=== PATIENT | female | born 1965 | race Two or more races ===

== ENCOUNTER → 2024-08-13 | Outpatient (CLI) | payer BC, MEDICARE, SELFPAY ==
--- NOTE | 2024-08-13 16:18 | EKG_ITS ---
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
== END | disposition home or self-care (01) ==
LOC: SEKG 16:10
PROVIDERS: PCP Family Medicine; Referring Provider Family Medicine; Visit Provider Family Medicine
DX: I45.81 Long QT syndrome (principal); I12.9 Hypertensive chronic kidney disease with stage 1 through stage 4 chronic kidney disease, or unspecified chronic kidney disease; E11.22 Type 2 diabetes mellitus with diabetic chronic kidney disease; N18.9 Chronic kidney disease, unspecified; D68.62 Lupus anticoagulant syndrome
CPT/HCPCS: 93005

== ENCOUNTER 2024-10-07 20:24 | Inpatient (IN) | payer BC, MEDICARE, SELFPAY ==
[2024-10-07] VITALS (10 sets, daily range): BP systolic 68–122; BP diastolic 46–69; PULSE 72–151; RESP 15–24; TEMP 36.4–36.6; O2SAT 95–97; BMI 20.1
--- NOTE | 2024-10-07 20:40 | EKG_ITS ---
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: : 1965 Requested By: Jori Cobos Order Number: [id number] Reading MD: Jori Cobos Measurements Intervals [place] Rate: 123 P: ME: QRS: 81 QRSD: 114 T: -55 QT: 280 QTc: 401 Interpretive Statements ATRIAL FIBRILLATION WITH RAPID VENTRICULAR RESPONSE MODERATE INTRAVENTRICULAR CONDUCTION DELAY [110+ ms QRS DURATION] MARKED ST DEPRESSION, CONSIDER SUBENDOCARDIAL INJURY [0.2+ mV ST DEPRESSION] Compared to ECG 08/13/2024 16:28:18 Intraventricular conduction delay now present ST (T wave) deviation now present Sinus rhythm no longer present T-wave abnormality no longer present Possible ischemia no longer present /store/S0/[id number]
[2024-10-07] MEDS: DEXTROSE 50%-WATER INJ 50 ML SYRINGE 25 ML IV (20:53)
[2024-10-07] MEDS: SODIUM CHLORIDE 0.9% 1000 ML 1,000 ML 40 ML IV (20:59)
[2024-10-07 21:09] LABS: Basophils # (Auto) 0.1 Thou/mm3 (0.0-0.2); Basophils % (Auto) 1 % (0-2.5); Eosinophils # (Auto) 0.1 Thou/mm3 (0.0-0.5); Eosinophils % (Auto) 1 % (0-10); Hematocrit 30.3 % (36.0-46.0); Hemoglobin 8.9 g/dL (12.0-16.0); Immature Granulocytes % (Auto) 0 % (0-0); Immature Granulocytes Auto 0.04 Thou/mm3 (0.00-0.00); Lymphocytes # (Auto) 1.1 Thou/mm3 (1.0-4.8); Lymphocytes % (Auto) 12 % (10-50); Mean Corpuscular HGB Conc 29.4 g/dl (31.0-37.0); Mean Corpuscular Hemoglobin 28.4 pg (25.0-35.0); Mean Corpuscular Volume 97 fL (80-100); Monocytes # (Auto) 0.6 Thou/mm3 (0.0-0.8); Monocytes % (Auto) 7 % (0-12); Neutrophils # (Auto) 7.3 Thou/mm3 (1.8-7.7); Neutrophils % (Auto) 80 % (37-80); Nucleated Red Blood Cell # 0.02 Thou/mm3 (0.00-0.00); Nucleated Red Blood Cell % 0 /100 WBC (0); Platelet Count 199 Thou/mm3 (140-440); RDW Standard Deviation 65.3 fL (36.4-46.3); Red Blood Count 3.13 Miln/mm3 (4.00-5.20); White Blood Count 9.1 Thou/mm3 (3.6-11.0)
--- NOTE | 2024-10-07 21:16 | EDNOTE_ITS ---
ED General RME/HPI General Chief complaint: Syncope / Near Syncope Stated complaint: LOW BP Time Seen by Provider: 10/07/24 20:34 Arrival date/time: 10/07/24 20:24 CC: Hypotension HPI patient presents the ER after a near syncopal episode at home while at the dinner table. EMS report pressures of 70/40. EJ was started they gave her 250 to 400 cc bolus pressures initially came up into the 120s over 60s and then promptly dropped during assessment. The patient has significant history for end-stage renal disease is on dialysis Mondays and Fridays, also has gallbladder tubes for drainage x 2 mitral valve stenosis coccidia might close this and is status post renal transplant. states the patient was given insulin and then did not eat secondary to the hypotension episode. Patient states she continues to feel lightheaded like she is going to pass out . states the patient took her 200 mg of amiodarone this evening. Patient denies palpitations chest pain shortness of breath or difficulty breathing. Patient reports dialysis today was just to clean her blood , there was no fluid taken off . Related Data Home Medications ?Medication ?Instructions ?Recorded ?Confirmed albuterol sulfate 90 mcg/actuation 2 puff inhalation Q4HR PRN 08/12/23 10/07/24 aerosol inhaler Shortness Of Breath allopurinol 100 mg tablet 100 mg PO DAILY 08/12/23 10/07/24 fluticasone fur. 100 mcg-umeclid 1 inh inhalation HS 08/12/23 10/07/24 62.5 mcg-vilant 25 mcg inhalat.powder (Trelegy Ellipta) fluticasone propionate 50 2 spray intranasal DAILY PRN 08/12/23 10/07/24 mcg/actuation nasal Shortness Of Breath Or Wheezing spray,suspension hydroxychloroquine 200 mg tablet 200 mg PO BID 08/12/23 10/07/24 pentoxifylline 400 mg 400 mg PO QPM 08/12/23 10/07/24 tablet,extended release prednisone 5 mg tablet 5 mg PO DAILY 08/12/23 10/07/24 warfarin 5 mg tablet 5 mg PO DAILY 08/12/23 10/07/24 cranberry extract 500 mg capsule 500 mg PO DAILY 09/28/23 10/07/24 furosemide 20 mg tablet (Lasix) 20 mg PO BID 02/08/24 10/07/24 multivitamin,tx-minerals 1 tab PO DAILY 02/08/24 10/07/24 posaconazole 100 mg tablet,delayed 400 mg PO QDAY 02/08/24 10/07/24 release (Noxafil) pregabalin 100 mg capsule 100 mg PO BID 02/08/24 10/07/24 tacrolimus 0.5 mg capsule, 0.5 mg PO DAILY 02/08/24 10/07/24 immediate-release (Prograf) amiodarone 400 mg tablet 400 mg PO 1XD 10/07/24 10/07/24 midodrine 10 mg tablet 10 mg PO 3XD 10/07/24 10/07/24 Previous Rx's ?Medication ?Instructions ?Recorded oxycodone-acetaminophen 10 mg-325 0.5 tab PO Q6HR PRN Pain #1 tab 10/03/23 mg tablet Allergies Allergy/AdvReac Type Severity Reaction Status Date / Time cefaclor Allergy Mild LIPS SWELL Verified 02/08/24 10:18 UP AND EYES sulfamethoxazole Allergy Mild Itching Verified 02/08/24 10:18 trimethoprim Allergy Mild Itching Verified 02/08/24 10:18 amoxicillin Allergy Unknown Diarrhea Verified 02/08/24 10:18 clavulanic acid Allergy Unknown Diarrhea Verified 02/08/24 10:18 Sulfa (Sulfonamide Allergy Unknown Swelling Verified 02/08/24 10:18 Antibiotics) Review of Systems Review of Systems Narrative Review of Systems: GEN: No fever, no chills, no weight loss EYES: No discharge, no visual changes, no pain HEENT: No ear pain, no congestion, no sore throat PULM: No shortness of breath, no cough, no congestion CV: No chest pain, no dyspnea on exertion, no palpitations GI: No nausea, no vomiting, no diarrhea, no pain, no constipation : No frequency, no urgency, no dysuria MUSC/SKEL: No joint pain, no back pain SKIN: No rash PSYCH: No hallucinations, no depression HEME/LYMPH: No easy bleeding or bruising tendencies NEURO: + weakness, no headache ED Exam Narrative Physical exam: [General: Frail, deconditioned, uncomfortable but not in any acute distress Head normocephalic HEENT: Eyes: Pupils are PERRLA EOMs are intact mouth pink dry membranes uvula is midline swallow symmetrical. Within acceptable limits Neck is supple nontender Chest equal chest rise nontender to palpation Respiratory: Clear to auscultation no wheezes crackles or rubs poor inspiratory effort CV: Rate rhythm is IRregular no murmurs rubs or clicks Abdomen is soft nontender no masses positive bowel sounds all 4 quadrants 2 drainage tubes admitting from the right upper quadrant of the abdomen both and draining bilious solution. Back: No CVA tenderness no spinous process tenderness from cervical spine thoracic and lumbar spine Skin: Dialysis shunt in the right upper arm dressing is clean dry and intact. Gallbladder draining tube site clean dry and intact. Skin in the lower extremities is mottled. Otherwise skin is intact no petechiae rash induration ulceration or crepitus Extremities: Moving all extremity against resistance cap refill less than 2 seconds neurosensory intact Neuro: Awake alert oriented x3 Glascow coma 15 no focal deficits] Course Course Course Narrative: During the course initial intervention patient was given a 500 cc bolus in addition addition to the 500 given by EMS and placed on 40 cc an hour the patient transitioned into A-fib RVR with rates highly variable between 120 and 160. Also at this time patient was noted to have a blood sugar of 69 was given and a half amp of D50. Started on maintenance dose fluids at 40 cc an hour. Patient has remained awake alert and oriented throughout the course. At 2127, patient blood pressure continues to improve, with a MAP greater than 60. Repeat EKG at 2126 shows a controlled ventricular rate in the 70 range. 2203 initial troponin is elevated at 4.66 at this time patient's troponins in the past have never been this elevated before, patient has had no chest pain. Heart rate now has remained stable with a ventricular rate in the 70s. Pressures have been soft in the 90s to 100s systolically. Patient's case then discussed with Dr. 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 Patient's case discussed with Dr. Nguyễn who agrees to accept the patient for admission for elevated troponin hypotension hypoglycemia. Quality Measures none Orders Category Date Time Status Bedside Blood Glucose Q1HR Care 10/07/24 20:54 Active EKG (ED ONLY) *Do not use* NOW Care 10/07/24 20:40 Completed EKG (ED ONLY) *Do not use* NOW Care 10/07/24 21:17 Completed Consult to Cardiology Stat Cons 10/07/24 22:06 Ordered EKG (ED Only) Stat Exams 10/07/24 20:40 Draft EKG (ED Only) Stat Exams 10/07/24 21:17 Draft B-Type Natriuretic Peptide Stat Lab 10/07/24 02:05 Completed CBC Stat Lab 10/07/24 02:05 Completed Comprehensive Metabolic Panel Stat Lab 10/07/24 02:05 Completed Drug Screen,Urine Stat Lab 10/07/24 20:40 Ordered LDH (Lactate Dehydrogenase) Stat Lab 10/07/24 02:05 Completed Magnesium Stat Lab 10/07/24 02:05 Completed Partial Thromboplastin Time Stat Lab 10/07/24 02:05 Completed Prothrombin Time with INR Stat Lab 10/07/24 02:05 Completed Troponin I Stat Lab 10/07/24 02:05 Completed Urinalysis Stat Lab 10/07/24 20:40 Ordered Dextrose 50% Syr [D50w Syringe Abboject] Med 10/07/24 20:50 Discontinued 25 ml IV X1 ONE Diltiazem Inj [Cardizem Inj] Med 10/07/24 20:44 Discontinued 10 mg IV X1 ONE Ringers Lactated 500 ml [Lactated Ringers] 500 ml Med 10/07/24 20:45 Discontinued IV 999 mls/hr Sodium Chloride 0.9% 1000 ml [Ns] 1,000 ml Med 10/07/24 21:00 Active IV 40 mls/hr Sodium Chloride 0.9% 500 ml [Ns] 500 ml Med 10/07/24 20:40 Discontinued IV 999 mls/hr Vital Signs Vital signs: Vital Signs Temperature 97.6 F 10/07/24 20:31 Pulse Rate 151 H 10/07/24 20:31 Respiratory Rate 15 10/07/24 20:31 Blood Pressure 122/69 10/07/24 20:31 Pulse Oximetry (%) 95 10/07/24 20:31 [facility] Patient data External records reviewed:: [facility] previous records and EMS form Clinical information provided by:: patient and EMS Social determinants that could affect healthcare access:: none Patient has the following chronic illnesses:: Antiphospholipid lipid syndrome renal transplant on CellCept lupus nephritis ESRD dialysis fibromyalgia hypertension on warfarin renal mass diabetes How is presenting disease/condition affected by chronic disease/condition?: e xacerbated by Evaluation data The following diagnostics were reviewed and interpreted by me:: lab results, radiology exam(s) and EKG tracing(s) Lab and/or radiology exams considered but not ordered:: Initial EKG performed at 2038 shows a ventricular of 123 QRS of 112 QTc of 349 this A-fib with RVR. Repeat EKG at 2056 shows a ventricular rate 134 QRS 113 QTc of 364 A-fib with RVR. 3rd EKG performed at 2126 shows a ventricular rate of 70 QRS of 116 QTc of 381 this is A-fib with a controlled ventricular rate. CBC shows WBCs at 9.1 H&H of 8.1 and 30.3 with platelets of 199 CMP shows sodium 140 potassium of 2.9 chloride of 98 CO2 24.8 BUN of 24 creatinine 3.01 glucose of 57. Note: Patient was bedside monitoring in the same range patient given half amp of D50 to correct the hypoglycemia Troponin at 4.669, review of previous troponins are elevated but not to this level. BNP is greater than 3280. Interpretation Summary: Patient hypotensive episode with A-fib RVR Medications Medications considered but not ordered:: None Medication administrations:: Medication Administration History Sodium Chloride (Ns) 1,000 mls @ 40 mls/hr IV .Q24H [place] Stop: 10/08/24 20:59 Last Admin: 10/07/24 20:59 Dose: 40 mls/hr Documented By: DANIELA Discontinued Medications Dextrose (Dextrose 50%-Water Inj 50 Ml Syringe) 25 ml IV X1 ONE Stop: 10/07/24 20:51 Last Admin: 10/07/24 20:53 Dose: 25 ml Documented By: DANIELA Diltiazem HCl (Diltiazem Inj 5 Mg/Ml Vial 5 Ml) 10 mg IV X1 ONE Stop: 10/07/24 20:45 Last Admin: 10/07/24 20:54 Dose: Not Given Documented By: DANIELA Non-Admin Reason: Cancelled by Provider Sodium Chloride (Ns) 500 mls @ 999 mls/hr IV .Q31M ONE Stop: 10/07/24 21:10 Last Admin: 10/07/24 20:58 Dose: Not Given Documented By: DANIELA Non-Admin Reason: Discontinued Comments: PER PILAR CORTEZ Lactated Ringer's (Lactated Ringers) 500 mls @ 999 mls/hr IV .Q31M ONE Stop: 10/07/24 21:15 Last Admin: 10/07/24 20:58 Dose: Not Given Documented By: CB Non-Admin Reason: Cancelled by Provider Comments: JORDI CORTEZ None Consultations Consultation(s) initiated? (list below): Yes Diagnosis Differential Diagnosis ED Complaint MDM: Hypotension hyponatremia near syncope A-fib RVR ESRD Most likely diagnosis given after review of the tests above:: Hypotension hyponatremia near syncope A-fib RVR, ESRD Admission Indicated Admission indicated?: indicated Explain why admission is indicated or not indicated:: Hasmukh further med management Admission Request Was there a request for admission?: No Disposition Plan Disposition Plan: Admit Medical Decision Making Differential Diagnosis Differential Diagnosis: Hypotension hyponatremia near syncope A-fib RVR ESRD Lab Data 10/07/24 02:05 10/07/24 02:05 Labs: Lab Results 10/07/24 Range/Units 02:05 WBC 9.1 (3.6-11.0) Thou/mm3 RBC 3.13 L (4.00-5.20) Miln/mm3 Hgb 8.9 L (12.0-16.0) g/dL Hct 30.3 L (36.0-46.0) % MCV 97 (80-100) fL MCH 28.4 (25.0-35.0) pg MCHC 29.4 L (31.0-37.0) g/dl RDW Std Deviation 65.3 H (36.4-46.3) fL Plt Count 199 (140-440) Thou/mm3 Neut % (Auto) 80 (37-80) % Lymph % (Auto) 12 (10-50) % [place] % (Auto) 7 (0-12) % Eos % (Auto) 1 (0-10) % Baso % (Auto) 1 (0-2.5) % Neut # (Auto) 7.3 (1.8-7.7) Thou/mm3 Lymph # (Auto) 1.1 (1.0-4.8) Thou/mm3 [place] # (Auto) 0.6 (0.0-0.8) Thou/mm3 Eos # (Auto) 0.1 (0.0-0.5) Thou/mm3 Baso # (Auto) 0.1 (0.0-0.2) Thou/mm3 Immature Gran # (Auto) 0.04 H (0.00-0.00) Thou/mm3 Absolute Nucleated RBC 0.02 H (0.00-0.00) Thou/mm3 Immature Gran % 0 (0-0) % Nucleated RBC % 0 (0) /100 WBC PT 31.1 H* (9.0-12.2) Seconds INR 3.2 H (0.9-1.3) APTT 38.5 H (22.0-36.0) Seconds Sodium 140 (136-145) mMol/L Potassium 2.9 L (3.4-5.1) mMol/L Chloride 98 (98-107) mMol/L Carbon Dioxide 24.8 (20.0-31.0) mMol/L Anion Gap 17 H (7-16) BUN 24 H (9-23) mg/dL Creatinine 3.0 H (0.6-1.3) mg/dL Estim Creat Clear Calc 18.5 L (>60) mL/min eGFR 18 L (60 - ) See Note BUN/Creatinine Ratio 8 L (12-20) Ratio Glucose 57 L (74-106) mg/dL Calculated Osmolality 281 (275-295) Calcium 8.3 (8.3-10.6) mg/dL Corrected Calcium 8.9 (8.5-10.1) mg/dL Magnesium 1.8 (1.6-2.6) mg/dL Total Bilirubin 0.7 (0.3-1.2) mg/dL AST 28 (0-34) U/L ALT 16 (10-49) U/L Alkaline Phosphatase 130 H (46-116) U/L Lactate Dehydrogenase 285 H (120-246) U/L Troponin I 4.669 H* (0.0-0.045) ng/mL B-Natriuretic Peptide > 3280 H* (0-100) pg/mL Total Protein 6.0 (5.7-8.2) gm/dL Albumin 3.3 L (3.5-5.0) gm/dL Globulin 2.7 (2.3-3.5) gm/dL Albumin/Globulin Ratio 1.2 (1.2-2.2) Critical Care Time Critical Care Time Critical Care Time: Yes Total Critical Care Time (min.): 38 Attestation: Excluding procedures Discharge Plan Plan Patient Disposition: Other Care w/in Hosp ([facility]) Patient condition on transfer: Stable Prescriptions/Referrals Prescriptions/Med Rec: No Action prednisone 5 mg tablet 5 mg PO DAILY Patient Comments: TAKE ONE TABLET BY MOUTH EVERY DAY allopurinol 100 mg tablet 100 mg PO DAILY Patient Comments: TAKE ONE TABLET BY MOUTH EVERY DAY elevated uric acid/ FOR GOUT pentoxifylline 400 mg tablet extended release 400 mg PO QPM Patient Comments: TAKE ONE TABLET BY MOUTH EVERY DAY AT BED TIME warfarin 5 mg tablet 5 mg PO DAILY Patient Comments: TAKE ONE TABLET BY MOUTH EVERY DAY MONDAY- MONDAY AND TAKE 1/2 TABLET BY MOUTH EVERY DAY ON MONDAY-MONDAY Rx Instructions: 5MG PO MONDAY-MONDAY AND 2.5MG MONDAY/MONDAY hydroxychloroquine 200 mg tablet 200 mg PO BID Patient Comments: TAKE ONE TABLET BY MOUTH EVERY DAY albuterol sulfate 90 mcg/actuation HFA aerosol inhaler 2 puff INHALATION Q4HR PRN (Reason: Shortness Of Breath) Patient Comments: INHALE TWO PUFFS BY MOUTH EVERY 4 TO 6 HOURS NEEDED FOR BREATHING AND SHORTNESS OF BREATH fluticasone propionate 50 mcg/actuation spray,suspension 2 spray INTRANASAL DAILY PRN (Reason: Shortness Of Breath Or Wheezing) Patient Comments: INSERT TWO SPRAYS IN EACH NOSTRIL DAILY FOR ALLERGIES Trelegy Ellipta 100-62.5-25 mcg blister with device 1 inh INHALATION HS Patient Comments: INHALE ONE PUFF BY MOUTH EVERY DAY; RINSE THE MOUTH with water AFTER USE. furosemide [Lasix] 20 mg Tablet 20 mg PO BID Rx Instructions: ONE IN THE AM AND ONE AT NOON multivitamin,tx-minerals Tablet 1 tab PO DAILY Rx Instructions: AT NOON pregabalin 100 mg Capsule 100 mg PO BID posaconazole [Noxafil] 100 mg Tablet,Delayed Release (Dr/Ec) 400 mg PO QDAY Rx Instructions: AT NOON tacrolimus [Prograf] 0.5 mg capsule 0.5 mg PO DAILY cranberry extract 500 mg Capsule 500 mg PO DAILY oxycodone-acetaminophen 10-325 mg tablet 0.5 tab PO Q6HR PRN (Reason: Pain) Qty: 1 0RF Patient Comments: TAKE ONE TABLET BY MOUTH EVERY 4 TO 6 HOURS NEEDED FOR PAIN amiodarone 400 mg tablet 400 mg PO 1XD midodrine 10 mg tablet 10 mg PO 3XD Patient Comments: TAKE 1 TABLET BY MOUTH THREE TIMES DAILY Referrals: Ralf Ozuna MD [Primary Care Provider] - In 1 week Problem List Clinical Impression: Near syncope, ESRD (end stage renal disease) on dialysis, Hypoglycemia, Hypotension, Troponin level elevated, Atrial fibrillation with RVR Patient/Caregiver Discharge Instructions Print Language: Latvian Stand Alone Forms: Sussy Award Info., Patient Portal Info Letter PA/KNITTING SUPERVISOR Supervising Physician PA/KNITTING SUPERVISOR Supervising Physician: Jori Delgado ENP
--- NOTE | 2024-10-07 21:17 | EKG_ITS ---
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
[2024-10-07 21:29] LABS: INR 3.2 (0.9-1.3); Partial Thromboplastin Time 38.5 Seconds (22.0-36.0)
[2024-10-07 21:33] LABS: Alanine Aminotransferase 16 U/L (10-49); Albumin, Serum 3.3 gm/dL (3.5-5.0); Albumin/Globulin Ratio 1.2 (1.2-2.2); Alkaline Phosphatase 130 U/L (46-116); Anion Gap 17 (7-16); Aspartate Amino Transferase 28 U/L (0-34); B-Type Natriuretic Peptide > 3280 pg/mL (0-100); BUN/Creatinine Ratio 8 Ratio (12-20); Bilirubin,Total 0.7 mg/dL (0.3-1.2); Blood Urea Nitrogen 24 mg/dL (9-23); Calcium 8.3 mg/dL (8.3-10.6); Calcium (Corrected) 8.9 mg/dL (8.5-10.1); Carbon Dioxide 24.8 mMol/L (20.0-31.0); Chloride 98 mMol/L (98-107); Estimated Creatinine Clearance 18.5 mL/min (>60); Globulin 2.7 gm/dL (2.3-3.5); Glucose 57 mg/dL (74-106); LDH (Lactate Dehydrogenase) 285 U/L (120-246); Magnesium 1.8 mg/dL (1.6-2.6); Osmolality,Calculated 281 (275-295); Potassium 2.9 mMol/L (3.4-5.1); Sodium 140 mMol/L (136-145); eGFR 18 See Note
[2024-10-07 21:35] LABS: Troponin I 4.669 ng/mL (0.0-0.045)
[2024-10-07 21:58] LABS: Prothrombin Time 31.1 Seconds (9.0-12.2)
--- NOTE | 2024-10-07 22:08 | XR_ITS ---
Examination: AP chest single view Technique: AP portable upright chest single view Exam date and time: October 07, 2024 at 10:40 PM Indications: Hypertension today. Findings: Poor inspiration Normal heart size Moderate vascular congestion Blunting of the left lateral costophrenic angle No lobar pneumonia or elli pulmonary edema Mild osteopenia Impression: Moderate vascular congestion If symptoms persist recommend follow-up better inspiratory effort chest x-ray
--- NOTE | 2024-10-07 22:33 | EVENTNT_ITS ---
Documentation for date of: 10/07/24 Event Note Event Note: A 59-year-old female presented to the ER with the chief complaint of a near- syncopal episode. The patient reported feeling like she was going to faint while seated at the dinner table but denied losing consciousness. Her blood sugar was checked at home before dinner and measured above 90, after which her administered insulin. The episode occurred shortly afterward. She described the sensation as the lights going out and noted that she had not eaten all day following her dialysis session earlier. EMS reported her blood pressure as 70/40 upon arrival, which improved to the 120s/60s after a bolus of 250?400 cc fluids but dropped again during assessment. She continued to feel lightheaded in the ER. The patient denied chest pain, palpitations, shortness of breath, fever, nausea, or vomiting. Pertinent negatives included no recent sick contacts or travel. 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 Surgical history includes placement of gallbladder drainage tubes after complicated cholecystitis with partial gallbladder removal, and a left renal mass under surveillance. The patient is on a regimen of warfarin, allopurinol, hydroxychloroquine, posaconazole, prednisone, pregabalin, tacrolimus, midodrine, oxycodone, and amiodarone. Functionally, she is wheelchair-dependent and unable to ambulate, even with a walker. In the Emergency Department, vital signs were recorded as temperature 97.6?F, HR 151 bpm, RR 15 breaths/min, and BP 68/54 mmHg. EKG showed atrial fibrillation with rapid ventricular response (A-fib RVR). Laboratory findings included glucose 57 mg/dL, WBC 9.1, hemoglobin 8.9 g/dL, platelets 199, potassium 2.9 mmol/L, BUN 24 mg/dL, creatinine 3.0 mg/dL, troponin 4.669 ng/mL, and BNP >3280 pg/mL. She received diltiazem 10 mg IV and one ampule of Dextrose 50 for management of her symptoms. A tallier was consulted. The patient is being admitted for further evaluation and management of elevated cardiac enzymes, hypotension, and hypoglycemia. Assessment and plan # Near-Syncopal Episode in the Setting of Hypoglycemia and Hypotension - Likely multifactorial, including insulin administration without food intake, recent dialysis, and atrial fibrillation with rapid ventricular response. - Monitor hemodynamics closely with continuous telemetry. - Resume oral intake as tolerated with pre-meal and bedtime glucose checks. - Initiate glucose infusion if needed. - Hold insulin temporarily. - Continue midodrine for hypotension. # Atrial Fibrillation with Rapid Ventricular Response - Continue amiodarone PO. - Consult cardiology. - Maintain anticoagulation with warfarin. # Elevated Troponin - No chest pain. - Likely secondary to demand ischemia. - Obtain serial troponins to monitor trends. # Chronic End-Stage Renal Disease on Hemodialysis - Continue current hemodialysis schedule. # Chronic Gallbladder Drainage and Upcoming ERCP - Continue current drainage care. - Monitor for signs of infection or biliary obstruction. # Antiphospholipid Syndrome - Hold warfarin temporarily due to elevated INR. - Monitor INR closely and adjust anticoagulation as needed. # Chronic Conditions: Systemic Lupus Erythematosus, Valley Fever, and Fibromy algia - Continue home medications: prednisone, posaconazole, and pregabalin.
--- NOTE | 2024-10-07 22:59 | ESHP_ITS ---
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 Patient follows up with PCP Dr Ozuna, Pathology Technologist in [place], broom handle dipper Dr. Nelson in [place]. Since patient had a partial cholecystectomy in 2023 she has had chronic diarrhea. She had dialysis this morning and did not eat for the day as she did not want to have diarrhea. This evening she had dinner and her scheduled insulin 70/30 5 units. Afterwards she was sitting and started to see black and feel like if she wanted to faint. Denied any LOC, dizziness, headache, chest pain/pressure, palpitations and SOB. Subsequently her called the ambulance and she presented to the ED. Blood glucose on arrival was 57. Patient currently A&O x 3 and recheck blood glucose 99 after given juice and crackers. With regards to her antiphospholipid antibody syndrome, patient is on warfarin 2.5 mg p.o. every other day. Her last dose was on 10/05/2024 and instructed not to take another dose by her PCP, Dr Ozuna until 10/09/2024. ED course: BP 105/55, pulse 77, RR 18, temp 97.6 F, SpO2 95% on room air. Hb 8.9, HCT 30.3, K2.9, BUN 24, CR 3, glucose 57, PT 31, INR 3.2, PTT 38.5, troponin 4.6 , BNP 3280. Chest x-ray significant for increased vascular markings bilaterally, no signs of pulmonary edema or pleural effusion. EKG significant for A-fib, rate [address] changes. Patient given 25 cc of D50 in the ED. Patient will be admitted for treatment and management of presyncope secondary to hypoglycemia. Review of Systems Review of Systems Narrative Review of Systems: GENERAL: Denies fever/chills or diaphoresis. HEENT: Denies headaches or visual changes. Denies discharge. Neuro: Denies unusual weakness or difficulty speaking. CARDIO: Denies chest pain or palpitations. PULM: Denies SOB, couging or wheezing. GI: Denies abdominal pain, N/V/C/D. Reports having BMs. URO: Denies buring/itching/pain/urinary changes. MSK/EXT/SKIN: Denies joint/skeletal/muschle pain, issues/changes in upper or lower extremities, itchiness, or superficial pain. PSYCH: Cooperative, pleasant mood & affect. The rest of the review of systems is otherwise negative. Past Medical History Past Medical History Comments PM COMMENT: Past medical history: ? SLE ? Lupus nephritis ? ESRD on hemodialysis via right brachiobasilic fistula ? Insulin-dependent diabetes mellitus type 2 - Diabetic neuropathy ? Antiphospholipid antibody syndrome ? Gout ? Mitral stenosis ? Atrial fibrillation ? History of valley fever Medication list: ? Albuterol inhaler as needed ? Allopurinol 100 Mg p.o. daily ?Amiodarone 200 Mg p.o. daily ? Fluticasone nasal spray as needed ? Lasix 20 Mg p.o. twice daily ? Hydroxychloroquine 200 Mg p.o. twice daily ? Midodrine 10 Mg p.o. 3 times daily ? Pentoxifylline 400 Mg p.o. every afternoon - Posaconazole 400mg po Qday - Prednisone 5 mg po daily ? Pregabalin 100 Mg p.o. twice daily ? Tacrolimus 0.5 Mg p.o. daily ? Trelegy inhaler 1 puff p.o. at bedtime ? Warfarin 2.5 Mg p.o. every other day. Past surgical history: ? Tonsillectomy as a child ? Total abdominal hysterectomy secondary to menorrhagia 2002 - C5-7 cervical fusion 2010 ? Partial colectomy at [facility] 2015 ? Kidney transplant at [facility] 2019 - Partial cholecystectomy at [facility] April 2024 Allergies: Sulfa drugs - itching Augmentin - diarrhea Social history: Occupational History: Previously worked the [employer]. Medically retired February 2012 Education Level: Graduated high school Marital Status: with 2 kids Tobacco use: Denies ETHO use: Denies Illicit drug use: Denies Social History Note: lives with . At baseline patient is wheelchair- bound but can stand with assistance. Exam Vital Signs Temp Pulse Resp BP Pulse Ox O2 Del Method 97.6 F 77 18 101/55 L 95 Room Air 10/07/24 20:31 10/07/24 22:08 10/07/24 22:08 10/07/24 22:08 10/07/24 22:08 10/07/24 22:08 Narrative Exam Constitutional Alert, oriented x 3 and comfortable. Elderly female on O2 via NC. HEENT Vision grossly intact. Patent nares. Trachea midline. Respiratory Chest normal on inspection and decreased air entry at bases with atelectasis. Cardiovascular S1 and S2 audible, RRR. 3/6 systolic murmur at left sternal border. JVD not assessed. Abdominal Soft, obese and non tender to palpation in all quadrants. Umbilicus everted but reducible. BS +. Genitourinary No bladder tenderness, no flank pain. Normal to palpation. Musculoskeletal Extremities tone within normal limits. No LE edema. Neurological CN II - XII grossly intact. Extremity motor and sensation grossly intact. Skin Warm, dry and intact. Hyper pigmentation on lower shins. Psychiatric Patient has good affect, is cooperative. Results: Labs 10/07/24 20:55 10/07/24 20:55 Labs: Short CBC 10/07/24 Range/Units 20:55 WBC 9.1 (3.6-11.0) Thou/mm3 Hgb 8.9 L (12.0-16.0) g/dL Hct 30.3 L (36.0-46.0) % Plt Count 199 (140-440) Thou/mm3 BMP 10/07/24 20:55 Sodium 140 Potassium 2.9 L Chloride 98 Carbon Dioxide 24.8 BUN 24 H Creatinine 3.0 H Glucose 57 L Calcium 8.3 Cardiac Enzymes 10/07/24 Range/Units 20:55 Troponin I 4.669 H* (0.0-0.045) ng/mL Liver Function 10/07/24 Range/Units 20:55 Total Bilirubin 0.7 (0.3-1.2) mg/dL AST 28 (0-34) U/L ALT 16 (10-49) U/L Alkaline Phosphatase 130 H (46-116) U/L Albumin 3.3 L (3.5-5.0) gm/dL Quality Measures Quality Measures none Medications Home Medications and Allergies Home Medications ?Medication ?Instructions ?Recorded ?Confirmed ?Type albuterol sulfate 90 mcg/actuation 2 puff inhalation Q4HR PRN 08/12/23 10/07/24 History aerosol inhaler Shortness Of Breath allopurinol 100 mg tablet 100 mg PO DAILY 08/12/23 10/07/24 History fluticasone fur. 100 mcg-umeclid 1 inh inhalation HS 08/12/23 10/07/24 History 62.5 mcg-vilant 25 mcg inhalat.powder (Trelegy Ellipta) fluticasone propionate 50 2 spray intranasal DAILY PRN 08/12/23 10/07/24 History mcg/actuation nasal Shortness Of Breath Or Wheezing spray,suspension hydroxychloroquine 200 mg tablet 200 mg PO BID 08/12/23 10/07/24 History pentoxifylline 400 mg 400 mg PO QPM 08/12/23 10/07/24 History tablet,extended release prednisone 5 mg tablet 5 mg PO DAILY 08/12/23 10/07/24 History warfarin 5 mg tablet 5 mg PO DAILY 08/12/23 10/07/24 History cranberry extract 500 mg capsule 500 mg PO DAILY 09/28/23 10/07/24 History furosemide 20 mg tablet (Lasix) 20 mg PO BID 02/08/24 10/07/24 History multivitamin,tx-minerals 1 tab PO DAILY 02/08/24 10/07/24 History posaconazole 100 mg tablet,delayed 400 mg PO QDAY 02/08/24 10/07/24 History release (Noxafil) pregabalin 100 mg capsule 100 mg PO BID 02/08/24 10/07/24 History tacrolimus 0.5 mg capsule, 0.5 mg PO DAILY 02/08/24 10/07/24 History immediate-release (Prograf) amiodarone 400 mg tablet 400 mg PO 1XD 10/07/24 10/07/24 History midodrine 10 mg tablet 10 mg PO 3XD 10/07/24 10/07/24 History Allergies Allergy/AdvReac Type Severity Reaction Status Date / Time cefaclor Allergy Mild LIPS SWELL Verified 02/08/24 10:18 UP AND EYES sulfamethoxazole Allergy Mild Itching Verified 02/08/24 10:18 trimethoprim Allergy Mild Itching Verified 02/08/24 10:18 amoxicillin Allergy Unknown Diarrhea Verified 02/08/24 10:18 clavulanic acid Allergy Unknown Diarrhea Verified 02/08/24 10:18 Sulfa (Sulfonamide Allergy Unknown Swelling Verified 02/08/24 10:18 Antibiotics) Visit Medications Acetaminophen (Acetaminophen 325 Mg Tablet) 650 mg PO Q6H PRN PRN Reason: Fever >101.5 Stop: 11/06/24 22:20 Allopurinol (Allopurinol 100 Mg Tablet) 100 mg PO QDAY WINSTON Stop: 11/07/24 08:59 Amiodarone HCl (Amiodarone Hcl 200 Mg Tablet) 200 mg PO QDAY W[place] Stop: 11/07/24 08:59 Dextrose (Dextrose 50%-Water Inj 50 Ml Syringe) 25 ml IV Q15MIN PRN PRN Reason: BG 50-70 responsive npo pt Stop: 11/06/24 22:46 Dextrose (Dextrose 50%-Water Inj 50 Ml Syringe) 50 ml IV Q15MIN PRN PRN Reason: BG <50 OR BG <70 & pt unresponsive Stop: 11/06/24 22:46 Glucagon (Glucagon Inj 1 Mg Vial) 1 mg IM Q15MIN PRN PRN Reason: BG <70, and no IV access Hydroxychloroquine Sulfate (Hydroxychloroquine 200 Mg Tablet) 200 mg PO BID W[place]ON Stop: 10/15/24 08:59 Sodium Chloride (Ns) 1,000 mls @ 40 mls/hr IV .Q24H [place] Stop: 10/08/24 20:59 Last Admin: 10/07/24 20:59 Dose: 40 mls/hr Midodrine (Midodrine 5 Mg Tablet) 10 mg PO TID W[place]ON Stop: 11/06/24 22:44 Non-Formulary Medication (Posaconazole) 400 mg POi DAILY W[place]ON Stop: 11/07/24 08:59 Pharmacy Consult (Pharmacy To Dose Warfarin) 1 each PO QDAY W[place]ON Stop: 11/07/24 08:59 Prednisone (Prednisone 5 Mg Tablet) 5 mg PO QAM [place] Stop: 11/07/24 08:59 Pregabalin (Pregabalin 75 Mg Capsule) 100 mg PO BID W[place]ON Stop: 11/07/24 08:59 Discontinued Medications Dextrose (Dextrose 50%-Water Inj 50 Ml Syringe) 25 ml IV X1 ONE Stop: 10/07/24 20:51 Last Admin: 10/07/24 20:53 Dose: 25 ml Diltiazem HCl (Diltiazem Inj 5 Mg/Ml Vial 5 Ml) 10 mg IV X1 ONE Stop: 10/07/24 20:45 Last Admin: 10/07/24 20:54 Dose: Not Given Sodium Chloride (Ns) 500 mls @ 999 mls/hr IV .Q31M ONE Stop: 10/07/24 21:10 Last Admin: 10/07/24 20:58 Dose: Not Given Lactated Ringer's (Lactated Ringers) 500 mls @ 999 mls/hr IV .Q31M ONE Stop: 10/07/24 21:15 Last Admin: 10/07/24 20:58 Dose: Not Given Potassium Chloride (Potassium Chloride 20 Meq Tabcr) 20 meq PO X1 ONE Stop: 10/07/24 22:53 Assessment & Plan Plan Patient is a 59-year-old female with an extensive past medical history significant for SLE, lupus nephritis s/p kidney transplant 2019, end-stage renal disease on hemodialysis M/F, insulin-dependent diabetes mellitus type 2, antiphospholipid antibody syndrome on warfarin, gout, mitral stenosis, atrial fibrillation on amiodarone, 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 Patient follows up with PCP Dr Ozuna, Pathology Technologist in [place], broom handle dipper Dr. Nelson in [place]. Patient will be admitted for treatment and management of presyncope secondary to hypoglycemia. 1. Presyncope secondary to hypoglycemia Patient had poor oral intake yesterday and still took her scheduled dose of insulin 70/30 5 units at dinner. Subsequently patient said she saw black and felt as if she needed to faint. Did not lose consciousness. Etiology: Likely multifactorial including dialysis, hypoglycemia, hypotension, atrial fibrillation, mitral stenosis. Plan: ? Renal diet ? Blood glucose checks - D5 infusion if necessary 2. Chronic diastolic Heart failure with preserved ejection fraction [EF 55-60%] 3. Atrial fibrillation?paroxysmal 4. Mitral stenosis 5. NSTEMI type I versus type II Patient currently denies any symptoms of ACS including chest pain/pressure, palpitations, PND/orthopnea, SOB, heartburn. Transthoracic echocardiogram completed on 02/08/2024 findings include: EF is visually estimated at 55-60%. Mild to moderate RV enlargement. LA severely dilated. Heavily calcified and thickened mitral valve with moderate MS. On admission EKG significant for atrial fibrillation, rate 103. No acute ST changes Troponin 4.669, BNP >3280 Troponinemia most likely secondary to end-stage renal disease and supply demand mismatch from hypoglycemia and hypotension. Home diuretic Lasix 20 Mg p.o. twice daily NYHA class B stage II [id number]: 6 points; 9.7% stroke risk per year HAS-BLED : 4 points; high risk of major bleeding Plan: ? Strict input output ? Daily weight ? 2 g sodium restricted diet ? 1500 cc/day fluid restriction ? Home diuretic furosemide on hold for now in light of hypotension ? Resumed home rate control amiodarone 200 Mg p.o. daily ? Cardiology, Dr. Mo Waters consulted and closely following the case. Appreciate recommendations 6. ESRD on hemodialysis via right brachiobasilic fistula M/F Patient last had hemodialysis today. Patient's broom handle dipper Dr. Nelson in [place] Plan: ? Renal diet ? Renally dose medication ? Avoid nephrotoxic agents ? Nephrology, Dr Suresh consulted and closely following the case. Appreciate recommendations 7. SLE 8. Lupus nephritis s/p kidney transplant 2019 9. Antiphospholipid antibody syndrome on Warfarin Home medication hydroxychloroquine 200 Mg p.o. twice daily, prednisone 5 Mg p.o. daily, warfarin 2.5 Mg p.o. every other day. PT 31, INR 3.2, PTT 38.5 Plan: ? Repeat coagulation panel in the a.m. ? Warfarin on hold for now in light of supra therapeutic INR ? Resumed home medication hydroxychloroquine 200 Mg p.o. twice daily ? Resumed home medication prednisone 5 Mg p.o. daily 10. Insulin-dependent diabetes mellitus type 2 Last HbA1c from 02/09/2024 5.5 Patient's home medication insulin 70/30 5 units twice daily Plan: ? Repeat HbA1c ? Hypoglycemia protocol in place ? Insulin on hold for now in light of hypoglycemic episode 11. Gout 12. History of valley fever on lifelong posaconazole Patient's home medication allopurinol 100 Mg p.o. daily and posaconazole 400 mg po Q day Plan: ? Resumed home medication posaconazole 400 mg po daily 13. Hypokalemia K 2.9 Plan : - KCL 20 meq po x 1 Health maintenance: Disposition: Blood glucose control. Cardiology and Nephrology consults Diet: Renal Lines: pIVs GI Prophylaxis: None Thrombo Prophylaxis: SCDs Code status: FULL CODE Plan of care discussed with Attending Dr. Gopi Fang MD PGY 1 Attending Provider Attestation/Addendum Pt was evaluated and plan formulated together with the housestaff team. I have reviewed the residents note above and agree with most of its content. Please refer to the residents note for additional details.
[2024-10-07 23:09] LABS: Troponin I 5.042 ng/mL (0.0-0.045)
[2024-10-07] MEDS: POTASSIUM CHLORIDE 20 mEq TABCR PO (23:26)
[2024-10-07] MEDS: MIDODRINE 5 MG TABLET 10 MG PO (23:26)
[2024-10-08] VITALS (16 sets, daily range): BP systolic 96–120; BP diastolic 51–72; PULSE 59–80; RESP 16–25; TEMP 35.9–36.4; O2SAT 93–97
--- NOTE | 2024-10-08 03:05 | PC.RT ---
Pt has used an IS previously and does not want to attempt at this time, pt instructed on use of device and given pamphlet that comes with device.
[2024-10-08] MEDS: hydrOXYzine HCL 25 MG TABLET 12.5 MG PO (05:39)
[2024-10-08] MEDS: MIDODRINE 5 MG TABLET 10 MG PO ×2 (05:39→13:11)
[2024-10-08 06:06] LABS: Basophils # (Auto) 0.1 Thou/mm3 (0.0-0.2); Basophils % (Auto) 1 % (0-2.5); Eosinophils # (Auto) 0.1 Thou/mm3 (0.0-0.5); Eosinophils % (Auto) 1 % (0-10); Hematocrit 30.6 % (36.0-46.0); Hemoglobin 9.1 g/dL (12.0-16.0); Immature Granulocytes % (Auto) 0 % (0-0); Immature Granulocytes Auto 0.03 Thou/mm3 (0.00-0.00); Lymphocytes # (Auto) 1.1 Thou/mm3 (1.0-4.8); Lymphocytes % (Auto) 15 % (10-50); Mean Corpuscular HGB Conc 29.7 g/dl (31.0-37.0); Mean Corpuscular Hemoglobin 28.7 pg (25.0-35.0); Mean Corpuscular Volume 97 fL (80-100); Monocytes # (Auto) 0.6 Thou/mm3 (0.0-0.8); Monocytes % (Auto) 8 % (0-12); Neutrophils # (Auto) 5.6 Thou/mm3 (1.8-7.7); Neutrophils % (Auto) 75 % (37-80); Nucleated Red Blood Cell # 0.03 Thou/mm3 (0.00-0.00); Nucleated Red Blood Cell % 0 /100 WBC (0); Platelet Count 188 Thou/mm3 (140-440); RDW Standard Deviation 66.3 fL (36.4-46.3); Red Blood Count 3.17 Miln/mm3 (4.00-5.20); White Blood Count 7.5 Thou/mm3 (3.6-11.0)
[2024-10-08 06:16] LABS: INR 3.3 (0.9-1.3)
[2024-10-08 06:53] LABS: Anion Gap 19 (7-16); BUN/Creatinine Ratio 7 Ratio (12-20); Blood Urea Nitrogen 25 mg/dL (9-23); Calcium 8.5 mg/dL (8.3-10.6); Carbon Dioxide 22.2 mMol/L (20.0-31.0); Chloride 98 mMol/L (98-107); Creatinine (Component) 3.5 mg/dL (0.6-1.3); Estimated Creatinine Clearance 15.9 mL/min (>60); Glucose 70 mg/dL (74-106); Osmolality,Calculated 279 (275-295); Potassium 3.2 mMol/L (3.4-5.1); Sodium 139 mMol/L (136-145); eGFR 15 See Note
[2024-10-08 06:54] LABS: Prothrombin Time 33.2 Seconds (9.0-12.2)
[2024-10-08 06:57] LABS: Glucose Estimated Average 65 mg/dL (80-131); Hemoglobin A1C 3.9 % Hgb (4.8-6.0)
[2024-10-08 07:01] LABS: Troponin I 6.464 ng/mL (0.0-0.045)
--- NOTE | 2024-10-08 07:41 | ECHO_ITS ---
Transthoracic Echo Report Ht (in): 66 Wt (lb): 125 Exam Location: [facility] Status: Inpatient Manager Career: Lauren Hooks Indications: Procedure Performed: BP: 107 / 64 HR: 73 Rhythm: Sinus Technical Quality: Fair MEASUREMENTS (Male / Female) Normal Values 2D ECHO LV Diastolic Diameter PLAX 4.4 cm 4.2 - 5.9 / 3.9 - 5.3 cm LV Systolic Diameter PLAX 3.4 cm IVS Diastolic Thickness 1.1 cm 0.6 - 1.0 / 0.6 - 0.9 cm LVPW Diastolic Thickness 1.0 cm 0.6 - 1.0 / 0.6 - 0.9 cm LV Relative Wall Thickness 0.5 LVOT Diameter 1.5 cm LA Volume Index 96.8 cm?/m? 16 - 28 cm?/m? Ascending Aorta Diameter 2.5 cm M-MODE Aortic Root Diameter MM 2.7 cm LA Systolic Diameter MM 4.8 cm LA Ao Ratio MM 1.8 AV Cusp Separation MM 1.7 cm DOPPLER AV Peak Velocity 195.0 cm/s AV Peak Gradient 15.2 mmHg AV Mean Gradient 7.0 mmHg AV Velocity Time Integral 34.0 cm AI Peak Velocity 393.0 cm/s AI Peak Gradient 61.8 mmHg AI Pressure Half Time 309.0 ms LVOT Peak Velocity 124.0 cm/s LVOT Peak Gradient 6.2 mmHg LVOT Velocity Time Integral 19.6 cm LVOT Cardiac Index 1559.8 cm?/min?m? AV Area Cont Eq vti 1.0 cm? AV Area Cont Eq pk 1.1 cm? MV Peak Velocity 276.3 cm/s MV Peak Gradient 30.5 mmHg MV Mean Velocity 149.3 cm/s MV Mean Gradient 11.0 mmHg MV Area PHT 2.1 cm? MR Peak Velocity 492.3 cm/s MR Peak Gradient 97.0 mmHg Mitral E Point Velocity 238.0 cm/s Mitral A Point Velocity 105.0 cm/s Mitral E to A Ratio 2.3 LV E' Lateral Velocity 3.8 cm/s Mitral E to LV E' Lateral Ratio 62.5 LV E' Septal Velocity 4.0 cm/s Mitral E to LV E' Septal Ratio 59.1 TR Peak Velocity 322.3 cm/s TR Peak Gradient 41.6 mmHg FINDINGS Left Ventricle Normal left ventricular size, wall thickness. Mild systolic dysfunction. Hypokiensis INFERIOR latera l and posterior wallT segments ejection fraction is visually estimated at 40-45%. Right Ventricle The right ventricle is mildly dilated. Mild systolic dysfunction. The estimated right ventricular sy stolic pressure, 73mmHg. RAP 15. Left Atrium The left atrium is severely dilated. Right Atrium The right atrium is normal by two-dimensional imaging, color flow and Doppler imaging with no struct ural abnormalities, no thrombus formation present. Atrial Septum The interatrial septum appears normal with no evidence of a shunt. Aorta The aorta is normal by two-dimensional, color flow and Doppler interrogation. Mitral Valve The mitral valve is severely stenosis, mean gradient 12mmHg, Severe MAC. There is moderate mitral v alve regurgitation. Aortic Valve The aortic valve is trileaflet and normal by two-dimensional, color flow and Doppler interrogation. There is mild aortic valve regurgitation. Tricuspid Valve The tricuspid valve is normal by two-dimensional, color flow and Doppler interrogation. There is mil d to moderate tricuspid valve regurgitation. Pulmonic Valve There is mild pulmonic valve regurgitation. Vessels The pulmonary artery appears normal. The inferior vena cava pulmonary and hepatic veins appear dilat ed. Pericardium The pericardium is normal by two-dimensional imaging. There is no significant pericardial effusion. CONCLUSIONS Normal LV size. with Mild systolic dysfunction. Mild hypokinesis inferior lateral and posterior wall . Estimated EF 45% Mild RV dilatation. Mild RV dysfunction. Estimated RVSP 73mmHg. Severe LA dilatation Seevere degegenerative mitral valve annulus calcification with MODERATE mitral valve stenosis, mean gradient 10mmHg. Pressure 1/2 time 105 with mitral valve area 2.1 sq cm by this method Modearte mitral regurgitation Moderate TR, Mild pulmic and mild aortic valve regurgitation. IVC dilated. Sun Morse (Electronically Signed) Final Date: 08 October 2024 16:51
--- NOTE | 2024-10-08 08:38 | ESCONSULT_ITS ---
HPI Data of Consult Consult date: 10/08/24 Requesting Physician: Randall Nugyễn MD Admitting Provider: Randall Nguyễn MD Attending Provider: Randall Nguyễn MD Primary Care Provider: Ralf Ozuna MD Consult Narrative Reason for consult: ESRD, need for HD History of present illness: Ms. 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 Since partial cholecystectomy in 2023, she has had chronic diarrhea. Thus, she did not meet the entire day to avoid having diarrhea. She took her scheduled insulin and afterwards started to have changes in her vision and felt like she had to faint. called EMS, presented to the ED, and blood glucose was 57. Recheck was 99 after juice and crackers. She follows with PCP Dr. Ozuna, labor relations director in [place], and chef assistant Dr. Nelson. Currently on warfarin 2.5 mg p.o. every other day for her antiphospholipid antibody syndrome. Given that patient is ESRD, nephrology was consulted, with last dialysis session being Monday morning, 10/07. In ED, Hgb 8.9, K 2.9, BUN 24, Cr 3.0, glucose 57, PT 31, PTT 38, INR 3.2, troponin 4.6, BNP 3200 CXR: Skin markings, no signs of pulmonary edema or effusion. EKG: A-fib with HR 103. Given 25 cc of D50. 10/08/2024 : Patient seen and examined at bedside with family present. No acute overnight events. Patient has been on dialysis since March 2024 despite having transplant in 2019. Patient received dialysis today morning, and she does not seem to be volume overloaded. Potassium noted to be low and has been replenished by primary team. Labs and orders reviewed. cc:: cc: Randall Nguyễn MD Review of Systems Review of Systems Systems Reviewed: All systems reviewed, normal except as documented Past Medical History Past Medical History NEUROLOGIC: Positive Neurological Disorders, Cerebrovascular Accident, Transient Ischemic Attacks (TIA) and Peripheral Neuropathy CARDIAC: Positive Cardiac Disorders, Hypercholesterolemia, Congestive Heart Failure, Edema and Hypertension RESPIRATORY: Positive Chronic Obstructive Pulmonary Disease (COPD), Bronchitis and Pneumonia GASTROINTESTINAL: Positive Gastrointestinal Disorders, Diverticulitis and Obesity GENITOURINARY: Positive Genitourinary Disorders, Renal Disease, Kidney Stones and Dialysis REPRODUCTIVE: Positive Endometriosis and Previous Pregnancies; Negative Breast Cancer MUSCULOSKELETAL: Positive Musculoskeletal Disorders, Arthritis and Gout ENT: Positive Ear Infection ENDOCRINE: Positive Endocrine Disorders, Diabetes Mellitus Type 1, Diabetes Mellitus Type 2, Parathyroid Disease and Systemic Lupus Erythematosus HEMATOLOGIC: Positive Blood Disorders and Anemia PSYCHO/SOCIAL: Positive Depression and Anxiety OTHER HISTORY: Positive Hospitalization, Blood Transfusions, Organ Transplant, MRSA and Clostridium Difficile; Negative Blood Transfusion Reaction, Anesthesia Reactions or Breast Cancer Family History FAMILY HISTORY: Positive Family Cardiac Disorders; Negative Family Psychiatric Problems, Family Respiratory Disorders or Family Gastrointestinal Problems Surgical History SURGICAL: Positive Ear Surgery, Tonsillectomy, Abdominal Surgery, Bowel Surgery, Hysterectomy, Section and Organ Transplant Social History SMOKING STATUS: Never smoker Past Medical History Comments [facility] COMMENT: Past medical history: ? SLE ? Lupus nephritis ? ESRD on hemodialysis via right brachiobasilic fistula ? Insulin-dependent diabetes mellitus type 2 - Diabetic neuropathy ? Antiphospholipid antibody syndrome ? Gout ? Mitral stenosis ? Atrial fibrillation ? History of valley fever Medication list: ? Albuterol inhaler as needed ? Allopurinol 100 Mg p.o. daily ?Amiodarone 200 Mg p.o. daily ? Fluticasone nasal spray as needed ? Lasix 20 Mg p.o. twice daily ? Hydroxychloroquine 200 Mg p.o. twice daily ? Midodrine 10 Mg p.o. 3 times daily ? Pentoxifylline 400 Mg p.o. every afternoon - Posaconazole 400mg po Qday - Prednisone 5 mg po daily ? Pregabalin 100 Mg p.o. twice daily ? Tacrolimus 0.5 Mg p.o. daily ? Trelegy inhaler 1 puff p.o. at bedtime ? Warfarin 2.5 Mg p.o. every other day. Past surgical history: ? Tonsillectomy as a child ? Total abdominal hysterectomy secondary to menorrhagia 2002 - C5-7 cervical fusion 2010 ? Partial colectomy at [facility] 2015 ? Kidney transplant at [facility] 2019 - Partial cholecystectomy at [facility] April 2024 Allergies: Sulfa drugs - itching Augmentin - diarrhea Social history: Occupational History: Previously worked the [employer] program. Medically retired February 2012 Education Level: Graduated high school Marital Status: with 2 kids Tobacco use: Denies ETHO use: Denies Illicit drug use: Denies Social History Note: lives with . At baseline patient is wheelchair- bound but can stand with assistance. Exam Vital Signs Temp Pulse Resp BP Pulse Ox O2 Del Method 97.3 F 73 22 H 115/72 94 L Room Air 10/08/24 08:00 10/08/24 08:00 10/08/24 08:00 10/08/24 08:00 10/08/24 08:00 10/08/24 08:00 Narrative Exam General: AOx3, no acute distress, able to speak full sentences HEENT: NC/AT, mucous membranes moist, bilateral sclera anicteric Cardiovascular: regular rate and rhythm, S1/S2 present, no murmurs appreciated Pulmonary: clear to auscultation bilaterally, no rales/rhonchi/wheezes Abdominal: soft, non-tender, non-distended, no rebound/guarding, normal bowel sounds present Musculoskeletal: normal ROM, no peripheral edema Skin: cholecystostomy tube present Neuro: CN II-XII intact, no focal deficits Results Labs 10/08/24 05:42 10/08/24 05:42 Labs: Short CBC 10/07/24 10/08/24 Range/Units 20:55 05:42 WBC 9.1 7.5 (3.6-11.0) Thou/mm3 Hgb 8.9 L 9.1 L (12.0-16.0) g/dL Hct 30.3 L 30.6 L (36.0-46.0) % Plt Count 199 188 (140-440) Thou/mm3 BMP 10/07/24 10/08/24 20:55 05:42 Sodium 140 139 Potassium 2.9 L 3.2 L Chloride 98 98 Carbon Dioxide 24.8 22.2 BUN 24 H 25 H Creatinine 3.0 H 3.5 H D Glucose 57 L 70 L Calcium 8.3 8.5 Cardiac Enzymes 10/07/24 10/07/24 10/08/24 Range/Units 20:55 22:40 05:42 Troponin I 4.669 H* 5.042 H* D 6.464 H* D (0.0-0.045) ng/mL Liver Function 10/07/24 Range/Units 20:55 Total Bilirubin 0.7 (0.3-1.2) mg/dL AST 28 (0-34) U/L ALT 16 (10-49) U/L Alkaline Phosphatase 130 H (46-116) U/L Albumin 3.3 L (3.5-5.0) gm/dL Quality Measures Quality Measures none Medications Home Medications and Allergies Home Medications ?Medication ?Instructions ?Recorded ?Confirmed ?Type albuterol sulfate 90 mcg/actuation 2 puff inhalation Q4HR PRN 08/12/23 10/07/24 History aerosol inhaler Shortness Of Breath allopurinol 100 mg tablet 100 mg PO DAILY 08/12/23 10/07/24 History fluticasone fur. 100 mcg-umeclid 1 inh inhalation HS 08/12/23 10/07/24 History 62.5 mcg-vilant 25 mcg inhalat.powder (Trelegy Ellipta) fluticasone propionate 50 2 spray intranasal DAILY PRN 08/12/23 10/07/24 History mcg/actuation nasal Shortness Of Breath Or Wheezing spray,suspension hydroxychloroquine 200 mg tablet 200 mg PO BID 08/12/23 10/07/24 History pentoxifylline 400 mg 400 mg PO QPM 08/12/23 10/07/24 History tablet,extended release prednisone 5 mg tablet 5 mg PO DAILY 08/12/23 10/07/24 History cranberry extract 500 mg capsule 500 mg PO DAILY 09/28/23 10/07/24 History furosemide 20 mg tablet (Lasix) 20 mg PO BID 02/08/24 10/07/24 History multivitamin,tx-minerals 1 tab PO DAILY 02/08/24 10/07/24 History posaconazole 100 mg tablet,delayed 400 mg PO QDAY 02/08/24 10/07/24 History release (Noxafil) pregabalin 100 mg capsule 100 mg PO BID 02/08/24 10/07/24 History midodrine 10 mg tablet 10 mg PO 3XD 10/07/24 10/07/24 History Allergies Allergy/AdvReac Type Severity Reaction Status Date / Time cefaclor Allergy Mild LIPS SWELL Verified 02/08/24 10:18 UP AND EYES sulfamethoxazole Allergy Mild Itching Verified 02/08/24 10:18 trimethoprim Allergy Mild Itching Verified 02/08/24 10:18 amoxicillin Allergy Unknown Diarrhea Verified 02/08/24 10:18 clavulanic acid Allergy Unknown Diarrhea Verified 02/08/24 10:18 Sulfa (Sulfonamide Allergy Unknown Swelling Verified 02/08/24 10:18 Antibiotics) Visit Medications Acetaminophen (Acetaminophen 325 Mg Tablet) 650 mg PO Q6H PRN PRN Reason: Fever >101.5 Stop: 11/06/24 22:20 Albuterol (Albuterol Rt 2.5 Mg/0.5 Ml Nebu) 2.5 mg INH TID [facility] Stop: 11/07/24 07:44 Albuterol (Albuterol Rt 2.5 Mg/0.5 Ml Nebu) 2.5 mg INH Q4HRRT PRN PRN Reason: SOB or Wheeze Stop: 11/07/24 10:59 Allopurinol (Allopurinol 100 Mg Tablet) 100 mg PO QDAY [facility] Stop: 11/07/24 08:59 Amiodarone HCl (Amiodarone Hcl 200 Mg Tablet) 400 mg PO QDAY [facility] Stop: 11/07/24 08:59 Dextrose (Dextrose 50%-Water Inj 50 Ml Syringe) 25 ml IV Q15MIN PRN PRN Reason: BG 50-70 responsive npo pt Stop: 11/06/24 22:46 Dextrose (Dextrose 50%-Water Inj 50 Ml Syringe) 50 ml IV Q15MIN PRN PRN Reason: BG <50 OR BG <70 & pt unresponsive Stop: 11/06/24 22:46 Furosemide (Furosemide 20 Mg Tablet) 20 mg PO BID [facility] Stop: 11/07/24 08:59 Glucagon (Glucagon Inj 1 Mg Vial) 1 mg IM Q15MIN PRN PRN Reason: BG <70, and no IV access Hydroxychloroquine Sulfate (Hydroxychloroquine 200 Mg Tablet) 200 mg PO BID [facility] Stop: 10/15/24 08:59 Sodium Chloride (Ns) 1,000 mls @ 40 mls/hr IV .Q24H [facility] Stop: 10/08/24 20:59 Last Admin: 10/07/24 20:59 Dose: 40 mls/hr Midodrine (Midodrine 5 Mg Tablet) 10 mg PO TID [facility] Stop: 11/06/24 22:44 Last Admin: 10/08/24 05:39 Dose: 10 mg Home Medication- Please Speak With Patient Caregiver To Have Rx Brought To [facility] 400 mg PO DAILY [facility] Stop: 11/07/24 08:59 Pharmacy Consult (Pharmacy To Dose Warfarin) 1 each PO QDAY PRN PRN Reason: CONSULT Stop: 11/07/24 08:59 Prednisone (Prednisone 5 Mg Tablet) 5 mg PO QAM [facility] Stop: 11/07/24 08:59 Pregabalin (Pregabalin 25 Mg Capsule) 100 mg PO BID [facility] Stop: 11/07/24 08:59 Sodium Chloride (Sodium Chloride Rt Arlen 0.9% 3 Ml Nebu) 3 ml INH PRN PRN PRN Reason: SOLN Stop: 11/07/24 07:37 Discontinued Medications Amiodarone HCl (Amiodarone Hcl 200 Mg Tablet) 200 mg PO QDAY [facility] Stop: 11/07/24 08:59 Amiodarone HCl (Amiodarone Hcl 200 Mg Tablet) 400 mg PO 1XD [facility] Stop: 11/07/24 07:29 Dextrose (Dextrose 50%-Water Inj 50 Ml Syringe) 25 ml IV X1 ONE Stop: 10/07/24 20:51 Last Admin: 10/07/24 20:53 Dose: 25 ml Diltiazem HCl (Diltiazem Inj 5 Mg/Ml Vial 5 Ml) 10 mg IV X1 ONE Stop: 10/07/24 20:45 Last Admin: 10/07/24 20:54 Dose: Not Given Hydroxyzine HCl (Hydroxyzine Hcl 10 Mg Tablet) 10 mg PO X1 ONE Stop: 10/08/24 04:51 Last Admin: 10/08/24 05:47 Dose: Not Given Hydroxyzine HCl (Hydroxyzine Hcl 25 Mg Tablet) 12.5 mg PO X1 ONE Stop: 10/08/24 05:46 Last Admin: 10/08/24 05:39 Dose: 12.5 mg Sodium Chloride (Ns) 500 mls @ 999 mls/hr IV .Q31M ONE Stop: 10/07/24 21:10 Last Admin: 10/07/24 20:58 Dose: Not Given Lactated Ringer's (Lactated Ringers) 500 mls @ 999 mls/hr IV .Q31M ONE Stop: 10/07/24 21:15 Last Admin: 10/07/24 20:58 Dose: Not Given Magnesium Oxide (Magnesium Oxide 400 Mg Tablet) 400 mg PO X1 ONE Stop: 10/08/24 07:14 Potassium Chloride (Potassium Chloride 20 Meq Tabcr) 20 meq PO X1 ONE Stop: 10/07/24 22:53 Last Admin: 10/07/24 23:26 Dose: 20 meq Potassium Chloride (Potassium Chloride 20 Meq Tabcr) 40 meq PO X1 ONE Stop: 10/08/24 07:22 Assessment & Plan Plan Elma Vela is a 59-year-old female with medical history of SLE, lupus nephritis status post kidney transplant in 2019, ESRD (HD on M, F), antiphospholipid antibody syndrome (warfarin), A-fib (on amiodarone), 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 She follows with PCP Dr. Ozuna, labor relations director in [place], and chef assistant Dr. Nelson. Currently on warfarin 2.5 mg p.o. every other day for her antiphospholipid antibody syndrome. Given that patient is ESRD, nephrology was consulted, with last dialysis session being Monday morning, 10/07. #ESRD on hemodialysis , #Lupus nephritis status post kidney transplant in 2019 Patient received hemodialysis yesterday morning and labs stable, barring hypokalemia that has been repleted by primary team. She also does not appear to be volume overloaded so we will resume hemodialysis schedule of , so long as patient remains in house. Follows chef assistant, Dr. Nelson, in [place]. ? Renally dose medications ? Avoid nephrotoxic agents #Presyncope secondary to hypoglycemia- on IVF #Symptomatic hypoglycemia #HFpEF 55 to 60%) #Paroxysmal A-fib on amiodarone #Mitral stenosis #SLE #Antiphospholipid antibody syndrome, on warfarin #Type 2 diabetes mellitus, insulin-dependent #Gout #Valley fever #Hypokalemia ? Continue management per primary team ----- Plan discussed with attending physician Dr. Demetrice Hussein MD PGY-1 Internal Medicine Attending Provider Attestation/Addendum Patient seen and examined with resident physician Dr. Walker. Note reviewed, agree with findings and recommendations. Next HD is Monday. Thank you Varinder for allowing me to participate in the care of Ms. Vela. Plan of care discussed with her . Patient admitted with symptomatic hypoglycemia.
[2024-10-08 08:51] LABS: Folate > 24.00 ng/mL (>5.38); Vitamin B12 653 pg/mL (211-911)
[2024-10-08] MEDS: PREGABALIN 25 MG CAPSULE 100 MG PO (09:29)
[2024-10-08] MEDS: predniSONE 5 MG TABLET PO (09:30)
[2024-10-08] MEDS: Furosemide 20 MG TABLET PO (09:30)
[2024-10-08] MEDS: allopurinoL 100 MG TABLET PO (09:30)
[2024-10-08] MEDS: MAGNESIUM OXIDE 400 MG TABLET PO (09:31)
[2024-10-08] MEDS: AMIODARONE HCL 200 MG TABLET PO (10:02)
--- NOTE | 2024-10-08 10:56 | PC.SS ---
Patient is alert/oriented. Patient was admitted for elevated troponin levels. Patient needs assistance with ADL's. Spouse at bedside confirmed d/c plan is to return home. Patient has the following DME: wheelchair, INR machine (monitored by p.c.p.), walker, nebulizer, showerchair. Patient has hx: lupus and post kidney transplant 2020. Patient is on hemodialysis. Her o/p schedule is every M/F @ 1p.m. with Dr. Nelson- Nephrology. Location: [facility]. Patient follows with Cardiology and a [employer] Manager in [place]. PCP: Dr. Ozuna. Last appt. 2-3 weeks ago. , Shad, is alt medical decision maker. Family to provide transportation. Pharmacy: [facility].
[2024-10-08 11:26] LABS: Troponin I 7.493 ng/mL (0.0-0.045)
[2024-10-08] MEDS: POSACONAZOLE 100 MG PO (12:32)
[2024-10-08] MEDS: HYDROXYCHLOROQUINE 200 MG TABLET PO ×2 (12:32→20:20)
[2024-10-08] MEDS: HYDROcodone/APAP 5/325 TABLET 1 TAB PO (12:32)
[2024-10-08] MEDS: POTASSIUM CHLORIDE 20 mEq TABCR PO (12:32)
[2024-10-08] MEDS: TACROLIMUS 0.5 MG CAPSULE (NON-FORMULARY) PO (13:11)
--- NOTE | 2024-10-08 13:28 | ESPR_ITS ---
<Statement entered by Roya Briggs MD - 10/08/24 14:13> Patient was examined bedside this morning, we will hold her Lasix, she has 2 drainage 1 for partial cholecystectomy in April 2024 and another for draining her hematoma in her back. Pending echo ,pending cardiac recs. will hold Warfarin for now . Her dizziness improved. Continue to trend trops. I discussed with and supervised my co-resident involved in the care of this patient. I agree with the assessment and plan as documented above. Roya Briggs,PGY-3 Disclaimer: Despite multiple revisions, due to the dictation software being used, the document below may not be free of grammatical errors including phonetic/typographic errors. However, this does not deter from our commitment to providing health care in the patient's best interest in mind. Documentation for date of: 10/08/24 Subjective Subjective Interval history: Patient seen at bedside this morning. No overnight events. Patient states that she is feeling better today. Her troponins elevated to 6.464 picker machine operator was consulted who recommended to get echo this time and he will see the patient. Patient stated that she has 2 drainages 1 due to leakage of bile from partial cholecystectomy in April 2024 and [place] and the other 1 is draining a hematoma in her back, but she is not sure where was the hematoma. No other complaints at this time. No more episodes of hypoglycemia overnight. Exam Vital Signs Temp Pulse Resp BP Pulse Ox O2 Del Method 97.5 F 78 25 H 109/55 L 93 L Room Air 10/08/24 12:00 10/08/24 13:11 10/08/24 12:00 10/08/24 13:11 10/08/24 12:00 10/08/24 12:00 Narrative Exam General: A/O x3, no acute distress, ill-appearing Eyes: PERRL, EOMI. Anicteric, vision grossly intact. Ears: No ear pain, no ear discharge, Hearing grossly intact. Nose: No nasal discharge. Mouth/Throat: Dry mucous membranes, no redness, no lesions. Neck: Neck supple, non-tender, no cervical lymphadenopathy. Lungs: Clear TRACI to auscultation and percussion, No accessory muscle use. Cardio: Normal S1/S2, irregular rhythm, no murmurs, no JVD. Abdomen: Soft, non-tender, no palpable masses, peristalsis present, no guarding or rebound. Extremities: Symmetrical, no significant deformities, no peripheral edema , non-tender, peripheral pulses presents. Skin: No rashes, no lesions, warm to touch. Drainage in R side abdomen from partial syeda with visible drainage and hematoma with minimal drainage. Neuro: No focal neurological deficits. motor and sensory intact, Strength TRACI LE 4/5 and TRACI UE 5/5. Psych: Cooperative, appropriate mood and effect. Objective Labs 10/12/24 03:53 10/12/24 03:53 Labs: Laboratory Results - last 24 hr 10/07/24 10/07/24 10/08/24 20:55 22:40 05:42 WBC 9.1 7.5 RBC 3.13 L 3.17 L Hgb 8.9 L 9.1 L Hct 30.3 L 30.6 L MCV 97 97 MCH 28.4 28.7 MCHC 29.4 L 29.7 L RDW Std Deviation 65.3 H 66.3 H Plt Count 199 188 Neut % (Auto) 80 75 Lymph % (Auto) 12 15 [place] % (Auto) 7 8 Eos % (Auto) 1 1 Baso % (Auto) 1 1 Neut # (Auto) 7.3 5.6 Lymph # (Auto) 1.1 1.1 [place] # (Auto) 0.6 0.6 Eos # (Auto) 0.1 0.1 Baso # (Auto) 0.1 0.1 Immature Gran # (Auto) 0.04 H 0.03 H Absolute Nucleated RBC 0.02 H 0.03 H Immature Gran % 0 0 Nucleated RBC % 0 0 PT 31.1 H* 33.2 H* INR 3.2 H 3.3 H APTT 38.5 H Sodium 140 139 Potassium 2.9 L 3.2 L Chloride 98 98 Carbon Dioxide 24.8 22.2 Anion Gap 17 H 19 H BUN 24 H 25 H Creatinine 3.0 H 3.5 H D Estim Creat Clear Calc 18.5 L 15.9 L eGFR 18 L 15 L BUN/Creatinine Ratio 8 L 7 L Glucose 57 L [address] Glu mg/dL 65 L Hemoglobin A1c 3.9 L Calculated Osmolality 281 279 Calcium 8.3 8.5 Corrected Calcium 8.9 Magnesium 1.8 Total Bilirubin 0.7 AST 28 ALT 16 Alkaline Phosphatase 130 H Lactate Dehydrogenase 285 H Troponin I 4.669 H* 5.042 H* D 6.464 H* D B-Natriuretic Peptide > 3280 H* Total Protein 6.0 Albumin 3.3 L Globulin 2.7 Albumin/Globulin Ratio 1.2 Vitamin B12 653 Folate > 24.00 10/08/24 10:50 WBC RBC Hgb Hct MCV MCH MCHC RDW Std Deviation Plt Count Neut % (Auto) Lymph % (Auto) [place] % (Auto) Eos % (Auto) Baso % (Auto) Neut # (Auto) Lymph # (Auto) [place] # (Auto) Eos # (Auto) Baso # (Auto) Immature Gran # (Auto) Absolute Nucleated RBC Immature Gran % Nucleated RBC % PT INR APTT Sodium Potassium Chloride Carbon Dioxide Anion Gap BUN Creatinine Estim Creat Clear Calc eGFR BUN/Creatinine Ratio Glucose Estimated Ave Glu mg/dL Hemoglobin A1c Calculated Osmolality Calcium Corrected Calcium Magnesium Total Bilirubin AST ALT Alkaline Phosphatase Lactate Dehydrogenase Troponin I 7.493 H* D B-Natriuretic Peptide Total Protein Albumin Globulin Albumin/Globulin Ratio Vitamin B12 Folate Quality Measures Quality Measures none Assessment & Plan Assessment Current Active Medications: Generic Name Dose Route Start Last Admin Trade Name Freq PRN Reason Stop Dose Admin Acetaminophen 650 mg 10/07/24 22:21 Acetaminophen 325 Mg Tablet PO 11/06/24 22:20 Q6H PRN Fever >101.5 Hydrocodone Bitart/Acetaminophen 1 tab 10/08/24 12:14 10/08/24 12:32 Hydrocodone/Apap 5/325 Tablet PO 10/13/24 12:13 1 tab Q4HR PRN Administration PAIN SCALE 4-10(Mod-Sev Albuterol 2.5 mg 10/08/24 07:45 Albuterol Rt 2.5 Mg/0.5 Ml Nebu INH 11/07/24 07:44 TID WINSTON Albuterol 2.5 mg 10/08/24 07:38 Albuterol Rt 2.5 Mg/0.5 Ml Nebu INH 11/07/24 10:59 Q4HRRT PRN SOB or Wheeze Allopurinol 100 mg 10/08/24 09:00 10/08/24 09:30 Allopurinol 100 Mg Tablet PO 11/07/24 08:59 100 mg QDAY [facility] Administration Amiodarone HCl 200 mg 10/08/24 09:40 10/08/24 10:02 Amiodarone Hcl 200 Mg Tablet PO 11/07/24 09:39 200 mg QDAY [facility] Administration Atorvastatin Calcium 80 mg 10/08/24 21:00 Atorvastatin Calcium 20 Mg Tablet PO 11/07/24 20:59 HS WINSTON Posaconazole 100 Mg 0 ea 10/08/24 11:30 10/08/24 12:32 Delayed Release PO 11/07/24 11:29 4 tablet Tablet DAILY [facility] Administration Dextrose 25 ml 10/07/24 22:47 Dextrose 50%-Water Inj 50 Ml Syringe IV 11/06/24 22:46 Q15MIN PRN BG 50-70 responsive npo pt Dextrose 50 ml 10/07/24 22:47 Dextrose 50%-Water Inj 50 Ml Syringe IV 11/06/24 22:46 Q15MIN PRN BG <50 OR BG <70 & pt unresponsive Furosemide 20 mg 10/08/24 09:00 10/08/24 09:30 Furosemide 20 Mg Tablet PO 11/07/24 08:59 20 mg BID [facility] Administration Glucagon 1 mg 10/07/24 22:47 Glucagon Inj 1 Mg Vial IM Q15MIN PRN BG <70, and no IV access Hydroxychloroquine Sulfate 200 mg 10/08/24 09:00 10/08/24 12:32 Hydroxychloroquine 200 Mg Tablet PO 10/15/24 08:59 200 mg BID [facility] Administration Sodium Chloride 1,000 mls @ 40 mls/hr 10/07/24 21:00 10/07/24 20:59 Ns IV 10/08/24 20:59 40 mls/hr .Q24H [facility] Administration Midodrine 10 mg 10/07/24 22:45 10/08/24 13:11 Midodrine 5 Mg Tablet PO 11/06/24 22:44 10 mg TID [facility] Administration Pharmacy Consult 1 each 10/08/24 09:00 Pharmacy To Dose Warfarin PO 11/07/24 08:59 QDAY PRN CONSULT Prednisone 5 mg 10/08/24 09:00 10/08/24 09:30 Prednisone 5 Mg Tablet PO 11/07/24 08:59 5 mg QAM [facility] Administration Pregabalin 100 mg 10/08/24 21:00 Pregabalin 50 Mg Capsule PO 11/07/24 08:59 BID [facility] Sodium Chloride 3 ml 10/08/24 07:38 Sodium Chloride Rt Arlen 0.9% 3 Ml Nebu INH 11/07/24 07:37 PRN PRN SOLN Tacrolimus 0.5 mg 10/08/24 13:00 10/08/24 13:11 Tacrolimus 0.5 Mg Capsule (Non-Formulary) PO 11/07/24 12:59 0.5 mg TUTHSA WINSTON Administration Plan 59-year-old female with past medical SLE, lupus nephritis s/p kidney transplant 2019, ESRD (HD on /), IDDM, antiphospholipid antibody syndrome (on warfarin), gout, mitral stenosis, atrial fibrillation (on Amio), valley fever (on posaconazole), and recent partial cholecystectomy on April [address] was admitted to the hospital on 10/08/2024 due to presyncope in the setting of hypoglycemia and NSTEMI. #Presyncope likely secondary to #Hypoglycemia in the setting of insulin use and poor oral intake #IDDM ? Patient came in with complaints of almost passing out and feeling that everything went black after she took her scheduled dose of insulin while not having good oral intake yesterday after dialysis. ? A1c 3.9 Plan: ? Hypoglycemic protocol ordered ? Blood glucose checks - Hold off on insulin for now ? Will continue to monitor #NSTEMI ?Patient did not coming with any chest pains, shortness of breath, or numbness ? Troponins elevated to 6.464 ?EKG that shows some ST depressions in lateral leads. ?Patient's INR was therapeutic at 3.3 Plan: - Started atorvastatin 80 HS ? Echo ordered -trend troponins ? Will wait on cardiology recommendations to start anticoagulation ? Cardiology consulted, appreciate recommendations ? Will continue to monitor #Hx of HFpEF (EF 55 to 60%) #Hx of atrial fibrillation (on amiodarone) #Hx of mitral stenosis ? Patient takes amiodarone 200 mg daily ?Echo on 01/2024 showed EF of 55 to 60% with moderate MS ? Patient's EKG showed A-fib with RVR as well as some ST depressions in lateral leads ? Patient appears to be rate controlled at this time ? Patient does not have any shortness of breath for lower extremity swelling and does not appear to be any acute heart failure exacerbation at this time Plan: ? Echo ordered ?Continue amiodarone 200 mg daily - Will continue to monitor #Hx of ESRD (HD on M/F) - Patient is still able to produce some urine - Cr 3.5 and BUN 25 today Plan: - Gentle IV fluids ? Avoid nephrotoxic agents ? Continue dose medication ? Nephrology consulted, appreciate recommendations #Hx of SLE #Hx of lupus nephritis s/p kidney transplant (2019) #Hx of antiphospholipid antibody syndrome (on Coumadin) #Hx of gout ? Patient is taking allopurinol, hydroxychloroquine, tacrolimus, and prednisone. ? INR 3.3 today therefore holding warfarin for now ? Will continue patient's allopurinol, hydroxychloroquine, tacrolimus, and prednisone. #Hx of valley fever ?Continue patient's posaconazole Disposition: Patient pending Cardio recs, hold warfarin today. Diet: Renal GI prophylaxis: not indicated DVT prophylaxis: SCDs Code: Full code Case disclosed with Attending Dr. Guzmán and My senior Dr. Briggs PGY3. Santos Duffy PGY1 Attending Provider Attestation/Addendum I have examined the patient, reviewed labs and imaging findings, discussed the case with the resident(s), and reviewed entered orders. I agree with the plan of care as outlined in this note, with these additional summaries/recommendations: Patient seen at bedside. Patient was admitted overnight for presyncopal episode secondary to hypoglycemia. Today morning fasting blood sugar 70. A1c 3.9%. Discussed with patient and family that patient no longer requires insulin or oral hypoglycemic agents. We will continue to monitor blood sugars closely and obtain PT consult. Patient has cardiac history of HFpEF, paroxysmal atrial fibrillation, mitral stenosis. Patient was found to have elevated troponins on admission likely NSTEMI type II versus type I. Cardiology consulted. Start high intensity statin. Patient takes warfarin for history of antiphospholipid syndrome and INR supratherapeutic on admission with level 3.3. Will hold off on additional anticoagulation for now. Patient has history of ESRD on hemodialysis Monday and Monday. ESRD secondary to lupus nephritis. Patient had renal transplant in the past that was rejected. Continue home immunosuppressants and SLE medications. Patient currently takes tacrolimus 3 times a week. Continue antifungal for history of valley fever. Patient and family updated at bedside and in agreement. Repeat hematology and chemistry panel in AM. Dr. Guzmán
--- NOTE | 2024-10-08 14:10 | ESCONSULT_ITS ---
<Statement entered by Sarath Waters MD - 10/10/24 11:34> I personally examined the patient in the telemetry evaluated the patient with PGY 2 Dr Clifford patient is complex medical problems including moderate mitral stenosis came to the hospital acute weakness shortness of breath no chest pain has significant troponin elevation suggest acute non-ST segment elevation myocardial infarction patient is already on warfarin INR is high we will hold off the warfarin for now once the INR is below to anticoagulate the patient agree with the treatment plan recommendation as documented by PGY 2 Dr Clifford will continue to monitor the patient closely HPI Data of Consult Requesting Physician: Varinder Guzmán MD Admitting Provider: Randall Nguyễn MD Attending Provider: Varinder Guzmán MD Primary Care Provider: Ralf Ozuna MD Consult Narrative Reason for consult: syncopal episode History of present illness: Ms. Vela is a 59-year-old female with past medical history significant for hypertension, hyperlipidemia, type 2 diabetes, post kidney transplant on dialysis Mondays and Fridays, lupus, antiphospholipid syndrome, mitral stenosis and stroke on warfarin, multiple surgeries including a cholecystectomy last year who presented to the ED with lightheadedness. Patient's family states that her blood sugar was 92 after dinner, and received 5 units of insulin lispro. Shortly after, patient reported feeling she was about to faint. Despite gatorade, patient was unable to get a pulse ox or BP checked, and came to the ED. Patient denies any chest pain, palpitations, or SOB. Patient also has been complaining of vertigo and dizziness for the last week when she gets up from bed. Patient per family, her PCP recommends giving insulin 5 units lispro in the morning and evening anytime blood sugars above 90. Of note, patient did not eat breakfast yesterday morning prior to dialysis. Cardiology was consulted for further management for her syncope and elevated troponin most likely secondary to demand ischemia and supratherapeutic INR. Patient recently got her IR tube exchanged on Sep 03 & , and next one is due on Oct 15 at [facility]. Last dose of her warfarin was Monday morning of 2.5 mg. Home Meds: Patient takes albuterol inhaler as needed, allopurinol, amiodarone 40 mg once daily, Lasix 20 mg twice daily, hydroxychloroquine 400 mg twice daily, midodrine 10 mg p.o. 3 times a day, oxycodone half a tablet every 6 as needed for pain, pentoxifylline 400 mg p.o. every afternoon, Noxafil 400 mg p.o. daily, prednisone 5 mg p.o. daily, pregabalin 100 mg twice daily, tacrolimus 0.5 mg p.o. daily, and warfarin 2.5 mg every other day. cc:: cc: Varinder Guzmán MD Review of Systems Review of Systems Systems Reviewed: All systems reviewed, normal except as documented Exam Vital Signs Temp Pulse Resp BP Pulse Ox O2 Del Method 97.5 F 78 25 H 109/55 L 93 L Room Air 10/08/24 12:00 10/08/24 13:11 10/08/24 12:00 10/08/24 13:11 10/08/24 12:00 10/08/24 12:00 Narrative Exam General Appearance: Pt in mild acute distress, ill-appearing laying in bed. Otherwise present at bedside. HEENT: NC/AT, no scleral icterus, no conjunctival pallor, dry MM Lungs: CTAB, no wheezes or crackles appreciated CVS: Irregularly, irregular rhythm. S1/S2 heard, no murmurs or rubs appreciated ABD: Soft, non-tender, non-distended, BS + in all 4 quadrants EXT: no deformity/edema/lesions/cyanosis/clubbing, radial pulses 2+ BL, DP pulses 2 + BL SKIN: Skin exam normal without any rashes except for drainage noted in right side of abdomen from partial cholecystectomy. Neuro: A&O x 3. No gross neurological deficits. Able to move all 4 extremities. Psych: Appropriate mood and affect Results Labs 10/08/24 05:42 10/08/24 05:42 Labs: Short CBC 10/07/24 10/08/24 Range/Units 20:55 05:42 WBC 9.1 7.5 (3.6-11.0) Thou/mm3 Hgb 8.9 L 9.1 L (12.0-16.0) g/dL Hct 30.3 L 30.6 L (36.0-46.0) % Plt Count 199 188 (140-440) Thou/mm3 BMP 10/07/24 10/08/24 20:55 05:42 Sodium 140 139 Potassium 2.9 L 3.2 L Chloride 98 98 Carbon Dioxide 24.8 22.2 BUN 24 H 25 H Creatinine 3.0 H 3.5 H D Glucose 57 L 70 L Calcium 8.3 8.5 Cardiac Enzymes 10/07/24 10/07/24 10/08/24 Range/Units 20:55 22:40 05:42 Troponin I 4.669 H* 5.042 H* D 6.464 H* D (0.0-0.045) ng/mL 10/08/24 Range/Units 10:50 Troponin I 7.493 H* D (0.0-0.045) ng/mL Liver Function 10/07/24 Range/Units 20:55 Total Bilirubin 0.7 (0.3-1.2) mg/dL AST 28 (0-34) U/L ALT 16 (10-49) U/L Alkaline Phosphatase 130 H (46-116) U/L Albumin 3.3 L (3.5-5.0) gm/dL Quality Measures Quality Measures none Medications Home Medications and Allergies Home Medications ?Medication ?Instructions ?Recorded ?Confirmed ?Type albuterol sulfate 90 mcg/actuation 2 puff inhalation Q4HR PRN 08/12/23 10/07/24 History aerosol inhaler Shortness Of Breath allopurinol 100 mg tablet 100 mg PO DAILY 08/12/23 10/07/24 History fluticasone fur. 100 mcg-umeclid 1 inh inhalation HS 08/12/23 10/07/24 History 62.5 mcg-vilant 25 mcg inhalat.powder (Trelegy Ellipta) fluticasone propionate 50 2 spray intranasal DAILY PRN 08/12/23 10/07/24 History mcg/actuation nasal Shortness Of Breath Or Wheezing spray,suspension hydroxychloroquine 200 mg tablet 200 mg PO BID 08/12/23 10/07/24 History pentoxifylline 400 mg 400 mg PO QPM 08/12/23 10/07/24 History tablet,extended release prednisone 5 mg tablet 5 mg PO DAILY 08/12/23 10/07/24 History cranberry extract 500 mg capsule 500 mg PO DAILY 09/28/23 10/07/24 History furosemide 20 mg tablet (Lasix) 20 mg PO BID 02/08/24 10/07/24 History multivitamin,tx-minerals 1 tab PO DAILY 02/08/24 10/07/24 History posaconazole 100 mg tablet,delayed 400 mg PO QDAY 02/08/24 10/07/24 History release (Noxafil) pregabalin 100 mg capsule 100 mg PO BID 02/08/24 10/07/24 History midodrine 10 mg tablet 10 mg PO 3XD 10/07/24 10/07/24 History Allergies Allergy/AdvReac Type Severity Reaction Status Date / Time cefaclor Allergy Mild LIPS SWELL Verified 02/08/24 10:18 UP AND EYES sulfamethoxazole Allergy Mild Itching Verified 02/08/24 10:18 trimethoprim Allergy Mild Itching Verified 02/08/24 10:18 amoxicillin Allergy Unknown Diarrhea Verified 02/08/24 10:18 clavulanic acid Allergy Unknown Diarrhea Verified 02/08/24 10:18 Sulfa (Sulfonamide Allergy Unknown Swelling Verified 02/08/24 10:18 Antibiotics) Visit Medications Acetaminophen (Acetaminophen 325 Mg Tablet) 650 mg PO Q6H PRN PRN Reason: Fever >101.5 Stop: 11/06/24 22:20 Hydrocodone Bitart/Acetaminophen (Hydrocodone/Apap 5/325 Tablet) 1 tab PO Q4HR PRN PRN Reason: PAIN SCALE 4-10(Mod-Sev Stop: 10/13/24 12:13 Last Admin: 10/08/24 12:32 Dose: 1 tab Albuterol (Albuterol Rt 2.5 Mg/0.5 Ml Nebu) 2.5 mg INH TID [facility] Stop: 11/07/24 07:44 Albuterol (Albuterol Rt 2.5 Mg/0.5 Ml Nebu) 2.5 mg INH Q4HRRT PRN PRN Reason: SOB or Wheeze Stop: 11/07/24 10:59 Allopurinol (Allopurinol 100 Mg Tablet) 100 mg PO QDAY [facility] Stop: 11/07/24 08:59 Last Admin: 10/08/24 09:30 Dose: 100 mg Amiodarone HCl (Amiodarone Hcl 200 Mg Tablet) 200 mg PO QDAY [facility] Stop: 11/07/24 09:39 Last Admin: 10/08/24 10:02 Dose: 200 mg Atorvastatin Calcium (Atorvastatin Calcium 20 Mg Tablet) 80 mg PO HS [facility] Stop: 11/07/24 20:59 Posaconazole 100 Mg Delayed Release Tablet 0 ea PO DAILY [facility] Stop: 11/07/24 11:29 Last Admin: 10/08/24 12:32 Dose: 4 tablet Dextrose (Dextrose 50%-Water Inj 50 Ml Syringe) 25 ml IV Q15MIN PRN PRN Reason: BG 50-70 responsive npo pt Stop: 11/06/24 22:46 Dextrose (Dextrose 50%-Water Inj 50 Ml Syringe) 50 ml IV Q15MIN PRN PRN Reason: BG <50 OR BG <70 & pt unresponsive Stop: 11/06/24 22:46 Furosemide (Furosemide 20 Mg Tablet) 20 mg PO BID [facility] Stop: 11/07/24 08:59 Last Admin: 10/08/24 09:30 Dose: 20 mg Glucagon (Glucagon Inj 1 Mg Vial) 1 mg IM Q15MIN PRN PRN Reason: BG <70, and no IV access Hydroxychloroquine Sulfate (Hydroxychloroquine 200 Mg Tablet) 200 mg PO BID [place] Stop: 10/15/24 08:59 Last Admin: 10/08/24 12:32 Dose: 200 mg Sodium Chloride (Ns) 1,000 mls @ 40 mls/hr IV .Q24H [facility] Stop: 10/08/24 20:59 Last Admin: 10/07/24 20:59 Dose: 40 mls/hr Midodrine (Midodrine 5 Mg Tablet) 10 mg PO TID [facility] Stop: 11/06/24 22:44 Last Admin: 10/08/24 13:11 Dose: 10 mg Pharmacy Consult (Pharmacy To Dose Warfarin) 1 each PO QDAY PRN PRN Reason: CONSULT Stop: 11/07/24 08:59 Prednisone (Prednisone 5 Mg Tablet) 5 mg PO QAM [facility] Stop: 11/07/24 08:59 Last Admin: 10/08/24 09:30 Dose: 5 mg Pregabalin (Pregabalin 50 Mg Capsule) 100 mg PO BID [facility] Stop: 11/07/24 08:59 Sodium Chloride (Sodium Chloride Rt Arlen 0.9% 3 Ml Nebu) 3 ml INH PRN PRN PRN Reason: SOLN Stop: 11/07/24 07:37 Tacrolimus (Tacrolimus 0.5 Mg Capsule (Non-Formulary)) 0.5 mg PO TUTHSA [facility] Stop: 11/07/24 12:59 Last Admin: 10/08/24 13:11 Dose: 0.5 mg Discontinued Medications Amiodarone HCl (Amiodarone Hcl 200 Mg Tablet) 200 mg PO QDAY [facility] Stop: 11/07/24 08:59 Amiodarone HCl (Amiodarone Hcl 200 Mg Tablet) 400 mg PO 1XD [facility] Stop: 11/07/24 07:29 Amiodarone HCl (Amiodarone Hcl 200 Mg Tablet) 400 mg PO QDAY [facility] Stop: 11/07/24 08:59 Last Admin: 10/08/24 09:42 Dose: Not Given Aspirin (Aspirin Ec 81 Mg Tabec) 81 mg PO QDAY [facility] Stop: 11/07/24 10:29 Dextrose (Dextrose 50%-Water Inj 50 Ml Syringe) 25 ml IV X1 ONE Stop: 10/07/24 20:51 Last Admin: 10/07/24 20:53 Dose: 25 ml Diltiazem HCl (Diltiazem Inj 5 Mg/Ml Vial 5 Ml) 10 mg IV X1 ONE Stop: 10/07/24 20:45 Last Admin: 10/07/24 20:54 Dose: Not Given Hydroxyzine HCl (Hydroxyzine Hcl 10 Mg Tablet) 10 mg PO X1 ONE Stop: 10/08/24 04:51 Last Admin: 10/08/24 05:47 Dose: Not Given Hydroxyzine HCl (Hydroxyzine Hcl 25 Mg Tablet) 12.5 mg PO X1 ONE Stop: 10/08/24 05:46 Last Admin: 10/08/24 05:39 Dose: 12.5 mg Sodium Chloride (Ns) 500 mls @ 999 mls/hr IV .Q31M ONE Stop: 10/07/24 21:10 Last Admin: 10/07/24 20:58 Dose: Not Given Lactated Ringer's (Lactated Ringers) 500 mls @ 999 mls/hr IV .Q31M ONE Stop: 10/07/24 21:15 Last Admin: 10/07/24 20:58 Dose: Not Given Magnesium Oxide (Magnesium Oxide 400 Mg Tablet) 400 mg PO X1 ONE Stop: 10/08/24 09:31 Last Admin: 10/08/24 09:31 Dose: 400 mg Potassium Chloride (Potassium Chloride 20 Meq Tabcr) 20 meq PO X1 ONE Stop: 10/07/24 22:53 Last Admin: 10/07/24 23:26 Dose: 20 meq Potassium Chloride (Potassium Chloride 20 Meq Tabcr) 40 meq PO X1 ONE Stop: 10/08/24 07:22 Last Admin: 10/08/24 10:03 Dose: Not Given Potassium Chloride (Potassium Chloride 20 Meq Tabcr) 20 meq PO X1 ONE Stop: 10/08/24 10:29 Last Admin: 10/08/24 12:32 Dose: 20 meq Pregabalin (Pregabalin 25 Mg Capsule) 100 mg PO BID [facility] Stop: 11/07/24 08:59 Last Admin: 10/08/24 09:29 Dose: 100 mg Assessment & Plan Plan Ms. Vela is a 59-year-old female with past medical history significant for hypertension, hyperlipidemia, type 2 diabetes, post kidney transplant on dialysis Mondays and Fridays, lupus, antiphospholipid syndrome, mitral stenosis and stroke on warfarin, multiple surgeries including a cholecystectomy last year who presented to the ED with a syncopal episode. Cardiology was consulted for further management for her syncope and elevated troponin most likely secondary to demand ischemia and supratherapeutic INR. #Elevated Troponin most likely in the setting of demand ischemia #Supratherapeutic INR #Moderate mitral stenosis secondary to heavy calcification, mitral annulus #HFmEF, 45% #Peripheral arterial occlusive disease and peripheral neuropathy. #Antiphospholipid syndrome, on Coumadin Patient presented with an episode of syncopal episode status post insulin administration. Patient's vital signs have been stable except for elevated heart rate on initial presentation. Blood sugar in ER was 69 status post 5u Lispro. Patient's troponin peaked at 7.493 and is downtrending. BNP elevated at 3000 180. INR today was 3.3. EKG continues to show A-fib with no ST-T changes from previous EKG. Echo showed mild hypokinesis of inferior lateral and posterior wall, EF 45%, severe LA dilatation, severe degenerative mitral valve annulus calcification with moderate MV stenosis. EF decreased from 55% to 45% since last January 2024. On tele monitor, patient's HR is well controlled, and goes in-an-out of A-fib. -Will follow-up with a.m. coagulation -Keep potassium above 4 and magnesium above 2 -Continue to hold warfarin dose as INR is supratherapuetic -Will start heparin gtt once INR is < 2 -Possible plan for angiogram on /Monday depending on INR #SLE with hx of kidney transplant #Status post renal transplant on dialysis M&F #Diabetes mellitus?well-controlled Rest of problems as per primary team Patient's plan and care discussed with my attending, Dr. Jt Clifford MD PGY-2
[2024-10-08] MEDS: ATORVASTATIN CALCIUM 20 MG TABLET 80 MG PO (20:20)
[2024-10-08] MEDS: PREGABALIN 50 MG CAPSULE 100 MG PO (20:20)
--- NOTE | 2024-10-08 21:09 | PC.NURSE ---
210- notfied provider Aremanda of patient blood glucose of 79 after patient finished eating and BP 120/70, per MD to recheck blood glucose and blood pressure in two hours and call back , hold midodrine med.
[2024-10-09] VITALS (48 sets, daily range): BP systolic 73–131; BP diastolic 16–86; PULSE 62–88; RESP 12–30; TEMP 36.4–39.1; O2SAT 60–100
[2024-10-09] MEDS: HYDROcodone/APAP 5/325 TABLET 1 TAB PO ×2 (05:10→21:11)
[2024-10-09] MEDS: MIDODRINE 5 MG TABLET 10 MG PO ×2 (05:11→21:10)
[2024-10-09 05:28] LABS: Basophils # (Auto) 0.1 Thou/mm3 (0.0-0.2); Basophils % (Auto) 1 % (0-2.5); Eosinophils # (Auto) 0.1 Thou/mm3 (0.0-0.5); Eosinophils % (Auto) 1 % (0-10); Hematocrit 34.6 % (36.0-46.0); Hemoglobin 10.1 g/dL (12.0-16.0); Immature Granulocytes % (Auto) 1 % (0-0); Immature Granulocytes Auto 0.04 Thou/mm3 (0.00-0.00); Lymphocytes # (Auto) 1.2 Thou/mm3 (1.0-4.8); Lymphocytes % (Auto) 16 % (10-50); Mean Corpuscular HGB Conc 29.2 g/dl (31.0-37.0); Mean Corpuscular Hemoglobin 28.6 pg (25.0-35.0); Mean Corpuscular Volume 98 fL (80-100); Monocytes # (Auto) 0.5 Thou/mm3 (0.0-0.8); Monocytes % (Auto) 6 % (0-12); Neutrophils # (Auto) 5.7 Thou/mm3 (1.8-7.7); Neutrophils % (Auto) 76 % (37-80); Nucleated Red Blood Cell % 0 /100 WBC (0); Platelet Count 186 Thou/mm3 (140-440); RDW Standard Deviation 67.2 fL (36.4-46.3); Red Blood Count 3.53 Miln/mm3 (4.00-5.20); White Blood Count 7.6 Thou/mm3 (3.6-11.0)
[2024-10-09 05:47] LABS: INR 2.7 (0.9-1.3); Partial Thromboplastin Time 38.7 Seconds (22.0-36.0); Prothrombin Time 27.7 Seconds (9.0-12.2)
[2024-10-09 06:47] LABS: Alanine Aminotransferase 20 U/L (10-49); Albumin, Serum 3.5 gm/dL (3.5-5.0); Albumin/Globulin Ratio 1.2 (1.2-2.2); Alkaline Phosphatase 139 U/L (46-116); Anion Gap 18 (7-16); Aspartate Amino Transferase 44 U/L (0-34); BUN/Creatinine Ratio 7 Ratio (12-20); Bilirubin,Total 0.7 mg/dL (0.3-1.2); Blood Urea Nitrogen 32 mg/dL (9-23); Calcium 8.9 mg/dL (8.3-10.6); Calcium (Corrected) 9.3 mg/dL (8.5-10.1); Carbon Dioxide 20.5 mMol/L (20.0-31.0); Chloride 98 mMol/L (98-107); Creatinine (Component) 4.4 mg/dL (0.6-1.3); Estimated Creatinine Clearance 12.6 mL/min (>60); Globulin 2.9 gm/dL (2.3-3.5); Glucose 67 mg/dL (74-106); Magnesium 2.1 mg/dL (1.6-2.6); Osmolality,Calculated 276 (275-295); Phosphorous 7.6 mg/dL (2.4-5.1); Potassium 4.3 mMol/L (3.4-5.1); Sodium 136 mMol/L (136-145); Total Protein 6.4 gm/dL (5.7-8.2); eGFR 11 See Note
[2024-10-09 07:15] LABS: Troponin I 6.157 ng/mL (0.0-0.045)
[2024-10-09] MEDS: predniSONE 5 MG TABLET PO (09:00)
[2024-10-09] MEDS: AMIODARONE HCL 200 MG TABLET PO (09:00)
[2024-10-09] MEDS: PREGABALIN 50 MG CAPSULE 100 MG PO (09:00)
[2024-10-09] MEDS: allopurinoL 100 MG TABLET PO (09:00)
[2024-10-09] MEDS: HYDROXYCHLOROQUINE 200 MG TABLET PO ×2 (09:00→21:10)
[2024-10-09] MEDS: POSACONAZOLE 100 MG PO (09:01)
--- NOTE | 2024-10-09 09:25 | ESPR_ITS ---
Documentation for date of: 10/09/24 Subjective Subjective Interval history: Ms. 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 Since partial cholecystectomy in 2023, she has had chronic diarrhea. Thus, she did not meet the entire day to avoid having diarrhea. She took her scheduled insulin and afterwards started to have changes in her vision and felt like she had to faint. called EMS, presented to the ED, and blood glucose was 57. Recheck was 99 after juice and crackers. She follows with PCP Dr. Ozuna, architectural project manager in [place], and cost estimator Dr. Nelson. Currently on warfarin 2.5 mg p.o. every other day for her antiphospholipid antibody syndrome. Given that patient is ESRD, nephrology was consulted, with last dialysis session being Monday morning, 10/07. In ED, Hgb 8.9, K 2.9, BUN 24, Cr 3.0, glucose 57, PT 31, PTT 38, INR 3.2, troponin 4.6, BNP 3200 CXR: Skin markings, no signs of pulmonary edema or effusion. EKG: A-fib with HR 103. Given 25 cc of D50. 10/08: Patient seen and examined at bedside with family present. No acute overnight events. Patient has been on dialysis since March 2024 despite having transplant in 2019. Patient received dialysis today morning, and she does not seem to be volume overloaded. Potassium noted to be low and has been replenished by primary team. Labs and orders reviewed. 10/09: Patient seen and examined at bedside with family present. No acute overnight events. Cardiology consulted for further management of elevated troponins, with possible angiogram on or Monday, depending on INR. Echo showed mild hypokinesis of inferior lateral and posterior khan. EF 45%. RVSP 73 mmHg with mild RV dilatation. Severe left atrial dilatation seen. Severe degenerative mitral valve annulus calcification with moderate stenosis. Moderate MR, moderate TR. Renal function tolerable and can continue M, F regimen so long as patient remains in house. Exam Vital Signs Temp Pulse Resp BP Pulse Ox O2 Del Method 97.7 F 75 30 H 106/67 100 Room Air 10/09/24 08:00 10/09/24 09:00 10/09/24 08:00 10/09/24 09:00 10/09/24 08:00 10/09/24 08:00 Narrative Exam General: frail and weak appearing, AOx3, no acute distress, able to speak full sentences HEENT: NC/AT, mucous membranes moist, bilateral sclera anicteric Cardiovascular: irregular rhythm, S1/S2 present, no murmurs appreciated Pulmonary: clear to auscultation bilaterally, no rales/rhonchi/wheezes Abdominal: soft, non-tender, non-distended, no rebound/guarding, normal bowel sounds present Musculoskeletal: normal ROM, no peripheral edema Skin: cholecystostomy tube present Neuro: CN II-XII intact, no focal deficits Objective Labs 10/10/24 18:28 10/10/24 17:29 Labs: Laboratory Results - last 24 hr 10/08/24 10/08/24 10/08/24 10:50 15:28 21:38 WBC RBC Hgb Hct MCV MCH MCHC RDW Std Deviation Plt Count Neut % (Auto) Lymph % (Auto) [place] % (Auto) Eos % (Auto) Baso % (Auto) Neut # (Auto) Lymph # (Auto) [place] # (Auto) Eos # (Auto) Baso # (Auto) Immature Gran # (Auto) Absolute Nucleated RBC Immature Gran % Nucleated RBC % PT INR APTT Sodium Potassium Chloride Carbon Dioxide Anion Gap BUN Creatinine Estim Creat Clear Calc eGFR BUN/Creatinine Ratio Glucose Calculated Osmolality Calcium Corrected Calcium Phosphorus Magnesium Total Bilirubin AST ALT Alkaline Phosphatase Troponin I 7.493 H* D 7.170 H* D 6.110 H* D Total Protein Albumin Globulin Albumin/Globulin Ratio 10/09/24 04:50 WBC 7.6 RBC 3.53 L Hgb 10.1 L Hct 34.6 L MCV 98 MCH 28.6 MCHC 29.2 L RDW Std Deviation 67.2 H Plt Count 186 Neut % (Auto) 76 Lymph % (Auto) 16 [place] % (Auto) 6 Eos % (Auto) 1 Baso % (Auto) 1 Neut # (Auto) 5.7 Lymph # (Auto) 1.2 [place] # (Auto) 0.5 Eos # (Auto) 0.1 Baso # (Auto) 0.1 Immature Gran # (Auto) 0.04 H Absolute Nucleated RBC 0.00 Immature Gran % 1 H Nucleated RBC % 0 PT 27.7 H D INR 2.7 H APTT 38.7 H Sodium 136 Potassium 4.3 D Chloride 98 Carbon Dioxide 20.5 Anion Gap 18 H BUN 32 H Creatinine 4.4 H* D Estim Creat Clear Calc 12.6 L eGFR 11 L* BUN/Creatinine Ratio 7 L Glucose 67 L Calculated Osmolality 276 Calcium 8.9 Corrected Calcium 9.3 Phosphorus 7.6 H Magnesium 2.1 Total Bilirubin 0.7 AST 44 H ALT 20 Alkaline Phosphatase 139 H Troponin I 6.157 H* Total Protein 6.4 Albumin 3.5 Globulin 2.9 Albumin/Globulin Ratio 1.2 Quality Measures Quality Measures none Assessment & Plan Assessment Current Active Medications: Generic Name Dose Route Start Last Admin Trade Name Freq PRN Reason Stop Dose Admin Acetaminophen 650 mg 10/07/24 22:21 Acetaminophen 325 Mg Tablet PO 11/06/24 22:20 Q6H PRN Fever >101.5 Hydrocodone Bitart/Acetaminophen 1 tab 10/08/24 12:14 10/09/24 05:10 Hydrocodone/Apap 5/325 Tablet PO 10/13/24 12:13 1 tab Q4HR PRN Administration PAIN SCALE 4-10(Mod-Sev Albuterol 2.5 mg 10/08/24 07:45 Albuterol Rt 2.5 Mg/0.5 Ml Nebu INH 11/07/24 07:44 TID WINSTON Albuterol 2.5 mg 10/08/24 07:38 Albuterol Rt 2.5 Mg/0.5 Ml Nebu INH 11/07/24 10:59 Q4HRRT PRN SOB or Wheeze Allopurinol 100 mg 10/08/24 09:00 10/09/24 09:00 Allopurinol 100 Mg Tablet PO 11/07/24 08:59 100 mg QDAY W[place]ON Administration Amiodarone HCl 200 mg 10/08/24 09:40 10/09/24 09:00 Amiodarone Hcl 200 Mg Tablet PO 11/07/24 09:39 200 mg QDAY W[place]ON Administration Atorvastatin Calcium 80 mg 10/08/24 21:00 10/08/24 20:20 Atorvastatin Calcium 20 Mg Tablet PO 11/07/24 20:59 80 mg HS WINSTON Administration Posaconazole 100 Mg 0 ea 10/08/24 11:30 10/09/24 09:01 Delayed Release PO 11/07/24 11:29 4 tablet Tablet DAILY WINSTON Administration Dextrose 25 ml 10/07/24 22:47 Dextrose 50%-Water Inj 50 Ml Syringe IV 11/06/24 22:46 Q15MIN PRN BG 50-70 responsive npo pt Dextrose 50 ml 10/07/24 22:47 Dextrose 50%-Water Inj 50 Ml Syringe IV 11/06/24 22:46 Q15MIN PRN BG <50 OR BG <70 & pt unresponsive Furosemide 20 mg 10/08/24 09:00 10/08/24 09:30 Furosemide 20 Mg Tablet PO 11/07/24 08:59 20 mg BID WINSTON Administration Glucagon 1 mg 10/07/24 22:47 Glucagon Inj 1 Mg Vial IM Q15MIN PRN BG <70, and no IV access Hydroxychloroquine Sulfate 200 mg 10/08/24 09:00 10/09/24 09:00 Hydroxychloroquine 200 Mg Tablet PO 10/15/24 08:59 200 mg BID WINSTON Administration Midodrine 10 mg 10/07/24 22:45 10/09/24 05:11 Midodrine 5 Mg Tablet PO 11/06/24 22:44 10 mg TID WINSTON Administration Pharmacy Consult 1 each 10/08/24 09:00 Pharmacy To Dose Warfarin PO 11/07/24 08:59 QDAY PRN CONSULT Prednisone 5 mg 10/08/24 09:00 10/09/24 09:00 Prednisone 5 Mg Tablet PO 11/07/24 08:59 5 mg QAM WINSTON Administration Pregabalin 100 mg 10/08/24 21:00 10/09/24 09:00 Pregabalin 50 Mg Capsule PO 11/07/24 08:59 100 mg BID WINSTON Administration Sodium Chloride 3 ml 10/08/24 07:38 Sodium Chloride Rt Arlen 0.9% 3 Ml Nebu INH 11/07/24 07:37 PRN PRN SOLN Tacrolimus 0.5 mg 10/08/24 13:00 10/08/24 13:11 Tacrolimus 0.5 Mg Capsule (Non-Formulary) PO 11/07/24 12:59 0.5 mg TUTHSA WINSTON Administration Warfarin Sodium 1 mg 10/09/24 12:00 Warfarin 1 Mg Tablet PO 10/09/24 12:01 1200 [facility] Elma Vela is a 59-year-old female with medical history of SLE, lupus nephritis status post kidney transplant in 2019, ESRD (HD on M, F), antiphospholipid antibody syndrome (warfarin), A-fib (on amiodarone), 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 She follows with PCP Dr. Ozuna, architectural project manager in [place], and cost estimator Dr. Nelson. Currently on warfarin 2.5 mg p.o. every other day for her antiphospholipid antibody syndrome. Given that patient is ESRD, nephrology was consulted, with last dialysis session being Monday morning, 10/07. #ESRD on hemodialysis M, F #Lupus nephritis status post kidney transplant in 2019 Patient received hemodialysis yesterday morning and labs stable, barring hypokalemia that has been repleted by primary team. She also does not appear to be volume overloaded so we will resume hemodialysis schedule of M, F so long as patient remains in house. Follows cost estimator, Dr. Nelson, in [place]. ? Continue M, F hemodialysis regimen ? Renally dose medications ? Avoid nephrotoxic agents #Presyncope secondary to hypoglycemia- on IVF #Symptomatic hypoglycemia #HFpEF 55 to 60%) #Paroxysmal A-fib on amiodarone #Mitral stenosis #SLE #Antiphospholipid antibody syndrome, on warfarin #Type 2 diabetes mellitus, insulin-dependent #Gout #Valley fever #Hypokalemia ? Continue management per primary team ----- Plan discussed with attending physician Dr. Demetrice Hussein MD PGY-1 Internal Medicine Attending Provider Attestation/Addendum Patient seen and examined with resident physician Dr. Waggoner. Note reviewed, agree with findings and recommendations. Next dialysis scheduled for Monday Pending cardiac cath, Dr. Waters. Spoke to daughter at bedside
--- NOTE | 2024-10-09 11:04 | ESPR_ITS ---
<Statement entered by Riddhi Ronquillo MD - 10/15/24 12:07> I reviewed above note and agree with findings and plans. I have also personally examined the patient with medicine team and went over assessment and plan with medical team including data analysis intern and resident physician. <Statement entered by Roya Briggs MD - 10/09/24 21:48> Rapid response was called around 1:45 PM, for change in mental status. On vitals she had temperature of 102. Stat RBS, CBC, CMP, lactic acid, troponin, ABG, blood cultures were ordered to 50 mL bolus of fluid was given and patient was started on vancomycin and Levaquin. Even after the bolus of fluid her blood pressure was in softer side maintaining MAP in lower 60s. ICU team was consulted for possible upgrade , in the setting of septic shock requiring pressors. I discussed with and supervised my co-resident involved in the care of this patient. I agree with the assessment and plan as documented above. Roya Briggs,PGY-3 Disclaimer: Despite multiple revisions, due to the dictation software being used, the document below may not be free of grammatical errors including phonetic/typographic errors. However, this does not deter from our commitment to providing health care in the patient's best interest in mind Documentation for date of: 10/09/24 Subjective Subjective Interval history: Patient was seen at bedside this morning. No overnight events. Cardiology recommended to hold warfarin for now as patient will likely undergo heart cath on or Monday when INR is less than 2. Patient had no new complaints this time. Hemodialysis scheduled for Monday if patient is still in the hospital. Start sevelamer for hyperphosphatemia. No other complaints at this time. Exam Vital Signs Temp Pulse Resp BP Pulse Ox O2 Del Method 97.7 F 75 30 H 106/67 100 Room Air 10/09/24 08:00 10/09/24 09:00 10/09/24 08:00 10/09/24 09:00 10/09/24 08:00 10/09/24 08:00 Narrative Exam General: A/O x3, no acute distress, ill-appearing Eyes: PERRL, EOMI. Anicteric, vision grossly intact. Ears: No ear pain, no ear discharge, Hearing grossly intact. Nose: No nasal discharge. Mouth/Throat: Dry mucous membranes, no redness, no lesions. Neck: Neck supple, non-tender, no cervical lymphadenopathy. Lungs: TRACI coarse rhonchi, No accessory muscle use. Cardio: Normal S1/S2, irregular rhythm, no murmurs, no JVD. Abdomen: Soft, non-tender, no palpable masses, peristalsis present, no guarding or rebound. Extremities: Symmetrical, no significant deformities, no peripheral edema , non-tender, peripheral pulses presents. Skin: No rashes, no lesions, warm to touch. Drainage in R side abdomen from partial syeda with visible drainage and hematoma with minimal to no drainage. Neuro: No focal neurological deficits. motor and sensory intact, Strength TRACI LE 4/5 and TRACI UE 5/5. Psych: Cooperative, appropriate mood and effect. Objective Labs 10/09/24 14:11 10/09/24 14:11 Labs: Laboratory Results - last 24 hr 10/08/24 10/08/24 10/08/24 10:50 15:28 21:38 WBC RBC Hgb Hct MCV MCH MCHC RDW Std Deviation Plt Count Neut % (Auto) Lymph % (Auto) [place] % (Auto) Eos % (Auto) Baso % (Auto) Neut # (Auto) Lymph # (Auto) [place] # (Auto) Eos # (Auto) Baso # (Auto) Immature Gran # (Auto) Absolute Nucleated RBC Immature Gran % Nucleated RBC % PT INR APTT Sodium Potassium Chloride Carbon Dioxide Anion Gap BUN Creatinine Estim Creat Clear Calc eGFR BUN/Creatinine Ratio Glucose Calculated Osmolality Calcium Corrected Calcium Phosphorus Magnesium Total Bilirubin AST ALT Alkaline Phosphatase Troponin I 7.493 H* D 7.170 H* D 6.110 H* D Total Protein Albumin Globulin Albumin/Globulin Ratio 10/09/24 04:50 WBC 7.6 RBC 3.53 L Hgb 10.1 L Hct 34.6 L MCV 98 MCH 28.6 MCHC 29.2 L RDW Std Deviation 67.2 H Plt Count 186 Neut % (Auto) 76 Lymph % (Auto) 16 [place] % (Auto) 6 Eos % (Auto) 1 Baso % (Auto) 1 Neut # (Auto) 5.7 Lymph # (Auto) 1.2 [place] # (Auto) 0.5 Eos # (Auto) 0.1 Baso # (Auto) 0.1 Immature Gran # (Auto) 0.04 H Absolute Nucleated RBC 0.00 Immature Gran % 1 H Nucleated RBC % 0 PT 27.7 H D INR 2.7 H APTT 38.7 H Sodium 136 Potassium 4.3 D Chloride 98 Carbon Dioxide 20.5 Anion Gap 18 H BUN 32 H Creatinine 4.4 H* D Estim Creat Clear Calc 12.6 L eGFR 11 L* BUN/Creatinine Ratio 7 L Glucose 67 L Calculated Osmolality 276 Calcium 8.9 Corrected Calcium 9.3 Phosphorus 7.6 H Magnesium 2.1 Total Bilirubin 0.7 AST 44 H ALT 20 Alkaline Phosphatase 139 H Troponin I 6.157 H* Total Protein 6.4 Albumin 3.5 Globulin 2.9 Albumin/Globulin Ratio 1.2 Quality Measures Quality Measures none Assessment & Plan Assessment Current Active Medications: Generic Name Dose Route Start Last Admin Trade Name Freq PRN Reason Stop Dose Admin Acetaminophen 650 mg 10/07/24 22:21 Acetaminophen 325 Mg Tablet PO 11/06/24 22:20 Q6H PRN Fever >101.5 Hydrocodone Bitart/Acetaminophen 1 tab 10/08/24 12:14 10/09/24 05:10 Hydrocodone/Apap 5/325 Tablet PO 10/13/24 12:13 1 tab Q4HR PRN Administration PAIN SCALE 4-10(Mod-Sev Albuterol 2.5 mg 10/08/24 07:45 Albuterol Rt 2.5 Mg/0.5 Ml Nebu INH 11/07/24 07:44 TID WINSTON Albuterol 2.5 mg 10/08/24 07:38 Albuterol Rt 2.5 Mg/0.5 Ml Nebu INH 11/07/24 10:59 Q4HRRT PRN SOB or Wheeze Allopurinol 100 mg 10/08/24 09:00 10/09/24 09:00 Allopurinol 100 Mg Tablet PO 11/07/24 08:59 100 mg QDAY W[place]ON Administration Amiodarone HCl 200 mg 10/08/24 09:40 10/09/24 09:00 Amiodarone Hcl 200 Mg Tablet PO 11/07/24 09:39 200 mg QDAY WINSTON Administration Atorvastatin Calcium 80 mg 10/08/24 21:00 10/08/24 20:20 Atorvastatin Calcium 20 Mg Tablet PO 11/07/24 20:59 80 mg HS WINSTON Administration Posaconazole 100 Mg 0 ea 10/08/24 11:30 10/09/24 09:01 Delayed Release PO 11/07/24 11:29 4 tablet Tablet DAILY WINSTON Administration Dextrose 25 ml 10/07/24 22:47 Dextrose 50%-Water Inj 50 Ml Syringe IV 11/06/24 22:46 Q15MIN PRN BG 50-70 responsive npo pt Dextrose 50 ml 10/07/24 22:47 Dextrose 50%-Water Inj 50 Ml Syringe IV 11/06/24 22:46 Q15MIN PRN BG <50 OR BG <70 & pt unresponsive Furosemide 20 mg 10/08/24 09:00 10/08/24 09:30 Furosemide 20 Mg Tablet PO 11/07/24 08:59 20 mg BID WINSTON Administration Glucagon 1 mg 10/07/24 22:47 Glucagon Inj 1 Mg Vial IM Q15MIN PRN BG <70, and no IV access Hydroxychloroquine Sulfate 200 mg 10/08/24 09:00 10/09/24 09:00 Hydroxychloroquine 200 Mg Tablet PO 10/15/24 08:59 200 mg BID WINSTON Administration Midodrine 10 mg 10/07/24 22:45 10/09/24 05:11 Midodrine 5 Mg Tablet PO 11/06/24 22:44 10 mg TID WINSTON Administration Pharmacy Consult 1 each 10/08/24 09:00 Pharmacy To Dose Warfarin PO 11/07/24 08:59 QDAY PRN CONSULT Prednisone 5 mg 10/08/24 09:00 10/09/24 09:00 Prednisone 5 Mg Tablet PO 11/07/24 08:59 5 mg QAM WINSTON Administration Pregabalin 100 mg 10/08/24 21:00 10/09/24 09:00 Pregabalin 50 Mg Capsule PO 11/07/24 08:59 100 mg BID WINSTON Administration Sevelamer Carbonate 800 mg 10/09/24 12:00 Sevelamer Carbonate 800 Mg Tablet PO 11/08/24 11:59 TIDWM WINSTON Sodium Chloride 3 ml 10/08/24 07:38 Sodium Chloride Rt Arlen 0.9% 3 Ml Nebu INH 11/07/24 07:37 PRN PRN SOLN Tacrolimus 0.5 mg 10/08/24 13:00 10/08/24 13:11 Tacrolimus 0.5 Mg Capsule (Non-Formulary) PO 11/07/24 12:59 0.5 mg TUTHSA WINSTON Administration Plan 59-year-old female with past medical SLE, lupus nephritis s/p kidney transplant 2019, ESRD (HD on /), IDDM, antiphospholipid antibody syndrome (on warfarin), gout, mitral stenosis, atrial fibrillation (on Amio), valley fever (on posaconazole), and recent partial cholecystectomy on April [address] was admitted to the hospital on 10/08/2024 due to presyncope in the setting of hypoglycemia and NSTEMI. #NSTEMI ?Patient did not coming with any chest pains, shortness of breath, or numbness ? Troponins elevated to 6.464 ?EKG that shows some ST depressions in lateral leads. ?Patient's INR was therapeutic at 3.3 ? INR 2.7 today ? Troponins peaked at 7.494 and down trended ?Possible heart cath or Monday as per cardiology when INR is less than 2 Plan: ?Holding anticoagulation for now until INR is less than 2 - Continue atorvastatin 80 HS ? Cardiology consulted, appreciate recommendations ? Will continue to monitor #Presyncope likely secondary to #Hypoglycemia in the setting of insulin use and poor oral intake #IDDM ? Patient came in with complaints of almost passing out and feeling that everything went black after she took her scheduled dose of insulin while not having good oral intake yesterday after dialysis. ? A1c 3.9 Plan: ? Hypoglycemic protocol ordered ? Blood glucose checks - Hold off on insulin for now ? Will continue to monitor #Hx of HFmrEF (EF 45%) #Hx of atrial fibrillation (on amiodarone) #Hx of mitral stenosis ? Patient takes amiodarone 200 mg daily ?Echo on 01/2024 showed EF of 55 to 60% with moderate MS ? Patient's EKG showed A-fib with RVR as well as some ST depressions in lateral leads ? Patient appears to be rate controlled at this time ? Patient does not have any shortness of breath for lower extremity swelling and does not appear to be any acute heart failure exacerbation at this time ?Echo 09/2024 showed EF of 45% with hypokinesis of inferior lateral wall and posterior inferior wall Plan: ?Continue amiodarone 200 mg daily ? Holding diuresis for now as patient is not in acute heart failure exacerbation and is likely volume depleted - Will continue to monitor #Hx of ESRD (HD on /) #Hyperphosphatemia - Patient is still able to produce some urine - Cr 4.4 and BUN 32 today - Phos 7.6 Plan: - started sevelamer TID ? Continue hemodialysis as scheduled ? Avoid nephrotoxic agents ? Continue dose medication ? Nephrology consulted, appreciate recommendations #Hx of SLE #Hx of lupus nephritis s/p kidney transplant (2019) #Hx of antiphospholipid antibody syndrome (on Coumadin) #Hx of gout ? Patient is taking allopurinol, hydroxychloroquine, tacrolimus, and prednisone. ? INR 2.7 today therefore holding warfarin for For possible heart cath or Monday when INR less than 2. ? Goal INR for antiphospholipid syndrome it is 2-3. ? Will continue patient's allopurinol, hydroxychloroquine, tacrolimus, and prednisone. #Hx of valley fever ?Continue patient's posaconazole Disposition: Started sevelamer for hyperphosphatemia, holding warfarin as possible heart cath or Monday when INR is less than 2. Diet: Renal GI prophylaxis: not indicated DVT prophylaxis: SCDs Code: Full code Case disclosed with Attending Dr. Ronquillo and My senior Dr. Briggs PGY3. Santos Duffy PGY1
[2024-10-09] MEDS: SEVELAMER CARBONATE 800 MG TABLET PO ×2 (12:09→17:34)
[2024-10-09] MEDS: ACETAMINOPHEN 325 MG TABLET 650 MG PO (13:42)
--- NOTE | 2024-10-09 13:49 | XR_ITS ---
Examination: AP chest single view TECHNIQUE: AP portable upright chest single view Exam date and time: October 09, 2024 1439 hours Comparison October 07, 2024 INDICATIONS: Onset SOB today. FINDINGS: Mild heart failure Mild enlargement cardiac contour with prominent vascular congestion Perihilar edema and/or pneumonia with possible left pleural effusion IMPRESSION: Mild heart failure Bilateral pulmonary edema and/or pneumonia, clinical correlation advised
--- NOTE | 2024-10-09 13:49 | XR_ITS ---
Examination: Abdomen sonogram, complete Date and time of exam: October 09, 2024 1630 hours INDICATIONS: Diagnosis lupus nephritis, renal transplant 2019, onset acute abdominal pain today. Technique: Multiple real-time grayscale transabdominal sonographic images of the abdomen have been obtained. Findings: Absent gallbladder Common bile duct 0.4 cm Pancreatic head 2.3 cm Aorta not enlarged Liver 17.5 cm fatty infiltration lobular margins Minimal free fluid in the upper right abdomen Normal hepatopedal portal venous flow Patent IVC Right kidney 8.7 x 4.4 x 5.0 cm cortex 0.5 cm Midpole cyst 23 mm Left kidney 8.6 x 5.7 x 6.3 cm cortex 1.0 cm Transplant kidney 11.7 x 5.5 x 7.8 cm cortex 1.2 cm Cyst in the transplant kidney 22 x 19 mm Splenule Spleen 13.2 cm IMPRESSION: Absent gallbladder Normal common bile duct Fatty liver Minimal free fluid in the right upper abdomen Atrophic [place] kidneys No hydronephrosis of the transplant kidney
--- NOTE | 2024-10-09 13:51 | EKG_ITS ---
[facility] Test Date: 2024-10-09 Pat Name: JUSTINE DAIGLE Department: Room: 60A Gender: Female Colorist Photography: NILSA : [id number] Requested By: Randy Mayers Order Number: [id number] Reading MD: Randy Mayers Measurements Intervals [place] Rate: 79 P: ID: [id number]: [id number] QRSD: 166 T: 127 QT: 449 QTc: 515 Interpretive Statements UNCERTAIN REGULAR RHYTHM MARKED LEFT AXIS DEVIATION LEFT BUNDLE BRANCH BLOCK Compared to ECG 10/07/2024 20:57:44 Left-axis deviation now present Left bundle-branch block now present Atrial fibrillation no longer present Intraventricular conduction delay no longer present ST (T wave) deviation no longer present /store/S0/[id number]/[id number].pdf
--- NOTE | 2024-10-09 14:06 | EVENTNT_ITS ---
<Statement entered by Riddhi Ronquillo MD - 10/15/24 12:08> I reviewed above note and agree with findings and plans. I have also personally examined the patient with medicine team and went over assessment and plan with medical team including internet marketing coordinator and resident physician. Documentation for date of: 10/09/24 Event Note Event Note: Rapid response was called today around 1:45 PM due to acute change in patient's mental status as well as new onset fevers. At this time patient's blood pressure was also low with MAP around 63 with the highest 1 being 71 when patient was in Trendelenburg position. Patient was still able to respond to questioning and was arousable, but did look a lot morning lethargic. Given that the patient had fevers and low blood pressure sepsis alert was called with the possible source being the past partial cholecystectomy done on April 2024. At this time ABG, CBC, CMP, abdomen ultrasound, blood cultures, Tylenol suppository, EKG, magnesium, phosphorus, lactic acid, 250 mL bolus at 100 cc/h, vancomycin, and Levaquin were ordered. At the end of the rapid response patient's mental blood pressure was still in the mid 60s therefore ICU was consulted. Case disclosed with Attending Dr. Yg Duffy PGY1n
[2024-10-09] MEDS: SODIUM CHLORIDE 0.9% 250 ML 250 ML 100 ML IV (14:09)
[2024-10-09] MEDS: ACETAMINOPHEN SUPP 650 MG SUPP PR (14:09)
[2024-10-09] MEDS: VANCOMYCIN/NS 1 GM IVPB 200 ML IV (14:15)
[2024-10-09 14:21] LABS: Basophils # (Auto) 0.1 Thou/mm3 (0.0-0.2); Basophils % (Auto) 0 % (0-2.5); Eosinophils % (Auto) 0 % (0-10); Hematocrit 36.2 % (36.0-46.0); Hemoglobin 10.7 g/dL (12.0-16.0); Immature Granulocytes % (Auto) 1 % (0-0); Immature Granulocytes Auto 0.08 Thou/mm3 (0.00-0.00); Lymphocytes # (Auto) 0.5 Thou/mm3 (1.0-4.8); Lymphocytes % (Auto) 3 % (10-50); Mean Corpuscular HGB Conc 29.6 g/dl (31.0-37.0); Mean Corpuscular Hemoglobin 28.9 pg (25.0-35.0); Mean Corpuscular Volume 98 fL (80-100); Monocytes # (Auto) 0.6 Thou/mm3 (0.0-0.8); Monocytes % (Auto) 4 % (0-12); Neutrophils # (Auto) 14.6 Thou/mm3 (1.8-7.7); Neutrophils % (Auto) 92 % (37-80); Nucleated Red Blood Cell # 0.02 Thou/mm3 (0.00-0.00); Nucleated Red Blood Cell % 0 /100 WBC (0); Platelet Count 185 Thou/mm3 (140-440); RDW Standard Deviation 67.9 fL (36.4-46.3); White Blood Count 15.9 Thou/mm3 (3.6-11.0)
[2024-10-09 14:38] LABS: Base Excess -3 (-3-3); HCO3 20 mEq/L (20-26); Inspired O2, VO2 Liters 2 L/min; Inspired Oxygen, FIO2 21 %; O2 Saturation 91 % (91-98); PCO2 30 mmHg (32.0-48.0); pH, Arterial 7.45 (7.35-7.45)
[2024-10-09 14:51] LABS: Lactate (Lactic Acid) 4.7 mMol/L (0.4-2.0)
[2024-10-09 14:51] LABS: PO2 59 mmHg (83-108)
[2024-10-09 14:52] LABS: Allen Test Not Performed; Puncture Site Right Radial
[2024-10-09 15:02] LABS: Alanine Aminotransferase 21 U/L (10-49); Albumin, Serum 3.6 gm/dL (3.5-5.0); Albumin/Globulin Ratio 1.2 (1.2-2.2); Alkaline Phosphatase 145 U/L (46-116); Anion Gap 19 (7-16); Aspartate Amino Transferase 43 U/L (0-34); BUN/Creatinine Ratio 8 Ratio (12-20); Bilirubin,Total 0.9 mg/dL (0.3-1.2); Blood Urea Nitrogen 35 mg/dL (9-23); Calcium 8.7 mg/dL (8.3-10.6); Carbon Dioxide 19.2 mMol/L (20.0-31.0); Chloride 96 mMol/L (98-107); Creatinine (Component) 4.6 mg/dL (0.6-1.3); Estimated Creatinine Clearance 12.1 mL/min (>60); Glucose 106 mg/dL (74-106); Osmolality,Calculated 276 (275-295); Phosphorous 7.3 mg/dL (2.4-5.1); Potassium 4.9 mMol/L (3.4-5.1); Sodium 134 mMol/L (136-145); Total Protein 6.6 gm/dL (5.7-8.2); eGFR 11 See Note
[2024-10-09 15:07] LABS: Troponin I 5.057 ng/mL (0.0-0.045)
[2024-10-09] MEDS: LEVOFLOXACIN/D5W 750MG IVPB 750 MG/150 ML BAG 100 MG IV (15:31)
--- NOTE | 2024-10-09 16:51 | ESPR_ITS ---
<Statement entered by Sarath Waters MD - 10/10/24 11:37> I personally evaluated and examined the patient appears to be not doing well she developed tachycardia elevated temperature sepsis alert was called and rapid response called given IV fluids patient's somewhat more stable this evening definitely had acute non-ST segment elevation myocardial infarction with inferolateral wall motion abnormalities and troponin elevation but now currently she is having sepsis and multiple issues and is not a candidate for angiogram at this time INR is still therapeutic and IV heparin is not started will start IV heparin when INR drops below 2 sometime before discharge she may require coronary evaluation with angiogram. Evaluate the patient in critical condition along with PGY 2 Dr. Clifford will continue to monitor the patient prognosis is guarded condition is critical. Patient has prolonged QT interval will reduce amiodarone dose to once a day Documentation for date of: 10/09/24 Subjective Subjective Interval history: Night, no acute events reported. Patient seen and examined at bedside. Patient is more alert and responsive to questions today. Patient had a rapid response around 1:45 PM for sepsis alert. Patient's fever spiked to 102.3, and white count on CBC today showed 15.9 with lactic acid of 4.7. Patient was started on IV vancomycin and IV Levaquin. Blood cultures were collected and given a total of 250 cc. His MAP consistently is below 65, as a result he was consulted for possible pressor support. On examination, no surface level signs of infection were seen in either her IV line and cholecystostomy tube. Last EKG noted to show elevated Qtc from yesterday, 407 to 515. Exam Vital Signs Temp Pulse Resp BP Pulse Ox O2 Del Method O2 Flow Rate 98.6 F 76 17 79/49 L 98 Nasal Cannula 2 10/09/24 15:51 10/09/24 15:04 10/09/24 15:04 10/09/24 15:04 10/09/24 15:04 10/09/24 15:04 10/09/24 15:04 Narrative Exam General Appearance: Pt in mild acute distress, ill-appearing laying in bed. Appears older than age, responsive to most questions. Family members are present at bedside. HEENT: NC/AT, no scleral icterus, no conjunctival pallor, dry MM Lungs: CTAB, no wheezes or crackles appreciated CVS: Irregularly, irregular rhythm. S1/S2 heard, no murmurs or rubs appreciated ABD: Soft, non-tender, non-distended, BS + in all 4 quadrants EXT: no deformity/edema/lesions/cyanosis/clubbing, radial pulses 2+ BL, DP pulses 2 + BL, AV fistula with good thrill noted in right upper extremity SKIN: Skin exam normal without any rashes except for drainage noted in right side of abdomen from partial cholecystectomy. Warm to touch. Neuro: A&O x 3. No gross neurological deficits. Able to move all 4 extremities. Psych: Appropriate mood and affect Objective Labs 10/09/24 14:11 10/09/24 14:11 Labs: Laboratory Results - last 24 hr 10/08/24 10/09/24 10/09/24 21:38 04:50 14:11 WBC 7.6 15.9 H D RBC 3.53 L 3.70 L Hgb 10.1 L 10.7 L Hct 34.6 L 36.2 MCV 98 98 MCH 28.6 28.9 MCHC 29.2 L 29.6 L RDW Std Deviation 67.2 H 67.9 H Plt Count 186 185 Neut % (Auto) 76 92 H Lymph % (Auto) 16 3 L [place] % (Auto) 6 4 Eos % (Auto) 1 0 Baso % (Auto) 1 0 Neut # (Auto) 5.7 14.6 H Lymph # (Auto) 1.2 0.5 L [place] # (Auto) 0.5 0.6 Eos # (Auto) 0.1 0.0 Baso # (Auto) 0.1 0.1 Immature Gran # (Auto) 0.04 H 0.08 H Absolute Nucleated RBC 0.00 0.02 H Immature Gran % 1 H 1 H Nucleated RBC % 0 0 PT 27.7 H D INR 2.7 H APTT 38.7 H Puncture Site ABG pH ABG pCO2 ABG pO2 ABG HCO3 ABG O2 Saturation ABG Base Excess Oxygen Liter Flow FiO2 Sodium 136 134 L Potassium 4.3 D 4.9 D Chloride 98 96 L Carbon Dioxide 20.5 19.2 L Anion Gap 18 H 19 H BUN 32 H 35 H Creatinine 4.4 H* D 4.6 H* Estim Creat Clear Calc 12.6 L 12.1 L eGFR 11 L* 11 L* BUN/Creatinine Ratio 7 L 8 L Glucose 67 L 106 D Calculated Osmolality 276 276 Lactic Acid 4.7 H* Calcium 8.9 8.7 Corrected Calcium 9.3 9.0 Phosphorus 7.6 H 7.3 H Magnesium 2.1 2.0 Total Bilirubin 0.7 0.9 AST 44 H 43 H ALT 20 21 Alkaline Phosphatase 139 H 145 H Troponin I 6.110 H* D 6.157 H* 5.057 H* D Total Protein 6.4 6.6 Albumin 3.5 3.6 Globulin 2.9 3.0 Albumin/Globulin Ratio 1.2 1.2 10/09/24 14:30 WBC RBC Hgb Hct MCV MCH MCHC RDW Std Deviation Plt Count Neut % (Auto) Lymph % (Auto) [place] % (Auto) Eos % (Auto) Baso % (Auto) Neut # (Auto) Lymph # (Auto) [place] # (Auto) Eos # (Auto) Baso # (Auto) Immature Gran # (Auto) Absolute Nucleated RBC Immature Gran % Nucleated RBC % PT INR APTT Puncture Site Right Radial ABG pH 7.45 ABG pCO2 30 L ABG pO2 59 L* ABG HCO3 20 ABG O2 Saturation 91 ABG Base Excess -3 Oxygen Liter Flow 2 FiO2 21 Sodium Potassium Chloride Carbon Dioxide Anion Gap BUN Creatinine Estim Creat Clear Calc eGFR BUN/Creatinine Ratio Glucose Calculated Osmolality Lactic Acid Calcium Corrected Calcium Phosphorus Magnesium Total Bilirubin AST ALT Alkaline Phosphatase Troponin I Total Protein Albumin Globulin Albumin/Globulin Ratio ABG Interpretation ABG results: 10/09/24 14:30 ABG pH 7.45 ABG pCO2 30 L ABG pO2 59 L* ABG HCO3 20 ABG O2 Saturation 91 ABG Base Excess -3 Quality Measures Quality Measures none Assessment & Plan Assessment Current Active Medications: Generic Name Dose Route Start Last Admin Trade Name Freq PRN Reason Stop Dose Admin Acetaminophen 650 mg 10/07/24 22:21 10/09/24 13:42 Acetaminophen 325 Mg Tablet PO 11/06/24 22:20 650 mg Q6H PRN Administration Fever >101.5 Hydrocodone Bitart/Acetaminophen 1 tab 10/08/24 12:14 10/09/24 05:10 Hydrocodone/Apap 5/325 Tablet PO 10/13/24 12:13 1 tab Q4HR PRN Administration PAIN SCALE 4-10(Mod-Sev Albuterol 2.5 mg 10/08/24 07:45 Albuterol Rt 2.5 Mg/0.5 Ml Nebu INH 11/07/24 07:44 TID W[place] Albuterol 2.5 mg 10/08/24 07:38 Albuterol Rt 2.5 Mg/0.5 Ml Nebu INH 11/07/24 10:59 Q4HRRT PRN SOB or Wheeze Allopurinol 100 mg 10/08/24 09:00 10/09/24 09:00 Allopurinol 100 Mg Tablet PO 11/07/24 08:59 100 mg QDAY [place] Administration Amiodarone HCl 200 mg 10/08/24 09:40 10/09/24 09:00 Amiodarone Hcl 200 Mg Tablet PO 11/07/24 09:39 200 mg QDAY [place] Administration Atorvastatin Calcium 80 mg 10/08/24 21:00 10/08/24 20:20 Atorvastatin Calcium 20 Mg Tablet PO 11/07/24 20:59 80 mg HS W[place] Administration Posaconazole 100 Mg 0 ea 10/08/24 11:30 10/09/24 09:01 Delayed Release PO 11/07/24 11:29 4 tablet Tablet DAILY [place] Administration Dextrose 25 ml 10/07/24 22:47 Dextrose 50%-Water Inj 50 Ml Syringe IV 11/06/24 22:46 Q15MIN PRN BG 50-70 responsive npo pt Dextrose 50 ml 10/07/24 22:47 Dextrose 50%-Water Inj 50 Ml Syringe IV 11/06/24 22:46 Q15MIN PRN BG <50 OR BG <70 & pt unresponsive Furosemide 20 mg 10/08/24 09:00 10/08/24 09:30 Furosemide 20 Mg Tablet PO 11/07/24 08:59 20 mg BID [place] Administration Glucagon 1 mg 10/07/24 22:47 Glucagon Inj 1 Mg Vial IM Q15MIN PRN BG <70, and no IV access Hydroxychloroquine Sulfate 200 mg 10/08/24 09:00 10/09/24 09:00 Hydroxychloroquine 200 Mg Tablet PO 10/15/24 08:59 200 mg BID [place] Administration Levofloxacin/Dextrose 500 mg in 100 mls @ 100 mls/hr 10/11/24 09:00 Levaquin Ivpb IV 10/18/24 08:59 Q48H [place] Midodrine 10 mg 10/07/24 22:45 10/09/24 13:33 Midodrine 5 Mg Tablet PO 11/06/24 22:44 Not Given TID [facility] Pharmacy Consult 1 each 10/08/24 09:00 Pharmacy To Dose Warfarin PO 11/07/24 08:59 QDAY PRN CONSULT Pharmacy Consult 1 each 10/09/24 14:00 Vancomycin Pharmacy To Dose 1 Each Each IV 11/08/24 13:59 QDAY PRN PROTOCOL Prednisone 5 mg 10/08/24 09:00 10/09/24 09:00 Prednisone 5 Mg Tablet PO 11/07/24 08:59 5 mg QAM [place] Administration Pregabalin 100 mg 10/08/24 21:00 10/09/24 09:00 Pregabalin 50 Mg Capsule PO 11/07/24 08:59 100 mg BID [place] Administration Sevelamer Carbonate 800 mg 10/09/24 12:00 10/09/24 12:09 Sevelamer Carbonate 800 Mg Tablet PO 11/08/24 11:59 800 mg TIDWM [place] Administration Sodium Chloride 3 ml 10/08/24 07:38 Sodium Chloride Rt Arlen 0.9% 3 Ml Nebu INH 11/07/24 07:37 PRN PRN SOLN Tacrolimus 0.5 mg 10/08/24 13:00 10/08/24 13:11 Tacrolimus 0.5 Mg Capsule (Non-Formulary) PO 11/07/24 12:59 0.5 mg TUTHSA W[place]ON Administration Plan Ms. Vela is a 59-year-old female with past medical history significant for hypertension, hyperlipidemia, type 2 diabetes, post kidney transplant on dialysis Mondays and Fridays, lupus, antiphospholipid syndrome, mitral stenosis and stroke on warfarin, multiple surgeries including a cholecystectomy last year who presented to the ED with a syncopal episode. Cardiology was consulted for further management for her syncope and elevated troponin most likely secondary to demand ischemia and supratherapeutic INR. #Elevated Troponin most likely in the setting of demand ischemia #Supratherapeutic INR #Moderate mitral stenosis secondary to heavy calcification, mitral annulus #HFmEF, 45% #Peripheral arterial occlusive disease and peripheral neuropathy. #Antiphospholipid syndrome, on Coumadin #Long QT interval Patient presented with an episode of syncopal episode status post insulin administration. Patient's vital signs have been stable except for elevated heart rate on initial presentation. Blood sugar in ER was 69 status post 5u Lispro. Patient's troponin peaked at 7.493 and is downtrending. BNP elevated at 3000 180. INR today was 3.3. EKG continues to show A-fib with no ST-T changes from previous EKG. Echo showed mild hypokinesis of inferior lateral and posterior wall, EF 45%, severe LA dilatation, severe degenerative mitral valve annulus calcification with moderate MV stenosis. EF decreased from 55% to 45% since last January 2024. On tele monitor, patient's HR is well controlled, and goes in-an-out of A-fib. -Will follow-up with a.m. coagulation -Keep potassium above 4 and magnesium above 2 -Continue to hold warfarin dose as INR is supratherapuetic -Will start heparin gtt once INR is < 2 -Possible plan for angiogram on /Monday depending on INR -EKG today shows an elevated QTc of 505, consider holding today's amiodarone dose since rate is controlled #SLE with hx of kidney transplant #Status post renal transplant on dialysis M&F #Diabetes mellitus?well-controlled Rest of problems as per primary team Patient's plan and care discussed with my attending, Dr. Jt Clifford MD PGY-2
[2024-10-09 17:16] LABS: Reflex Lactate? Y
--- NOTE | 2024-10-09 17:55 | XR_ITS ---
Examination: CT abdomen with intravenous contrast CT pelvis with intravenous contrast 2-D coronal reconstructions 2-D sagittal reconstructions Date and time of exam:October 10, 2024 at 0500 hrs. Comparison July 17, 2024 Indications: Renal failure, onset generalized abdominal pain today. CTDI: vol (mGy) 7.43 DLP: (mGycm) 403 Technique: Multiple axial sections of the abdomen and pelvis have been obtained. 64 slice high-resolution scanner used. 3 mm axial sections have been obtained, post intravenous injection 60 cc [id number] 2-D sagittal, coronal reconstructions obtained. Low dose protocols were performed. One or more of the following dose reduction techniques were used; automated exposure control, adjustment of the mA and/or KV according to patient size, use of iterative reconstruction technique. Findings: Moderate enlargement left atrium left ventricle Heavy mitral valvular calcification Bibasilar pneumonia with minimal right mild left pleural fluid Liver is irregular in contour, enlarged 20 cm Percutaneous cholecystostomy drainage catheter satisfactory position. Mild ascites No splenic lesion End-stage atrophic kidneys Heavy vascular calcification No bowel obstruction Right lateral abdomen drainage tube with marked decrease in cystic mass in the right retroperitoneum, drainage catheter satisfactory position Large lower right lateral pelvic wall hernia defect again noted, measuring at least 10 cm, containing bowel but no incarcerated bowel No pelvic mass Urinary bladder wall thickening up to 6 mm Left pelvic transplant kidney does not exhibit hydronephrosis Severe osteopenia with advanced disc narrowing L1-L2 Moderate narrowing hip joints Impression: Moderate enlargement cardiac contour Bibasilar pneumonia Primary hepatocellular disease Percutaneous cholecystostomy drainage catheter satisfactory position Marked decrease in size of cystic mass in the right retroperitoneum with drainage catheter satisfactory position Mild ascites End-stage point hope ira kidneys Left transplant kidney does not exhibit hydronephrosis
[2024-10-09 18:00] LABS: Lactate (Lactic Acid) 3.3 mMol/L (0.4-2.0)
--- NOTE | 2024-10-09 18:06 | ESCONSULT_ITS ---
<Statement entered by Enzo Birmingham DO - 10/10/24 15:49> Senior attestation: Patient was examined and case was reviewed with team including attending physician. Note reviewed, I agree with most of its contents and agree with the patient's care. In summary, patient is a 59 year old female with history of SLE, lupus nephritis s/p kidney transplant 2001, ESRD on HD (M/W), IDT2DM, antiphospholipid syndrome on warfarin, gout, mitral stenosis, atrial fibrillation, and valley fever who was admitted to [facility] medical floors for presyncope management and NSTEMI with cardiac catheterization planned. On 10/09 ICU team was consulted following a [employer] WORK[employer] for mentation changes, ICU was consulted for MAP ~60. Of note, patient also experienced fever and had elevated lactic acid levels. ICU team completed NICOM, patient was found to be fluid responsive, given 500 cc fluids. Given concern of impending vasopressor need, elevated lactic acid, and fever in patient without clear septic source, decision was made to transfer patient to ICU care. Will order CT abdomen/pelvis to assess for any abdominal infectious sources, broaden antibiotics to zosyn, and order culture of biliary and MATIAS drain contents. At this point in time, no need for vasopressors however will closely monitor blood pressure and initiate levophed if indicated. Enzo Birmingham DO PGY-3 <Statement entered by Kay Castillo MD - 10/10/24 14:43> I reviewed the resident?s note and agree with findings and plan as documented in the resident?s note. HPI Data of Consult Patient: new to practice Consult date: 10/09/24 Requesting Physician: Varinder Guzmán MD Admitting Provider: Randall Nguyễn MD Attending Provider: Kay Castillo MD Primary Care Provider: Ralf Ozuna MD Consult Narrative Reason for consult: Hypertension, fever, elevated lactic acid History of present illness: Ms. Vela is a 59-year-old female with past medical history of SLE, lupus nephritis status post kidney transplant 2019, end-stage renal disease on hemodialysis Monday/Monday, insulin-dependent type 2 diabetes mellitus, antiphospholipid antibody syndrome on warfarin, gout, mitral stenosis, atrial fibrillation on amiodarone, history of valley fever on lifelong posaconazole who presented to [facility] on 10/07/2024 with chief complaints of presyncope. Patient reports that she has chronic diarrhea since August 2024 after her partial cholecystectomy, was scheduled for dialysis in a.m., did not eat during the day reported injecting herself with her scheduled insulin 70/30 5 units the night before, reported that she was starting to see black and had the feeling of passing out. Patient presented to ED, glucose on arrival was 57 improved with juice and crackers. Patient was admitted for treatment and management of presyncope secondary to hypoglycemia. With the progression of hospital course patient had elevated troponins, cardiology was consulted due to concern of NSTEMI and was scheduled for cardiac catheterization on 10/10/23. Patient had rapid response called earlier today for acute change in patient's mental status, new onset fever with MAP in 60s, patient's antibiotic regimen widened to vancomycin and levofloxacin, ICU team was consulted. On assessment at bedside today patient has no complaints, has minimal right upper quadrant tenderness, patient reported that she was scheduled for ERCP this month with possible stent placement in bile duct and removal of bile drain and MATIAS drain. Patient was found to be fluid responsive on assessment via NICOM, otherwise patient had no complaints, mean arterial pressure around 60s on assessment, decision was made to upgrade patient further to intensive care unit for source identification and control of possible sepsis in setting of septic shock with elevated lactate. cc:: cc: Varinder Guzmán MD Review of Systems Review of Systems Narrative Review of Systems: ROS: -CONSTITUTIONAL: Denies weight loss, fever and chills. Positive for fatigue -HEENT: Denies changes in vision and hearing. -RESPIRATORY: Denies SOB and cough. -CV: Denies palpitations and Chest Pain. -GI: Denies abdominal pain, nausea, vomiting,constipation and positive for diarrhea. -: Denies dysuria and urinary frequency. -MSK: Denies myalgia and joint pain. -SKIN: Denies rash and pruritus. -NEUROLOGICAL: Denies headache and positive for pre-syncope. -PSYCHIATRIC: Denies recent changes in mood. Denies anxiety and depression. Past Medical History Past Medical History Comments PMH COMMENT: Past medical history: ? SLE ? Lupus nephritis ? ESRD on hemodialysis via right brachiobasilic fistula ? Insulin-dependent diabetes mellitus type 2 - Diabetic neuropathy ? Antiphospholipid antibody syndrome ? Gout ? Mitral stenosis ? Atrial fibrillation ? History of valley fever Medication list: ? Albuterol inhaler as needed ? Allopurinol 100 Mg p.o. daily ?Amiodarone 200 Mg p.o. daily ? Fluticasone nasal spray as needed ? Lasix 20 Mg p.o. twice daily ? Hydroxychloroquine 200 Mg p.o. twice daily ? Midodrine 10 Mg p.o. 3 times daily ? Pentoxifylline 400 Mg p.o. every afternoon - Posaconazole 400mg po Qday - Prednisone 5 mg po daily ? Pregabalin 100 Mg p.o. twice daily ? Tacrolimus 0.5 Mg p.o. daily ? Trelegy inhaler 1 puff p.o. at bedtime ? Warfarin 2.5 Mg p.o. every other day. Past surgical history: ? Tonsillectomy as a child ? Total abdominal hysterectomy secondary to menorrhagia 2002 - C5-7 cervical fusion 2010 ? Partial colectomy at [facility] 2015 ? Kidney transplant at [facility] 2019 - Partial cholecystectomy at [facility] April 2024 - MATIAS drain placement and removal of stent/ERCP August 2024 Allergies: Sulfa drugs - itching Augmentin - diarrhea Social history: Occupational History: Previously worked the [employer] ([place] Medically retired February 2012 Education Level: Graduated high school Marital Status: with 2 kids Tobacco use: Denies ETHO use: Denies Illicit drug use: Denies Social History Note: lives with . At baseline patient is wheelchair- bound but can stand with assistance. Exam Vital Signs Temp Pulse Resp BP Pulse Ox O2 Del Method O2 Flow Rate 97.6 F 70 22 H 95/50 L 90 L Nasal Cannula 2 10/09/24 16:00 10/09/24 16:00 10/09/24 16:00 10/09/24 16:00 10/09/24 16:00 10/09/24 15:04 10/09/24 15:04 Narrative Exam Physical Exam General: Awake and in no acute distress. Conversational and ill-appearing . HEENT: Normocephalic, atraumatic, mucous membranes dry. Heart: Irregular rate and rhythm, no murmurs. Lungs: Clear to auscultation with no wheezing or crackles. Abdomen: Soft, nondistended, mild tenderness noted right upper quadrant, Alcala sign negative, positive bowel sounds. ?No guarding or rebound tenderness. Neurologic: Alert and oriented x3, no gross neurological deficit, and patient able to move all 4 extremities. Extremities: No edema. Discoloration noted bilaterally legs, possibly secondary to venous stasis Skin: Stage I sacral ulcer, unstageable wound left buttock, biliary drain, MATIAS drain noted. Results Labs 10/09/24 14:11 10/09/24 14:11 Labs: Short CBC 10/09/24 10/09/24 Range/Units 04:50 14:11 WBC 7.6 15.9 H D (3.6-11.0) Thou/mm3 Hgb 10.1 L 10.7 L (12.0-16.0) g/dL Hct 34.6 L 36.2 (36.0-46.0) % Plt Count 186 185 (140-440) Thou/mm3 BMP 10/09/24 10/09/24 04:50 14:11 Sodium 136 134 L Potassium 4.3 D 4.9 D Chloride 98 96 L Carbon Dioxide 20.5 19.2 L BUN 32 H 35 H Creatinine 4.4 H* D 4.6 H* Glucose 67 L 106 D Calcium 8.9 8.7 Cardiac Enzymes 10/08/24 10/09/24 10/09/24 Range/Units 21:38 04:50 14:11 Troponin I 6.110 H* D 6.157 H* 5.057 H* D (0.0-0.045) ng/mL Liver Function 10/09/24 10/09/24 Range/Units 04:50 14:11 Total Bilirubin 0.7 0.9 (0.3-1.2) mg/dL AST 44 H 43 H (0-34) U/L ALT 20 21 (10-49) U/L Alkaline Phosphatase 139 H 145 H (46-116) U/L Albumin 3.5 3.6 (3.5-5.0) gm/dL ABG Interpretation ABG results: 10/09/24 10/09/24 14:05 14:30 ABG pH Cancelled 7.45 ABG pCO2 Cancelled 30 L ABG pO2 Cancelled 59 L* ABG HCO3 Cancelled 20 ABG O2 Saturation Cancelled 91 ABG Base Excess Cancelled -3 Quality Measures Quality Measures none Medications Home Medications and Allergies Home Medications ?Medication ?Instructions ?Recorded ?Confirmed ?Type albuterol sulfate 90 mcg/actuation 2 puff inhalation Q4HR PRN 08/12/23 10/07/24 History aerosol inhaler Shortness Of Breath allopurinol 100 mg tablet 100 mg PO DAILY 08/12/23 10/07/24 History fluticasone fur. 100 mcg-umeclid 1 inh inhalation HS 08/12/23 10/07/24 History 62.5 mcg-vilant 25 mcg inhalat.powder (Trelegy Ellipta) fluticasone propionate 50 2 spray intranasal DAILY PRN 08/12/23 10/07/24 History mcg/actuation nasal Shortness Of Breath Or Wheezing spray,suspension hydroxychloroquine 200 mg tablet 200 mg PO BID 08/12/23 10/07/24 History pentoxifylline 400 mg 400 mg PO QPM 08/12/23 10/07/24 History tablet,extended release prednisone 5 mg tablet 5 mg PO DAILY 08/12/23 10/07/24 History cranberry extract 500 mg capsule 500 mg PO DAILY 09/28/23 10/07/24 History furosemide 20 mg tablet (Lasix) 20 mg PO BID 02/08/24 10/07/24 History multivitamin,tx-minerals 1 tab PO DAILY 02/08/24 10/07/24 History posaconazole 100 mg tablet,delayed 400 mg PO QDAY 02/08/24 10/07/24 History release (Noxafil) pregabalin 100 mg capsule 100 mg PO BID 02/08/24 10/07/24 History midodrine 10 mg tablet 10 mg PO 3XD 10/07/24 10/07/24 History Allergies Allergy/AdvReac Type Severity Reaction Status Date / Time cefaclor Allergy Mild LIPS SWELL Verified 02/08/24 10:18 UP AND EYES sulfamethoxazole Allergy Mild Itching Verified 02/08/24 10:18 trimethoprim Allergy Mild Itching Verified 02/08/24 10:18 amoxicillin Allergy Unknown Diarrhea Verified 02/08/24 10:18 clavulanic acid Allergy Unknown Diarrhea Verified 02/08/24 10:18 Sulfa (Sulfonamide Allergy Unknown Swelling Verified 02/08/24 10:18 Antibiotics) Visit Medications Acetaminophen (Acetaminophen 325 Mg Tablet) 650 mg PO Q6H PRN PRN Reason: Fever >101.5 Stop: 11/06/24 22:20 Last Admin: 10/09/24 13:42 Dose: 650 mg Hydrocodone Bitart/Acetaminophen (Hydrocodone/Apap 5/325 Tablet) 1 tab PO Q4HR PRN PRN Reason: PAIN SCALE 4-10(Mod-Sev Stop: 10/13/24 12:13 Last Admin: 10/09/24 05:10 Dose: 1 tab Albuterol (Albuterol Rt 2.5 Mg/0.5 Ml Nebu) 2.5 mg INH TID [place] Stop: 11/07/24 07:44 Albuterol (Albuterol Rt 2.5 Mg/0.5 Ml Nebu) 2.5 mg INH Q4HRRT PRN PRN Reason: SOB or Wheeze Stop: 11/07/24 10:59 Allopurinol (Allopurinol 100 Mg Tablet) 100 mg PO QDAY [place] Stop: 11/07/24 08:59 Last Admin: 10/09/24 09:00 Dose: 100 mg Amiodarone HCl (Amiodarone Hcl 200 Mg Tablet) 200 mg PO QDAY [facility] Stop: 11/07/24 09:39 Last Admin: 10/09/24 09:00 Dose: 200 mg Atorvastatin Calcium (Atorvastatin Calcium 20 Mg Tablet) 80 mg PO HS [place] Stop: 11/07/24 20:59 Last Admin: 10/08/24 20:20 Dose: 80 mg Posaconazole 100 Mg Delayed Release Tablet 0 ea PO DAILY [place] Stop: 11/07/24 11:29 Last Admin: 10/09/24 09:01 Dose: 4 tablet Dextrose (Dextrose 50%-Water Inj 50 Ml Syringe) 25 ml IV Q15MIN PRN PRN Reason: BG 50-70 responsive npo pt Stop: 11/06/24 22:46 Dextrose (Dextrose 50%-Water Inj 50 Ml Syringe) 50 ml IV Q15MIN PRN PRN Reason: BG <50 OR BG <70 & pt unresponsive Stop: 11/06/24 22:46 Furosemide (Furosemide 20 Mg Tablet) 20 mg PO BID [place] Stop: 11/07/24 08:59 Last Admin: 10/08/24 09:30 Dose: 20 mg Glucagon (Glucagon Inj 1 Mg Vial) 1 mg IM Q15MIN PRN PRN Reason: BG <70, and no IV access Hydroxychloroquine Sulfate (Hydroxychloroquine 200 Mg Tablet) 200 mg PO BID [place] Stop: 10/15/24 08:59 Last Admin: 10/09/24 09:00 Dose: 200 mg Sodium Chloride (Ns) 500 mls @ 999 mls/hr IV .Q31M ONE Stop: 10/09/24 18:16 Ceftriaxone Sodium 2 gm/ (Sodium Chloride) 50 mls @ 100 mls/hr IV QDAY [facility] Stop: 10/16/24 17:59 Metronidazole (Flagyl 500 Mg Iv) 500 mg in 100 mls @ 200 mls/hr IV Q8HR [facility] Stop: 10/16/24 17:49 Midodrine (Midodrine 5 Mg Tablet) 10 mg PO TID [place] Stop: 11/06/24 22:44 Last Admin: 10/09/24 13:33 Dose: Not Given Pharmacy Consult (Pharmacy To Dose Warfarin) 1 each PO QDAY PRN PRN Reason: CONSULT Stop: 11/07/24 08:59 Prednisone (Prednisone 5 Mg Tablet) 5 mg PO QAM [facility] Stop: 11/07/24 08:59 Last Admin: 10/09/24 09:00 Dose: 5 mg Pregabalin (Pregabalin 50 Mg Capsule) 100 mg PO BID [place] Stop: 11/07/24 08:59 Last Admin: 10/09/24 09:00 Dose: 100 mg Sevelamer Carbonate (Sevelamer Carbonate 800 Mg Tablet) 800 mg PO TIDWM [facility] Stop: 11/08/24 11:59 Last Admin: 10/09/24 17:34 Dose: 800 mg Sodium Chloride (Sodium Chloride Rt Arlen 0.9% 3 Ml Nebu) 3 ml INH PRN PRN PRN Reason: SOLN Stop: 11/07/24 07:37 Tacrolimus (Tacrolimus 0.5 Mg Capsule (Non-Formulary)) 0.5 mg PO TUTHSA [facility] Stop: 11/07/24 12:59 Last Admin: 10/08/24 13:11 Dose: 0.5 mg Discontinued Medications Acetaminophen (Acetaminophen Supp 650 Mg Supp) 650 mg NC X1 ONE Stop: 10/09/24 13:54 Last Admin: 10/09/24 14:09 Dose: 650 mg Amiodarone HCl (Amiodarone Hcl 200 Mg Tablet) 200 mg PO QDAY [facility] Stop: 11/07/24 08:59 Amiodarone HCl (Amiodarone Hcl 200 Mg Tablet) 400 mg PO 1XD [facility] Stop: 11/07/24 07:29 Amiodarone HCl (Amiodarone Hcl 200 Mg Tablet) 400 mg PO QDAY [facility] Stop: 11/07/24 08:59 Last Admin: 10/08/24 09:42 Dose: Not Given Aspirin (Aspirin Ec 81 Mg Tabec) 81 mg PO QDAY [facility] Stop: 11/07/24 10:29 Dextrose (Dextrose 50%-Water Inj 50 Ml Syringe) 25 ml IV X1 ONE Stop: 10/07/24 20:51 Last Admin: 10/07/24 20:53 Dose: 25 ml Diltiazem HCl (Diltiazem Inj 5 Mg/Ml Vial 5 Ml) 10 mg IV X1 ONE Stop: 10/07/24 20:45 Last Admin: 10/07/24 20:54 Dose: Not Given Hydroxyzine HCl (Hydroxyzine Hcl 10 Mg Tablet) 10 mg PO X1 ONE Stop: 10/08/24 04:51 Last Admin: 10/08/24 05:47 Dose: Not Given Hydroxyzine HCl (Hydroxyzine Hcl 25 Mg Tablet) 12.5 mg PO X1 ONE Stop: 10/08/24 05:46 Last Admin: 10/08/24 05:39 Dose: 12.5 mg Sodium Chloride (Ns) 500 mls @ 999 mls/hr IV .Q31M ONE Stop: 10/07/24 21:10 Last Admin: 10/07/24 20:58 Dose: Not Given Lactated Ringer's (Lactated Ringers) 500 mls @ 999 mls/hr IV .Q31M ONE Stop: 10/07/24 21:15 Last Admin: 10/07/24 20:58 Dose: Not Given Sodium Chloride (Ns) 1,000 mls @ 40 mls/hr IV .Q24H [facility] Stop: 10/08/24 20:59 Last Admin: 10/07/24 20:59 Dose: 40 mls/hr Acetaminophen (Ofirmev Inj) 1,000 mg in 100 mls @ 250 mls/hr IV X1 ONE Stop: 10/09/24 14:13 Cefepime HCl 1 gm/ Sodium (Chloride) 50 mls @ 100 mls/hr IV Q12HR [facility] Stop: 10/16/24 13:54 Sodium Chloride (Ns) 250 mls @ 100 mls/hr IV .Q2H30M ONE Stop: 10/09/24 16:25 Last Admin: 10/09/24 14:09 Dose: 100 mls/hr Vancomycin/Sodium Chloride (Vancomycin/Ns 1 Gm Ivpb) 200 mls @ 120 mls/hr IV X1 ONE Stop: 10/09/24 15:54 Last Admin: 10/09/24 14:15 Dose: 120 mls/hr Levofloxacin/Dextrose (Levaquin Ivpb) 750 mg in 150 mls @ 100 mls/hr IV X1 ONE Stop: 10/09/24 15:59 Last Admin: 10/09/24 15:31 Dose: 100 mls/hr Levofloxacin/Dextrose (Levaquin Ivpb) 500 mg in 100 mls @ 100 mls/hr IV Q48H [facility] Stop: 10/18/24 08:59 Magnesium Oxide (Magnesium Oxide 400 Mg Tablet) 400 mg PO X1 ONE Stop: 10/08/24 09:31 Last Admin: 10/08/24 09:31 Dose: 400 mg Pharmacy Consult (Vancomycin Pharmacy To Dose 1 Each Each) 1 each IV QDAY PRN PRN Reason: PROTOCOL Stop: 11/08/24 13:59 Potassium Chloride (Potassium Chloride 20 Meq Tabcr) 20 meq PO X1 ONE Stop: 10/07/24 22:53 Last Admin: 10/07/24 23:26 Dose: 20 meq Potassium Chloride (Potassium Chloride 20 Meq Tabcr) 40 meq PO X1 ONE Stop: 10/08/24 07:22 Last Admin: 10/08/24 10:03 Dose: Not Given Potassium Chloride (Potassium Chloride 20 Meq Tabcr) 20 meq PO X1 ONE Stop: 10/08/24 10:29 Last Admin: 10/08/24 12:32 Dose: 20 meq Pregabalin (Pregabalin 25 Mg Capsule) 100 mg PO BID [facility] Stop: 11/07/24 08:59 Last Admin: 10/08/24 09:29 Dose: 100 mg Warfarin Sodium (Warfarin 1 Mg Tablet) 1 mg PO 1200 [facility] Stop: 10/09/24 12:01 Assessment & Plan Plan Assessment and Plan: Summary: Ms. Vela is a 59-year-old female with past medical history of SLE, lupus nephritis status post kidney transplant 2019, end-stage renal disease on hemodialysis Monday/Monday, insulin-dependent type 2 diabetes mellitus, antiphospholipid antibody syndrome on warfarin, gout, mitral stenosis, atrial fibrillation on amiodarone, history of valley fever on lifelong posaconazole who presented to [facility] on 10/07/2024 with chief complaints of presyncope. Patient admitted for further workup, upgraded to intensive care unit on 10/09/2024 due to concern of suspicion of septic shock, no source. Neurological Patient is alert oriented x 3, stable. Cardiology #Shock Differential diagnosis: Distributive shock (high suspicion of septic shock, source unidentified, patient is immunocompromised status post renal transplant less likely neurogenic/anaphylactic) Cardiogenic shock (elevated troponin, echo shows mild hypokinesis inferior/lateral/posterior wall, no EKG changes, chest pain, bedside echo shows good pumping effect) Ruled out hypovolemic shock (patient does have poor p.o. intake, no blood loss, acute volume loss noted), obstructive shock (no significant respiratory distress noted) Diagnostic workup: Lactate 4.7, patient has fevers, fmax 102.3, relatively hypotensive compared to baseline, elevated WBC count Bedside NICOM assessment shows 31% SVI, patient fluid responsive Patient has chronic indwelling drains, biliary and MATIAS drain as possible source of infection, was scheduled for repeat ERCP with stent placement this month, possible source Treatment: -Patient will be given 500 cc bolus of NS -Patient will be started on IV Zosyn (10/09- -patient was given IV levofloxacin and vancomycin (10/09-10/09) -Continue home dose midodrine 10 three times daily -Will start patient on IV pressors if needed -Hold tacrolimus with concern of septic shock Follow-up: -Ordered CT abdomen pelvis with contrast -Ordered culture of biliary drain and MATIAS drain -Monitor for fevers # NSTEMI Differential diagnosis: Demand ischemia vs NSTEMI type I Diagnostic workup: On admission patient denied any chest pain shortness of breath or any other atypical symptoms, presented with presyncope due to hypoglycemia On admission EKG shows A-fib with RVR, Patient's troponin peaked at 7.493 and is downtrending. Echo showed mild hypokinesis of inferior lateral and posterior wall, EF 45%, severe LA dilatation, severe degenerative mitral valve annulus calcification with moderate MV stenosis. EF decreased from 55% to 45% since last January 2024. Cardiology was consulted, patient was scheduled for cardiac cath on Treatment: -Will monitor for chest pain -Cardiology is consulted, no new recommendations currently Follow-up: -Monitor vitals closely #HFmEF EF 45% #History of atrial fibrillation #History of mitral stenosis # Concern of QTc prolongation Diagnostic workup: Patient currently does not look fluid overloaded, he is on 2 L nasal cannula saturating well ECHO 10/08: Normal LV size. with Mild systolic dysfunction. Mild hypokinesis inferior lateral and posterior wall. Estimated EF 45% Mild RV dilatation. Mild RV dysfunction. Estimated RVSP 73mmHg. Severe LA dilatation. Severe degegenerative mitral valve annulus calcification with MODERATE mitral valve stenosis, mean gradient 10mmHg. Pressure 1/2 time 105 with mitral valve area 2.1 sq cm by this method Modearte mitral regurgitation Moderate TR, Mild pulmic and mild aortic valve regurgitation. IVC dilated. EKG 10/09 shows QTc 515, patient is on amiodarone 200 daily, posaconazole 400 mg daily and hydroxychloroquine 200 mg twice daily Treatment: -Will hold Lasix for now -Repeat EKG in a.m. -Will keep potassium more than 4, magnesium more than 2 -Will hold oral amiodarone in a.m. due to concern of QTc prolongation Follow-up: -Follow repeat EKG -Follow telemetry consider amiodarone if patient has A-fib RVR Pulmonary Stable, patient saturating more than 95 on 2 L nasal cannula Gastrointestinal #Chronic diarrhea # Status post partial cholecystectomy, biliary and MATIAS drain intact Differential diagnosis: Patient reports chronic diarrhea since biliary drain was placed, reports was placed in August Diagnostic workup: Minimal abdominal tenderness at bedside, some in right upper quadrant Currently has no complaints of diarrhea Treatment/Follow-up:: -Ordered CT abdomen pelvis -Will monitor for diarrhea Renal/Genitourinary # End-stage renal disease # Status post renal transplant # History of SLE with lupus nephritis status postrenal transplant on immunosuppression Differential diagnosis: Chronic transplant rejection Diagnostic workup: Patient is on dialysis outpatient Monday Abdominal ultrasound shows Cyst in transplant kidney,Atrophic [place] kidneys, No hydronephrosis of the transplant kidney Treatment: -Will continue with inpatient dialysis -Avoid nephrotoxic agents Follow-up: -Monitor closely urine output Endocrine #Type 2 diabetes mellitus, insulin-dependent #Presyncope likely secondary to #Hypoglycemia in the setting of insulin use and poor oral intake Differential diagnosis: Improved diabetes in setting of end-stage renal disease Diagnostic workup: Hemoglobin A1c 3.9 Patient's fingerstick blood glucose low Treatment/Follow-up: -Hold insulin -Monitor fingerstick blood glucose Hematology #History of antiphospholipid antibody syndrome (on Coumadin) #History of gout Diagnostic workup: Patient is taking allopurinol, hydroxychloroquine, tacrolimus, and prednisone. Goal INR for antiphospholipid syndrome it is 2-3. Treatment: Patient was scheduled for cardiac cath, was holding warfarin for goal INR less than 2 We will continue to hold warfarin for possible intervention Follow-up: -Follow INR in a.m. -Patient has paroxysmal A-fib, will consider heparin drip if needed Infectious Disease #Valley fever, by history Patient is on lifelong posaconazole by history Will resume home medication Integumentary/Musculoskeletal #Stage I sacral ulcer #Unstageable ulcer, left hip Wound care as needed Referral to wound care DVT prophylaxis: Therapeutic INR GI prophylaxis: Not indicated Diet: Renal/dysphagia 3 Lines: Peripheral IV Code status: Full code Case discussed with Attending Dr. Castillo and Dr. Birmingham PGY3. Monse Diana PGY1 Disclaimer: This note was dictated by speech recognition. Minor errors in rug hooker hand may be present due to voice recognition software.
[2024-10-09 18:10] LABS: Lipase 20 U/L (12-53)
[2024-10-09] MEDS: SODIUM CHLORIDE 0.9% 500 ML 500 ML 999 ML IV (18:21)
[2024-10-09] MEDS: PIPER/TAZO 3.375 GM 50 ML IV (19:00)
[2024-10-09] MEDS: Magnesium Sulfate 2 GM Ivpb 2 GM/50 ML BAG IV (20:01)
[2024-10-09 20:54] LABS: Reflex Lactate? Y
[2024-10-09] MEDS: ATORVASTATIN CALCIUM 20 MG TABLET PO (21:10)
[2024-10-09 21:27] LABS: Lactic Acid, 3 HR 2.9 mMol/L (0.4-2.0)
[2024-10-09] MEDS: ALBUTEROL RT 2.5 MG/0.5 ML NEBU INH (23:07)
[2024-10-10] VITALS (158 sets, daily range): BP systolic 42–177; BP diastolic 14–140; PULSE 62–85; RESP 7–28; TEMP 36.4–37.7; O2SAT 77–100
--- NOTE | 2024-10-10 05:46 | EKG_ITS ---
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: CHIDI : [id number] Requested By: Monse Diana Order Number: [id number] Reading MD: Monse Diana Measurements Intervals [place] Rate: 68 P: IA: QRS: 29 QRSD: 117 T: 128 QT: 357 QTc: 381 Interpretive Statements SUPRAVENTRICULAR RHYTHM LOW QRS VOLTAGE IN EXTREMITY LEADS SEPTAL MYOCARDIAL INFARCTION , OF INDETERMINATE AGE ST DEPRESSION, CONSIDER SUBENDOCARDIAL INJURY Compared to ECG 10/09/2024 13:58:57 Supraventricular rhythm now present Low QRS voltage now present Myocardial infarct finding now present ST (T wave) deviation now present Left-axis deviation no longer present Left bundle-branch block no longer present /store/S0/[id number]
[2024-10-10 05:53] LABS: Basophils # (Auto) 0.1 Thou/mm3 (0.0-0.2); Basophils % (Auto) 0 % (0-2.5); Eosinophils # (Auto) 0.1 Thou/mm3 (0.0-0.5); Eosinophils % (Auto) 1 % (0-10); Hematocrit 30.3 % (36.0-46.0); Immature Granulocytes % (Auto) 1 % (0-0); Immature Granulocytes Auto 0.07 Thou/mm3 (0.00-0.00); Lymphocytes # (Auto) 0.5 Thou/mm3 (1.0-4.8); Lymphocytes % (Auto) 4 % (10-50); Mean Corpuscular HGB Conc 29.7 g/dl (31.0-37.0); Mean Corpuscular Hemoglobin 28.8 pg (25.0-35.0); Mean Corpuscular Volume 97 fL (80-100); Monocytes # (Auto) 0.4 Thou/mm3 (0.0-0.8); Monocytes % (Auto) 3 % (0-12); Neutrophils # (Auto) 11.5 Thou/mm3 (1.8-7.7); Neutrophils % (Auto) 92 % (37-80); Nucleated Red Blood Cell % 0 /100 WBC (0); Platelet Count 164 Thou/mm3 (140-440); RDW Standard Deviation 64.9 fL (36.4-46.3); Red Blood Count 3.12 Miln/mm3 (4.00-5.20); White Blood Count 12.6 Thou/mm3 (3.6-11.0)
[2024-10-10] MEDS: PIPER/TAZO 3.375 GM 50 ML IV ×2 (06:05→18:23)
[2024-10-10] MEDS: MIDODRINE 5 MG TABLET 10 MG PO ×3 (06:05→21:38)
[2024-10-10 06:13] LABS: INR 2.4 (0.9-1.3); Partial Thromboplastin Time 39.6 Seconds (22.0-36.0); Prothrombin Time 24.7 Seconds (9.0-12.2)
[2024-10-10 06:15] LABS: Alanine Aminotransferase 17 U/L (10-49); Albumin, Serum 3.2 gm/dL (3.5-5.0); Albumin/Globulin Ratio 1.2 (1.2-2.2); Alkaline Phosphatase 126 U/L (46-116); Anion Gap 14 (7-16); Aspartate Amino Transferase 28 U/L (0-34); BUN/Creatinine Ratio 9 Ratio (12-20); Bilirubin,Total 0.9 mg/dL (0.3-1.2); Blood Urea Nitrogen 44 mg/dL (9-23); Calcium 8.6 mg/dL (8.3-10.6); Calcium (Corrected) 9.2 mg/dL (8.5-10.1); Carbon Dioxide 23.3 mMol/L (20.0-31.0); Chloride 98 mMol/L (98-107); Estimated Creatinine Clearance 11.1 mL/min (>60); Globulin 2.7 gm/dL (2.3-3.5); Glucose 72 mg/dL (74-106); Magnesium 2.1 mg/dL (1.6-2.6); Osmolality,Calculated 280 (275-295); Phosphorous 8.3 mg/dL (2.4-5.1); Potassium 4.4 mMol/L (3.4-5.1); Sodium 135 mMol/L (136-145); Total Protein 5.9 gm/dL (5.7-8.2); Vancomycin,Random 17.1 mcg/mL; eGFR 10 See Note
[2024-10-10] MEDS: HYDROcodone/APAP 5/325 TABLET 1 TAB PO ×4 (06:30→21:37)
[2024-10-10] MEDS: SEVELAMER CARBONATE 800 MG TABLET PO ×2 (07:42→12:25)
--- NOTE | 2024-10-10 08:50 | ESPR_ITS ---
Documentation for date of: 10/10/24 Subjective Subjective Interval history: Ms. 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 Since partial cholecystectomy in 2023, she has had chronic diarrhea. Thus, she did not meet the entire day to avoid having diarrhea. She took her scheduled insulin and afterwards started to have changes in her vision and felt like she had to faint. called EMS, presented to the ED, and blood glucose was 57. Recheck was 99 after juice and crackers. She follows with PCP Dr. Ozuna, director of plant operations in [place], and churn operator Dr. Nelson. Currently on warfarin 2.5 mg p.o. every other day for her antiphospholipid antibody syndrome. Given that patient is ESRD, nephrology was consulted, with last dialysis session being Monday morning, 10/07. In ED, Hgb 8.9, K 2.9, BUN 24, Cr 3.0, glucose 57, PT 31, PTT 38, INR 3.2, troponin 4.6, BNP 3200 CXR: Skin markings, no signs of pulmonary edema or effusion. EKG: A-fib with HR 103. Given 25 cc of D50. 10/08: Patient seen and examined at bedside with family present. No acute overnight events. Patient has been on dialysis since March 2024 despite having transplant in 2019. Patient received dialysis today morning, and she does not seem to be volume overloaded. Potassium noted to be low and has been replenished by primary team. Labs and orders reviewed. 10/09: Patient seen and examined at bedside with family present. No acute overnight events. Cardiology consulted for further management of elevated troponins, with possible angiogram on or Monday, depending on INR. Echo showed mild hypokinesis of inferior lateral and posterior khan. EF 45%. RVSP 73 mmHg with mild RV dilatation. Severe left atrial dilatation seen. Severe degenerative mitral valve annulus calcification with moderate stenosis. Moderate MR, moderate TR. Renal function tolerable and can continue M, F regimen so long as patient remains in house. 10/10: Patient seen and examined at bedside in ICU. Rapid response called on 10/09 at 1:45 PM for acute change in mental status with new onset fevers (102.3 ?F) and MAP less than 65. Sepsis alert called with suspected source being partial cholecystectomy from 04/2024. Given that patient BP did not respond to IVF, upgraded to ICU for further management. Repeat labs significant for WBC increase from 7.6 to 15.9. ABG showed pH 7.45, pCO2 30, pO2 59. Lactate of 4.7. CT A/P: Cholecystostomy catheter in satisfactory position without signs of abscesses or other explicit inflammatory/infectious changes. Exam Vital Signs Temp Pulse Resp BP Pulse Ox O2 Del Method O2 Flow Rate 97.8 F 72 18 112/72 95 Nasal Cannula 2 10/10/24 07:58 10/10/24 08:30 10/10/24 07:58 10/10/24 08:22 10/10/24 07:58 10/09/24 15:04 10/10/24 07:58 Narrative Exam General: frail and weak appearing, AOx3, no acute distress, able to speak full sentences HEENT: NC/AT, mucous membranes moist, bilateral sclera anicteric Cardiovascular: irregular rhythm, S1/S2 present, no murmurs appreciated Pulmonary: clear to auscultation bilaterally, no rales/rhonchi/wheezes Abdominal: soft, non-tender, non-distended, no rebound/guarding, normal bowel sounds present Musculoskeletal: normal ROM, no peripheral edema Skin: cholecystostomy tube present Neuro: CN II-XII intact, no focal deficits Objective Labs 10/10/24 18:28 10/10/24 17:29 Labs: Laboratory Results - last 24 hr 10/09/24 10/09/24 10/09/24 14:05 14:11 14:30 WBC 15.9 H D RBC 3.70 L Hgb 10.7 L Hct 36.2 MCV 98 MCH 28.9 MCHC 29.6 L RDW Std Deviation 67.9 H Plt Count 185 Neut % (Auto) 92 H Lymph % (Auto) 3 L Greeley % (Auto) 4 Eos % (Auto) 0 Baso % (Auto) 0 Neut # (Auto) 14.6 H Lymph # (Auto) 0.5 L [place] # (Auto) 0.6 Eos # (Auto) 0.0 Baso # (Auto) 0.1 Immature Gran # (Auto) 0.08 H Absolute Nucleated RBC 0.02 H Immature Gran % 1 H Nucleated RBC % 0 PT INR APTT Puncture Site Cancelled Right Radial ABG pH Cancelled 7.45 ABG pCO2 Cancelled 30 L ABG pO2 Cancelled 59 L* ABG HCO3 Cancelled 20 ABG O2 Saturation Cancelled 91 ABG Base Excess Cancelled -3 Oxygen Liter Flow Cancelled 2 FiO2 Cancelled 21 Sodium 134 L Potassium 4.9 D Chloride 96 L Carbon Dioxide 19.2 L Anion Gap 19 H BUN 35 H Creatinine 4.6 H* Estim Creat Clear Calc 12.1 L eGFR 11 L* BUN/Creatinine Ratio 8 L Glucose 106 D Calculated Osmolality 276 Lactic Acid 4.7 H* Calcium 8.7 Corrected Calcium 9.0 Phosphorus 7.3 H Magnesium 2.0 Total Bilirubin 0.9 AST 43 H ALT 21 Alkaline Phosphatase 145 H Troponin I 5.057 H* D Total Protein 6.6 Albumin 3.6 Globulin 3.0 Albumin/Globulin Ratio 1.2 Lipase 20 Random Vancomycin 10/09/24 10/09/24 10/10/24 17:49 21:15 05:28 WBC 12.6 H RBC 3.12 L Hgb 9.0 L Hct 30.3 L MCV 97 MCH 28.8 MCHC 29.7 L RDW Std Deviation 64.9 H Plt Count 164 Neut % (Auto) 92 H Lymph % (Auto) 4 L [place] % (Auto) 3 Eos % (Auto) 1 Baso % (Auto) 0 Neut # (Auto) 11.5 H Lymph # (Auto) 0.5 L [place] # (Auto) 0.4 Eos # (Auto) 0.1 Baso # (Auto) 0.1 Immature Gran # (Auto) 0.07 H Absolute Nucleated RBC 0.00 Immature Gran % 1 H Nucleated RBC % 0 PT 24.7 H D INR 2.4 H APTT 39.6 H Puncture Site ABG pH ABG pCO2 ABG pO2 ABG HCO3 ABG O2 Saturation ABG Base Excess Oxygen Liter Flow FiO2 Sodium 135 L Potassium 4.4 D Chloride 98 Carbon Dioxide 23.3 Anion Gap 14 BUN 44 H Creatinine 5.0 H* Estim Creat Clear Calc 11.1 L eGFR 10 L* BUN/Creatinine Ratio 9 L Glucose 72 L Calculated Osmolality 280 Lactic Acid 3.3 H 2.9 H Calcium 8.6 Corrected Calcium 9.2 Phosphorus 8.3 H Magnesium 2.1 Total Bilirubin 0.9 AST 28 ALT 17 Alkaline Phosphatase 126 H Troponin I Total Protein 5.9 Albumin 3.2 L Globulin 2.7 Albumin/Globulin Ratio 1.2 Lipase Random Vancomycin 17.1 ABG Interpretation ABG results: 10/09/24 10/09/24 14:05 14:30 ABG pH Cancelled 7.45 ABG pCO2 Cancelled 30 L ABG pO2 Cancelled 59 L* ABG HCO3 Cancelled 20 ABG O2 Saturation Cancelled 91 ABG Base Excess Cancelled -3 Quality Measures Quality Measures none Assessment & Plan Assessment Current Active Medications: Generic Name Dose Route Start Last Admin Trade Name Freq PRN Reason Stop Dose Admin Acetaminophen 650 mg 10/07/24 22:21 10/09/24 13:42 Acetaminophen 325 Mg Tablet PO 11/06/24 22:20 650 mg Q6H PRN Administration Fever >101.5 Hydrocodone Bitart/Acetaminophen 1 tab 10/08/24 12:14 10/10/24 06:30 Hydrocodone/Apap 5/325 Tablet PO 10/13/24 12:13 1 tab Q4HR PRN Administration PAIN SCALE 4-10(Mod-Sev Albuterol 2.5 mg 10/08/24 07:45 10/09/24 23:07 Albuterol Rt 2.5 Mg/0.5 Ml Nebu INH 11/07/24 07:44 2.5 mg TID WINSTON Administration Albuterol 2.5 mg 10/08/24 07:38 Albuterol Rt 2.5 Mg/0.5 Ml Nebu INH 11/07/24 10:59 Q4HRRT PRN SOB or Wheeze Allopurinol 100 mg 10/08/24 09:00 10/09/24 09:00 Allopurinol 100 Mg Tablet PO 11/07/24 08:59 100 mg QDAY WINSTON Administration Amiodarone HCl 200 mg 10/10/24 09:00 Amiodarone Hcl 200 Mg Tablet PO 11/09/24 08:59 QDAY W[place] Atorvastatin Calcium 20 mg 10/09/24 21:00 10/09/24 21:10 Atorvastatin Calcium 20 Mg Tablet PO 11/08/24 20:59 20 mg HS WINSTON Administration Posaconazole 100 Mg 0 ea 10/08/24 11:30 10/09/24 09:01 Delayed Release PO 11/07/24 11:29 4 tablet Tablet DAILY WINSTON Administration Dextrose 25 ml 10/07/24 22:47 Dextrose 50%-Water Inj 50 Ml Syringe IV 11/06/24 22:46 Q15MIN PRN BG 50-70 responsive npo pt Dextrose 50 ml 10/07/24 22:47 Dextrose 50%-Water Inj 50 Ml Syringe IV 11/06/24 22:46 Q15MIN PRN BG <50 OR BG <70 & pt unresponsive Furosemide 20 mg 10/08/24 09:00 10/08/24 09:30 Furosemide 20 Mg Tablet PO 11/07/24 08:59 20 mg BID WINSTON Administration Glucagon 1 mg 10/07/24 22:47 Glucagon Inj 1 Mg Vial IM Q15MIN PRN BG <70, and no IV access Hydroxychloroquine Sulfate 200 mg 10/08/24 09:00 10/09/24 21:10 Hydroxychloroquine 200 Mg Tablet PO 10/15/24 08:59 200 mg BID WINSTON Administration Piperacillin/Tazobactam/Dextrose 50 mls @ 12.5 mls/hr 10/10/24 06:00 10/10/24 06:05 Zosyn IV 10/17/24 05:59 12.5 mls/hr Q12H WINSTON Administration Norepinephrine Bitartrate 16 mg in 250 mls @ 2.658 mls/hr 10/09/24 19:33 Levophed In Ns 16mg/250ml IV 11/08/24 19:32 .Q24H PRN PER PROTOCOL Protocol 0.05 MCG/KG/MIN Albumin Human 25 gm in 100 mls @ 100 mls/min 10/10/24 08:27 Albuminar-25 Ivpb IV PRN PRN DIALYSIS Midodrine 10 mg 10/07/24 22:45 10/10/24 06:05 Midodrine 5 Mg Tablet PO 11/06/24 22:44 10 mg TID WINSTON Administration Pharmacy Consult 1 each 10/08/24 09:00 Pharmacy To Dose Warfarin PO 11/07/24 08:59 QDAY PRN CONSULT Pharmacy Consult 1 each 10/09/24 20:57 Pharmacy Renal Dose Adjustment 1 Ea XX 11/08/24 20:56 PRN PRN CONSULT Prednisone 5 mg 10/08/24 09:00 10/09/24 09:00 Prednisone 5 Mg Tablet PO 11/07/24 08:59 5 mg QAM W[place]ON Administration Pregabalin 75 mg 10/10/24 09:00 Pregabalin 75 Mg Capsule PO 11/09/24 08:59 QDAY W[place] Sevelamer Carbonate 800 mg 10/09/24 12:00 10/10/24 07:42 Sevelamer Carbonate 800 Mg Tablet PO 11/08/24 11:59 800 mg TIDWM W[place]ON Administration Sodium Chloride 3 ml 10/08/24 07:38 Sodium Chloride Rt Arlen 0.9% 3 Ml Nebu INH 11/07/24 07:37 PRN PRN SOLN Tacrolimus 0.5 mg 10/08/24 13:00 10/08/24 13:11 Tacrolimus 0.5 Mg Capsule (Non-Formulary) PO 11/07/24 12:59 0.5 mg TUTHSA WINSTON Administration Plan Elma Vela is a 59-year-old female with medical history of SLE, lupus nephritis status post kidney transplant in 2019, ESRD (HD on M, F), antiphospholipid antibody syndrome (warfarin), A-fib (on amiodarone), 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 She follows with PCP Dr. Ozuna, director of plant operations in [place], and churn operator Dr. Nelson. Currently on warfarin 2.5 mg p.o. every other day for her antiphospholipid antibody syndrome. Given that patient is ESRD, nephrology was consulted, with last dialysis session being Monday morning, 10/07. #ESRD on hemodialysis M, F #Lupus nephritis status post kidney transplant in 2019 Rapid response called on 10/09 at 1:45 PM for acute change in mental status with new onset fevers (102.3 ?F) and MAP less than 65. Sepsis alert called with suspected source being partial cholecystectomy from 04/2024. Given that patient BP did not respond to IVF, upgraded to ICU for further management. Repeat labs significant for WBC increase from 7.6 to 15.9. ABG showed pH 7.45, pCO2 30, pO2 59. Lactate of 4.7. CT A/P: Cholecystostomy catheter in satisfactory position without signs of abscesses or other explicit inflammatory/infectious changes. ? Planned for hemodialysis today, as patient received contrast for CT A/P ? Renally dose medications ? Avoid nephrotoxic agents #Presyncope secondary to hypoglycemia- on IVF #Symptomatic hypoglycemia #HFpEF 55 to 60%) #Paroxysmal A-fib on amiodarone #Mitral stenosis #SLE #Antiphospholipid antibody syndrome, on warfarin #Type 2 diabetes mellitus, insulin-dependent #Gout #Valley fever #Hypokalemia ? Continue management per primary team ----- Plan discussed with attending physician Dr. Demetrice Hussein MD PGY-1 Internal Medicine Attending Provider Attestation/Addendum Patient seen and examined with resident physician Dr. Walker. Note reviewed, agree with findings and recommendations. Patient currently seen on dialysis. Tolerating dialysis without any problems. Hemodialysis for 3 hours, 2K, ultrafiltration 0 L, Epogen 6000, no heparin ordered. Plan of care discussed with the dialysis nurse. Please see dialysis flowsheet for further details. Patient moved to ICU for hypotension and sepsis. Currently on pressors. Creatinine slightly elevated. Had a CT abdomen with IV contrast. Decided to give her extra session today. Plan of care discussed with ICU team
--- NOTE | 2024-10-10 08:51 | PC.NURSE ---
unable to get bp despite mult. attempos, pt remained AAOX3 throughout
[2024-10-10] MEDS: EPOETIN ALFA-EPBX INJ 10,000 UNIT/ML VIAL (ESRD) 10000 UNIT SC (09:21)
--- NOTE | 2024-10-10 10:59 | PC.NURSE ---
Unable to get bp reading despite mult. attempts. PT REMAINS AAOX3 AND DENIES ALL S/S OF HYPOTENSION, WILL CON. TO MONITOR
[2024-10-10] MEDS: predniSONE 5 MG TABLET PO (12:23)
[2024-10-10] MEDS: allopurinoL 100 MG TABLET PO (12:23)
[2024-10-10] MEDS: HYDROXYCHLOROQUINE 200 MG TABLET PO ×2 (12:24→21:38)
[2024-10-10] MEDS: PREGABALIN 75 MG CAPSULE PO (12:24)
[2024-10-10] MEDS: POSACONAZOLE 100 MG PO (12:25)
--- NOTE | 2024-10-10 13:31 | PC.SS ---
Patient is receiving dialysis session today. Patient is established with outpatient dialysis, [facility].
--- NOTE | 2024-10-10 13:39 | ESPR_ITS ---
<Statement entered by Kay Castillo MD - 10/11/24 16:04> TOTAL CC TIME:65 MIN I saw and evaluated the patient. I reviewed the resident?s note and agree with findings and plan as documented in the resident?s note. Upon my evaluation, this patient had a high probability of imminent or life- threatening deterioration due to septic shock which required my direct attention, intervention, and personal management. This time is exclusive of time spent on procedures, which are documented separately if performed. Patient's case was reviewed at bedside with both daughters in attendance and the patient's over the phone as well as with the medical team. The decision was made to keep her in the ICU due to intermittent hypotension. Fevers have resolved. Although the patient has a past history of hypotension on midodrine, her general trend has been lower than baseline. This is also confounded by a blood pressure cuff location that has been changing based off her IV sites. We are currently measuring from the right thigh. She he does have abdominal pain but she has pain most any location subjected to a physical exam. Some of this may be referred pain from right lower lobe pneumonia although I am concerned about complications related to her complicated cholecystitis history. The cholecystostomy tube has been draining. CT imaging was not particularly helpful at identifying a new finding concerning for complication either related to the cholecystostomy tube or otherwise. The prior fluid collection is decreasing in size as well. Bedside echo identifies dysfunctional right ventricle and significant LV wall thickness per hour ICU evaluation If she remains hypotensive we will start Levophed place an arterial line and central venous catheter Continue Zosyn The requested the patient be transferred back to [facility] and we explained to him that we would make our best efforts at getting her transferred <Statement entered by Enzo Birmingham DO - 10/10/24 21:30> Senior attestation: Patient was examined and case was reviewed with team including attending physician. Note reviewed, I agree with most of its contents and agree with the patient's care. Overnight patient did not require vasopressors, MAPs noted to be > 65 today, downgrade was initially planned however by late afternoon patient developed hypotension with MAP < 65 on various BP reads. Difficulty assessing blood pressure, cuff size and location changed however minimal improvement on blood pressure readings. On multiple occasions, BP machine was unable to report a value. IVC was assessed bedside, does not reflect fluid responsiveness at this time. Decision was made to begin levophed vasopressor support and insert arterial and central lines. Of note, family has requested transfer to [facility] for continued care, have been informed there is no indication for higher level of care at this time and the transfer may be rejected by insurance company. [facility] transfer team aware, will seek [facility] transfer if possible. Patient will not be downgraded to medical floors at this time, remains in ICU for vasopressor support, will wean as tolerated. Enzo Birmingham, PGY-3 Documentation for date of: 10/10/24 Subjective Subjective Interval history: Ms. 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 Patient reports that she has chronic diarrhea since August 2024 after her partial cholecystectomy, was scheduled for dialysis in a.m., did not eat during the day reported injecting herself with her scheduled insulin 70/30 5 units the night before, reported that she was starting to see black and had the feeling of passing out. Patient presented to ED, glucose on arrival was 57 improved with juice and crackers. Patient was admitted for treatment and management of presyncope secondary to hypoglycemia. With the progression of hospital course patient had elevated troponins, cardiology was consulted due to concern of NSTEMI and was scheduled for cardiac catheterization on 10/10/23. Patient had rapid response called earlier today for acute change in patient's mental status, new onset fever with MAP in 60s, patient's antibiotic regimen widened to vancomycin and levofloxacin, ICU team was consulted. On assessment at bedside today patient has no complaints, has minimal right upper quadrant tenderness, patient reported that she was scheduled for ERCP this month with possible stent placement in bile duct and removal of bile drain and MATIAS drain. Patient was found to be fluid responsive on assessment via NICOM, otherwise patient had no complaints, mean arterial pressure around 60s on assessment, decision was made to upgrade patient further to intensive care unit for source identification and control of possible sepsis in setting of septic shock with elevated lactate. 10/10/23: Patient seen and examined at bedside, did not need any IV pressors overnight, patient alert oriented x 3, was eating breakfast this morning and pelvis showed bilateral pneumonia, patient on Zosyn currently for treatment. Patient received hemodialysis, no fluid was removed. Eventually later in the day, patient's mean arterial pressure with noted rate less than 65, multiple readings showed mean arterial pressure around 50, patient started on IV Levophed and vasopressin, placed arterial line, central line. Bedside assessment, on ultrasound showed dilated IVC, noncompressible patient not good candidate for fluid resuscitation. Patient's family at bedside requested transfer to [facility], consult was placed to transfer nurse, request for transfer was denied by [facility] as the patient does not meet criteria for acute transfer and [facility] is at capacity per transfer nurse. Will continue to monitor and manage patient in ICU, will not be downgraded, cancelled transfer. Exam Vital Signs Temp Pulse Resp BP Pulse Ox O2 Del Method O2 Flow Rate 98.8 F 75 20 141/28 H 91 L Nasal Cannula 2 10/10/24 12:01 10/10/24 13:10/10/24 13:10/10/24 13:01 10/10/24 13:10/09/24 15:04 10/10/24 11:52 Narrative Exam Physical Exam General: Awake and in no acute distress. Conversational and ill-appearing . HEENT: Normocephalic, atraumatic, mucous membranes moist. Heart: Irregular rate and rhythm, no murmurs. Lungs: Clear to auscultation with no wheezing or crackles. Abdomen: Soft, nondistended, mild tenderness noted right upper quadrant, Alcala sign negative, positive bowel sounds. ?No guarding or rebound tenderness. Neurologic: Alert and oriented x3, no gross neurological deficit, and patient able to move all 4 extremities. Extremities: No edema. Discoloration noted bilaterally legs, possibly secondary to venous stasis, left upper extremity edema noted. Skin: Stage I sacral ulcer, unstageable wound left buttock, biliary drain, MATIAS drain noted. Left femoral central line, right femoral arterial line noted. Objective Labs 10/10/24 05:28 10/10/24 17:29 Labs: Laboratory Results - last 24 hr 10/09/24 10/09/24 10/09/24 14:05 14:11 14:30 WBC 15.9 H D RBC 3.70 L Hgb 10.7 L Hct 36.2 MCV 98 MCH 28.9 MCHC 29.6 L RDW Std Deviation 67.9 H Plt Count 185 Neut % (Auto) 92 H Lymph % (Auto) 3 L Salem % (Auto) 4 Eos % (Auto) 0 Baso % (Auto) 0 Neut # (Auto) 14.6 H Lymph # (Auto) 0.5 L Salem # (Auto) 0.6 Eos # (Auto) 0.0 Baso # (Auto) 0.1 Immature Gran # (Auto) 0.08 H Absolute Nucleated RBC 0.02 H Immature Gran % 1 H Nucleated RBC % 0 PT INR APTT Puncture Site Cancelled Right Radial ABG pH Cancelled 7.45 ABG pCO2 Cancelled 30 L ABG pO2 Cancelled 59 L* ABG HCO3 Cancelled 20 ABG O2 Saturation Cancelled 91 ABG Base Excess Cancelled -3 Oxygen Liter Flow Cancelled 2 FiO2 Cancelled 21 Sodium 134 L Potassium 4.9 D Chloride 96 L Carbon Dioxide 19.2 L Anion Gap 19 H BUN 35 H Creatinine 4.6 H* Estim Creat Clear Calc 12.1 L eGFR 11 L* BUN/Creatinine Ratio 8 L Glucose 106 D Calculated Osmolality 276 Lactic Acid 4.7 H* Calcium 8.7 Corrected Calcium 9.0 Phosphorus 7.3 H Magnesium 2.0 Total Bilirubin 0.9 AST 43 H ALT 21 Alkaline Phosphatase 145 H Troponin I 5.057 H* D Total Protein 6.6 Albumin 3.6 Globulin 3.0 Albumin/Globulin Ratio 1.2 Lipase 20 Random Vancomycin 10/09/24 10/09/24 10/10/24 17:49 21:15 05:28 WBC 12.6 H RBC 3.12 L Hgb 9.0 L Hct 30.3 L MCV 97 MCH 28.8 MCHC 29.7 L RDW Std Deviation 64.9 H Plt Count 164 Neut % (Auto) 92 H Lymph % (Auto) 4 L Salem % (Auto) 3 Eos % (Auto) 1 Baso % (Auto) 0 Neut # (Auto) 11.5 H Lymph # (Auto) 0.5 L Salem # (Auto) 0.4 Eos # (Auto) 0.1 Baso # (Auto) 0.1 Immature Gran # (Auto) 0.07 H Absolute Nucleated RBC 0.00 Immature Gran % 1 H Nucleated RBC % 0 PT 24.7 H D INR 2.4 H APTT 39.6 H Puncture Site ABG pH ABG pCO2 ABG pO2 ABG HCO3 ABG O2 Saturation ABG Base Excess Oxygen Liter Flow FiO2 Sodium 135 L Potassium 4.4 D Chloride 98 Carbon Dioxide 23.3 Anion Gap 14 BUN 44 H Creatinine 5.0 H* Estim Creat Clear Calc 11.1 L eGFR 10 L* BUN/Creatinine Ratio 9 L Glucose 72 L Calculated Osmolality 280 Lactic Acid 3.3 H 2.9 H Calcium 8.6 Corrected Calcium 9.2 Phosphorus 8.3 H Magnesium 2.1 Total Bilirubin 0.9 AST 28 ALT 17 Alkaline Phosphatase 126 H Troponin I Total Protein 5.9 Albumin 3.2 L Globulin 2.7 Albumin/Globulin Ratio 1.2 Lipase Random Vancomycin 17.1 ABG Interpretation ABG results: 10/09/24 10/09/24 14:05 14:30 ABG pH Cancelled 7.45 ABG pCO2 Cancelled 30 L ABG pO2 Cancelled 59 L* ABG HCO3 Cancelled 20 ABG O2 Saturation Cancelled 91 ABG Base Excess Cancelled -3 Quality Measures Quality Measures none Assessment & Plan Assessment Current Active Medications: Generic Name Dose Route Start Last Admin Trade Name Freq PRN Reason Stop Dose Admin Acetaminophen 650 mg 10/07/24 22:21 10/09/24 13:42 Acetaminophen 325 Mg Tablet PO 11/06/24 22:20 650 mg Q6H PRN Administration Fever >101.5 Hydrocodone Bitart/Acetaminophen 1 tab 10/08/24 12:14 10/10/24 11:07 Hydrocodone/Apap 5/325 Tablet PO 10/13/24 12:13 1 tab Q4HR PRN Administration PAIN SCALE 4-10(Mod-Sev Albuterol 2.5 mg 10/08/24 07:45 10/10/24 06:30 Albuterol Rt 2.5 Mg/0.5 Ml Nebu INH 11/07/24 07:44 Not Given TID WINSTON Albuterol 2.5 mg 10/08/24 07:38 Albuterol Rt 2.5 Mg/0.5 Ml Nebu INH 11/07/24 10:59 Q4HRRT PRN SOB or Wheeze Allopurinol 100 mg 10/08/24 09:00 10/10/24 12:23 Allopurinol 100 Mg Tablet PO 11/07/24 08:59 100 mg QDAY WINSTON Administration Amiodarone HCl 200 mg 10/10/24 09:00 10/10/24 12:23 Amiodarone Hcl 200 Mg Tablet PO 11/09/24 08:59 Not Given QDAY WINSTON Atorvastatin Calcium 20 mg 10/09/24 21:00 10/09/24 21:10 Atorvastatin Calcium 20 Mg Tablet PO 11/08/24 20:59 20 mg HS WINSTON Administration Posaconazole 100 Mg 0 ea 10/08/24 11:30 10/10/24 12:25 Delayed Release PO 11/07/24 11:29 4 tablet Tablet DAILY WINSTON Administration Dextrose 25 ml 10/07/24 22:47 Dextrose 50%-Water Inj 50 Ml Syringe IV 11/06/24 22:46 Q15MIN PRN BG 50-70 responsive npo pt Dextrose 50 ml 10/07/24 22:47 Dextrose 50%-Water Inj 50 Ml Syringe IV 11/06/24 22:46 Q15MIN PRN BG <50 OR BG <70 & pt unresponsive Furosemide 20 mg 10/08/24 09:00 10/08/24 09:30 Furosemide 20 Mg Tablet PO 11/07/24 08:59 20 mg BID WINSTON Administration Glucagon 1 mg 10/07/24 22:47 Glucagon Inj 1 Mg Vial IM Q15MIN PRN BG <70, and no IV access Hydroxychloroquine Sulfate 200 mg 10/08/24 09:00 10/10/24 12:24 Hydroxychloroquine 200 Mg Tablet PO 10/15/24 08:59 200 mg BID WINSTON Administration Piperacillin/Tazobactam/Dextrose 50 mls @ 12.5 mls/hr 10/10/24 06:00 10/10/24 06:05 Zosyn IV 10/17/24 05:59 12.5 mls/hr Q12H WINSTON Administration Norepinephrine Bitartrate 16 mg in 250 mls @ 2.658 mls/hr 10/09/24 19:33 Levophed In Ns 16mg/250ml IV 11/08/24 19:32 .Q24H PRN PER PROTOCOL Protocol 0.05 MCG/KG/MIN Albumin Human 25 gm in 100 mls @ 100 mls/min 10/10/24 08:27 Albuminar-25 Ivpb IV PRN PRN DIALYSIS Midodrine 10 mg 10/07/24 22:45 10/10/24 06:05 Midodrine 5 Mg Tablet PO 11/06/24 22:44 10 mg TID WINSTON Administration Pharmacy Consult 1 each 10/09/24 20:57 Pharmacy Renal Dose Adjustment 1 Ea XX 11/08/24 20:56 PRN PRN CONSULT Prednisone 5 mg 10/08/24 09:00 10/10/24 12:23 Prednisone 5 Mg Tablet PO 11/07/24 08:59 5 mg QAM WINSTON Administration Pregabalin 75 mg 10/10/24 09:00 10/10/24 12:24 Pregabalin 75 Mg Capsule PO 11/09/24 08:59 75 mg QDAY WINSTON Administration Sevelamer Carbonate 800 mg 10/09/24 12:00 10/10/24 12:25 Sevelamer Carbonate 800 Mg Tablet PO 11/08/24 11:59 800 mg TIDWM WINSTON Administration Sodium Chloride 3 ml 10/08/24 07:38 Sodium Chloride Rt Arlen 0.9% 3 Ml Nebu INH 11/07/24 07:37 PRN PRN SOLN Tacrolimus 0.5 mg 10/08/24 13:00 10/08/24 13:11 Tacrolimus 0.5 Mg Capsule (Non-Formulary) PO 11/07/24 12:59 0.5 mg TUTHSA WINSTON Administration Plan Assessment and Plan: Summary: Ms. 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 Patient admitted for further workup, upgraded to intensive care unit on 10/09/2024 due to concern of suspicion of septic shock, no source. Neurological Patient is alert oriented x 3, stable. Cardiology #Shock Differential diagnosis: Distributive shock (high suspicion of septic shock, source pneumonia, patient is immunocompromised status post renal transplant less likely neurogenic/anaphylactic) Cardiogenic shock (elevated troponin, echo shows mild hypokinesis inferior/lateral/posterior wall, no EKG changes, chest pain, bedside echo shows good pumping effect) Ruled out hypovolemic shock (patient does have poor p.o. intake, no blood loss, acute volume loss noted), obstructive shock (no significant respiratory distress noted) Diagnostic workup: Lactate 4.7, patient has fevers, fmax 102.3, relatively hypotensive compared to baseline, elevated WBC count Bedside NICOM assessment shows 31% SVI, patient fluid responsive Patient has chronic indwelling drains, biliary and MATIAS drain as possible source of infection, was scheduled for repeat ERCP with stent placement this month, possible source Patient was given 500 cc bolus of normal saline 10/09, blood pressure improved, did not need pressors overnight CTAP Moderate enlargement cardiac contour, Bibasilar pneumonia, Primary hepatocellular disease, Percutaneous cholecystostomy drainage catheter satisfactory position, Marked decrease in size of cystic mass in the right retroperitoneum with drainage catheter satisfactory position, Mild ascites, End- stage saxman kidneys, Left transplant kidney does not exhibit hydronephrosis Treatment: -Started on Levophed -Placed arterial line, central line -Patient will be started on IV Zosyn (10/09- -patient was given IV levofloxacin and vancomycin (10/09-10/09) -Continue home dose midodrine 10 three times daily -Will start patient on IV pressors if needed -Hold tacrolimus with concern of septic shock Follow-up: -Ordered culture of biliary drain and MATIAS drain -Monitor for fevers # NSTEMI Differential diagnosis: Demand ischemia vs NSTEMI type I Diagnostic workup: On admission patient denied any chest pain shortness of breath or any other atypical symptoms, presented with presyncope due to hypoglycemia On admission EKG shows A-fib with RVR, Patient's troponin peaked at 7.493 and is downtrending. Echo showed mild hypokinesis of inferior lateral and posterior wall, EF 45%, severe LA dilatation, severe degenerative mitral valve annulus calcification with moderate MV stenosis. EF decreased from 55% to 45% since last January 2024. Cardiology was consulted, patient was scheduled for cardiac cath on Treatment: -Will monitor for chest pain -Cardiology is consulted, no new recommendations currently Follow-up: -Monitor vitals closely #HFmEF EF 45% #History of atrial fibrillation #History of mitral stenosis # Concern of QTc prolongation Diagnostic workup: Patient currently does not look fluid overloaded, he is on 2 L nasal cannula saturating well ECHO 10/08: Normal LV size. with Mild systolic dysfunction. Mild hypokinesis inferior lateral and posterior wall. Estimated EF 45% Mild RV dilatation. Mild RV dysfunction. Estimated RVSP 73mmHg. Severe LA dilatation. Severe degegenerative mitral valve annulus calcification with MODERATE mitral valve stenosis, mean gradient 10mmHg. Pressure 1/2 time 105 with mitral valve area 2.1 sq cm by this method Modearte mitral regurgitation Moderate TR, Mild pulmic and mild aortic valve regurgitation. IVC dilated. EKG 10/09 shows QTc 515, patient is on amiodarone 200 daily, posaconazole 400 mg daily and hydroxychloroquine 200 mg twice daily Treatment: -Will hold Lasix for now -Repeat EKG in a.m. -Will keep potassium more than 4, magnesium more than 2 -Will hold oral amiodarone in a.m. due to concern of QTc prolongation Follow-up: -Will order repeat EKG in the morning -Follow telemetry consider amiodarone if patient has A-fib RVR Pulmonary Stable, patient saturating more than 95 on 2 L nasal cannula Gastrointestinal #Chronic diarrhea # Status post partial cholecystectomy, biliary and MATIAS drain intact Differential diagnosis: Patient reports chronic diarrhea since biliary drain was placed, reports was placed in August Diagnostic workup: Minimal abdominal tenderness at bedside, some in right upper quadrant Currently has no complaints of diarrhea CTAP Moderate enlargement cardiac contour, Bibasilar pneumonia, Primary hepatocellular disease, Percutaneous cholecystostomy drainage catheter satisfactory position, Marked decrease in size of cystic mass in the right retroperitoneum with drainage catheter satisfactory position, Mild ascites, End- stage saxman kidneys, Left transplant kidney does not exhibit hydronephrosis Treatment/Follow-up:: -Ordered CT abdomen pelvis -Will monitor for diarrhea Renal/Genitourinary # End-stage renal disease # Status post renal transplant # History of SLE with lupus nephritis status postrenal transplant on immunosuppression Differential diagnosis: Chronic transplant rejection Diagnostic workup: Patient is on dialysis outpatient Monday Abdominal ultrasound shows Cyst in transplant kidney,Atrophic saxman kidneys, No hydronephrosis of the transplant kidney Treatment: -Will continue with inpatient dialysis -Avoid nephrotoxic agents Follow-up: -Monitor closely urine output Endocrine #Type 2 diabetes mellitus, insulin-dependent #Presyncope likely secondary to #Hypoglycemia in the setting of insulin use and poor oral intake Differential diagnosis: Improved diabetes in setting of end-stage renal disease Diagnostic workup: Hemoglobin A1c 3.9 Patient's fingerstick blood glucose low Treatment/Follow-up: -Hold insulin -Monitor fingerstick blood glucose Hematology #History of antiphospholipid antibody syndrome (on Coumadin) #History of gout Diagnostic workup: Patient is taking allopurinol, hydroxychloroquine, tacrolimus, and prednisone. Goal INR for antiphospholipid syndrome it is 2-3. Treatment: Patient was scheduled for cardiac cath, was holding warfarin for goal INR less than 2 We will continue to hold warfarin for possible intervention Follow-up: -Follow INR in a.m. -Patient has paroxysmal A-fib, will consider heparin drip if needed Infectious Disease #Valley fever, by history Patient is on lifelong posaconazole by history Will resume home medication Integumentary/Musculoskeletal #Stage I sacral ulcer #Unstageable ulcer, left hip Wound care as needed Referral to wound care DVT prophylaxis: Therapeutic INR GI prophylaxis: Protonix Diet: Renal/dysphagia 3 Lines: Peripheral IV Code status: Full code Case discussed with Attending Dr. Castillo and Dr. Birmingham PGY3. Monse Diana PGY1 Disclaimer: This note was dictated by speech recognition. Minor errors in lineman may be present due to voice recognition software.
--- NOTE | 2024-10-10 13:45 | PC.SS ---
Update: Patient has been downgraded from ICU.
--- NOTE | 2024-10-10 14:15 | ESPR_ITS ---
<Statement entered by Sarath Waters MD - 10/11/24 13:28> I personally examined the patient today with Dr. Hewitt PGY 2 appears to be doing a little better still having some shortness of breath but no chest pain reported patient clearly had NSTEMI also possible sepsis treated with IV antibiotic therapy patient will require angiogram when she is stable but will continue to monitor for any signs of ischemia for now we will continue medical management and once INR issues below to start on heparin therapy possibly early next week may require angiogram. Documentation for date of: 10/10/24 Subjective Subjective Interval history: Patient seen and assessed at bedside in ICU with family present. Patient states to be feeling slightly better today compared to yesterday. Patient no longer hypotensive. Patient still complaining of abdominal pain, abdominal CT shows cholecystostomy tube in satisfactory position. Patient does have pneumonia and is on antibiotics. Patient pending overall improvement for Shake Table Operator procedure to assess for any signs of atherosclerosis/blockage in coronaries. Exam Vital Signs Temp Pulse Resp BP Pulse Ox O2 Del Method O2 Flow Rate 98.8 F 77 20 101/58 L 91 L Nasal Cannula 2 10/10/24 12:01 10/10/24 14:12 10/10/24 13:01 10/10/24 14:12 10/10/24 13:01 10/09/24 15:04 10/10/24 11:52 Narrative Exam General: ill-appearing laying in bed. Appears older than age, responsive to most questions. Family members are present at bedside. Lungs: Rales/rhonchi on auscultation bilateral lower lobes. On nasal cannula. CVS: Irregularly, irregular rhythm. S1/S2 heard, no murmurs or rubs appreciated ABD: Soft, non-tender, non-distended, BS + in all 4 quadrants EXT: No edema noted. Mild tenderness on palpation. Objective Labs 10/10/24 05:28 10/10/24 05:28 Labs: Laboratory Results - last 24 hr 10/09/24 10/09/24 10/09/24 14:05 14:11 14:30 WBC 15.9 H D RBC 3.70 L Hgb 10.7 L Hct 36.2 MCV 98 MCH 28.9 MCHC 29.6 L RDW Std Deviation 67.9 H Plt Count 185 Neut % (Auto) 92 H Lymph % (Auto) 3 L [place] % (Auto) 4 Eos % (Auto) 0 Baso % (Auto) 0 Neut # (Auto) 14.6 H Lymph # (Auto) 0.5 L [place] # (Auto) 0.6 Eos # (Auto) 0.0 Baso # (Auto) 0.1 Immature Gran # (Auto) 0.08 H Absolute Nucleated RBC 0.02 H Immature Gran % 1 H Nucleated RBC % 0 PT INR APTT Puncture Site Cancelled Right Radial ABG pH Cancelled 7.45 ABG pCO2 Cancelled 30 L ABG pO2 Cancelled 59 L* ABG HCO3 Cancelled 20 ABG O2 Saturation Cancelled 91 ABG Base Excess Cancelled -3 Oxygen Liter Flow Cancelled 2 FiO2 Cancelled 21 Sodium 134 L Potassium 4.9 D Chloride 96 L Carbon Dioxide 19.2 L Anion Gap 19 H BUN 35 H Creatinine 4.6 H* Estim Creat Clear Calc 12.1 L eGFR 11 L* BUN/Creatinine Ratio 8 L Glucose 106 D Calculated Osmolality 276 Lactic Acid 4.7 H* Calcium 8.7 Corrected Calcium 9.0 Phosphorus 7.3 H Magnesium 2.0 Total Bilirubin 0.9 AST 43 H ALT 21 Alkaline Phosphatase 145 H Troponin I 5.057 H* D Total Protein 6.6 Albumin 3.6 Globulin 3.0 Albumin/Globulin Ratio 1.2 Lipase 20 Random Vancomycin 10/09/24 10/09/24 10/10/24 17:49 21:15 05:28 WBC 12.6 H RBC 3.12 L Hgb 9.0 L Hct 30.3 L MCV 97 MCH 28.8 MCHC 29.7 L RDW Std Deviation 64.9 H Plt Count 164 Neut % (Auto) 92 H Lymph % (Auto) 4 L [place] % (Auto) 3 Eos % (Auto) 1 Baso % (Auto) 0 Neut # (Auto) 11.5 H Lymph # (Auto) 0.5 L [place] # (Auto) 0.4 Eos # (Auto) 0.1 Baso # (Auto) 0.1 Immature Gran # (Auto) 0.07 H Absolute Nucleated RBC 0.00 Immature Gran % 1 H Nucleated RBC % 0 PT 24.7 H D INR 2.4 H APTT 39.6 H Puncture Site ABG pH ABG pCO2 ABG pO2 ABG HCO3 ABG O2 Saturation ABG Base Excess Oxygen Liter Flow FiO2 Sodium 135 L Potassium 4.4 D Chloride 98 Carbon Dioxide 23.3 Anion Gap 14 BUN 44 H Creatinine 5.0 H* Estim Creat Clear Calc 11.1 L eGFR 10 L* BUN/Creatinine Ratio 9 L Glucose 72 L Calculated Osmolality 280 Lactic Acid 3.3 H 2.9 H Calcium 8.6 Corrected Calcium 9.2 Phosphorus 8.3 H Magnesium 2.1 Total Bilirubin 0.9 AST 28 ALT 17 Alkaline Phosphatase 126 H Troponin I Total Protein 5.9 Albumin 3.2 L Globulin 2.7 Albumin/Globulin Ratio 1.2 Lipase Random Vancomycin 17.1 ABG Interpretation ABG results: 10/09/24 10/09/24 14:05 14:30 ABG pH Cancelled 7.45 ABG pCO2 Cancelled 30 L ABG pO2 Cancelled 59 L* ABG HCO3 Cancelled 20 ABG O2 Saturation Cancelled 91 ABG Base Excess Cancelled -3 Quality Measures Quality Measures none Assessment & Plan Assessment Current Active Medications: Generic Name Dose Route Start Last Admin Trade Name Freq PRN Reason Stop Dose Admin Acetaminophen 650 mg 10/07/24 22:21 10/09/24 13:42 Acetaminophen 325 Mg Tablet PO 11/06/24 22:20 650 mg Q6H PRN Administration Fever >101.5 Hydrocodone Bitart/Acetaminophen 1 tab 10/08/24 12:14 10/10/24 11:07 Hydrocodone/Apap 5/325 Tablet PO 10/13/24 12:13 1 tab Q4HR PRN Administration PAIN SCALE 4-10(Mod-Sev Albuterol 2.5 mg 10/08/24 07:45 10/10/24 06:30 Albuterol Rt 2.5 Mg/0.5 Ml Nebu INH 11/07/24 07:44 Not Given TID WINSTON Albuterol 2.5 mg 10/08/24 07:38 Albuterol Rt 2.5 Mg/0.5 Ml Nebu INH 11/07/24 10:59 Q4HRRT PRN SOB or Wheeze Allopurinol 100 mg 10/08/24 09:00 10/10/24 12:23 Allopurinol 100 Mg Tablet PO 11/07/24 08:59 100 mg QDAY WINSTON Administration Amiodarone HCl 200 mg 10/10/24 09:00 10/10/24 12:23 Amiodarone Hcl 200 Mg Tablet PO 11/09/24 08:59 Not Given QDAY WINSTON Atorvastatin Calcium 20 mg 10/09/24 21:00 10/09/24 21:10 Atorvastatin Calcium 20 Mg Tablet PO 11/08/24 20:59 20 mg HS WINSTON Administration Posaconazole 100 Mg 0 ea 10/08/24 11:30 10/10/24 12:25 Delayed Release PO 11/07/24 11:29 4 tablet Tablet DAILY WINSTON Administration Dextrose 25 ml 10/07/24 22:47 Dextrose 50%-Water Inj 50 Ml Syringe IV 11/06/24 22:46 Q15MIN PRN BG 50-70 responsive npo pt Dextrose 50 ml 10/07/24 22:47 Dextrose 50%-Water Inj 50 Ml Syringe IV 11/06/24 22:46 Q15MIN PRN BG <50 OR BG <70 & pt unresponsive Furosemide 20 mg 10/08/24 09:00 10/08/24 09:30 Furosemide 20 Mg Tablet PO 11/07/24 08:59 20 mg BID WINSTON Administration Glucagon 1 mg 10/07/24 22:47 Glucagon Inj 1 Mg Vial IM Q15MIN PRN BG <70, and no IV access Hydroxychloroquine Sulfate 200 mg 10/08/24 09:00 10/10/24 12:24 Hydroxychloroquine 200 Mg Tablet PO 10/15/24 08:59 200 mg BID WINSTON Administration Piperacillin/Tazobactam/Dextrose 50 mls @ 12.5 mls/hr 10/10/24 06:00 10/10/24 06:05 Zosyn IV 10/17/24 05:59 12.5 mls/hr Q12H WINSTON Administration Albumin Human 25 gm in 100 mls @ 100 mls/min 10/10/24 08:27 Albuminar-25 Ivpb IV PRN PRN DIALYSIS Midodrine 10 mg 10/07/24 22:45 10/10/24 14:12 Midodrine 5 Mg Tablet PO 11/06/24 22:44 10 mg TID WINSTON Administration Pharmacy Consult 1 each 10/09/24 20:57 Pharmacy Renal Dose Adjustment 1 Ea XX 11/08/24 20:56 PRN PRN CONSULT Prednisone 5 mg 10/08/24 09:00 10/10/24 12:23 Prednisone 5 Mg Tablet PO 11/07/24 08:59 5 mg QAM WINSTON Administration Pregabalin 75 mg 10/10/24 09:00 10/10/24 12:24 Pregabalin 75 Mg Capsule PO 11/09/24 08:59 75 mg QDAY WINSTON Administration Sevelamer Carbonate 800 mg 10/09/24 12:00 10/10/24 12:25 Sevelamer Carbonate 800 Mg Tablet PO 11/08/24 11:59 800 mg TIDWM WINSTON Administration Sodium Chloride 3 ml 10/08/24 07:38 Sodium Chloride Rt Arlen 0.9% 3 Ml Nebu INH 11/07/24 07:37 PRN PRN SOLN Tacrolimus 0.5 mg 10/08/24 13:00 10/08/24 13:11 Tacrolimus 0.5 Mg Capsule (Non-Formulary) PO 11/07/24 12:59 0.5 mg TUTHSA WINSTON Administration Plan Ms. Vela is a 59-year-old female with past medical history significant for hypertension, hyperlipidemia, type 2 diabetes, post kidney transplant on dialysis Mondays and Fridays, lupus, antiphospholipid syndrome, mitral stenosis and stroke on warfarin, multiple surgeries including a cholecystectomy last year who presented to the ED with a syncopal episode. Cardiology was consulted for further management for her syncope and elevated troponin most likely secondary to demand ischemia and supratherapeutic INR. #Elevated Troponin most likely in the setting of demand ischemia #Supratherapeutic INR #Moderate mitral stenosis secondary to heavy calcification, mitral annulus #HFmEF, 45% #Peripheral arterial occlusive disease and peripheral neuropathy. #Antiphospholipid syndrome, on Coumadin #Long QT interval?resolved Patient presented with an episode of syncopal episode status post insulin administration. Patient's vital signs have been stable except for elevated heart rate on initial presentation. Blood sugar in ER was 69 status post 5u Lispro. Patient's troponin peaked at 7.493 and is downtrending. BNP elevated at 3000 180. INR today was 3.3. EKG continues to show A-fib with no ST-T changes from previous EKG. Echo showed mild hypokinesis of inferior lateral and posterior wall, EF 45%, severe LA dilatation, severe degenerative mitral valve annulus calcification with moderate MV stenosis. EF decreased from 55% to 45% since last January 2024. On tele monitor, patient's HR is well controlled, and goes in-an-out of A-fib. -Will follow-up with a.m. coagulation -Keep potassium above 4 and magnesium above 2 -Continue to hold warfarin dose as INR is supratherapuetic -Will start heparin gtt once INR is < 2 -Possible plan for angiogram once patient is more stable and INR less than 2 -EKG today shows QTc at 381. Improved from previous EKG. #SLE with hx of kidney transplant #Status post renal transplant on dialysis M&F #Diabetes mellitus?well-controlled #Pneumonia #Septic shock Rest of problems as per primary team Patient's plan and care discussed with my attending, Dr. Jt Hewitt MD PGY3
--- NOTE | 2024-10-10 14:29 | PC.NURSE ---
hemodialysis done @ bedside from [id number].
[2024-10-10] MEDS: SODIUM CHLORIDE RT SOL 0.9% 3 ML NEBU INH (14:42)
[2024-10-10] MEDS: ALBUTEROL RT 2.5 MG/0.5 ML NEBU INH ×2 (14:42→22:10)
--- NOTE | 2024-10-10 14:44 | EVENTNT_ITS ---
<Statement entered by Riddhi Ronquillo MD - 10/15/24 12:14> I reviewed above note and agree with findings and plans. I have also personally examined the patient with medicine team and went over assessment and plan with medical team including international student counselor and resident physician. 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 Patient was upgraded to the ICU on 10/09/2024 after a rapid response was called due to patient's mental status had changed and she was found to have a fever as well as hypotension. In the ICU patient was given IV fluids to which she was responsive and she was started on Zosyn as well as midodrine 10 mg 3 times daily for possible septic shock. Abdomen ultrasound showed some minimal free fluid in right upper abdomen, chest x-ray showed bilateral consolidations which could be due to pneumonia versus kentrell ma, and abdomen/pelvis CT that showed bibasilar pneumonia. Patient did get hemodialysis on 10/10/2024. Patient is EKG showed slight QTc prolongation, but on repeat EKG and went back to 381. Today patient was stable enough to be downgraded to the medical floors and assigned to team C as of 10/11/2024. : Case disclosed with Attending Dr. Yg Duffy PGY1
--- NOTE | 2024-10-10 15:00 | PC.NURSE ---
Pt.B/P 73/47 [address] doctors rounds with Dr. Castillo @ 1400 , asked if midrorine has been given,due @ 1400 will be giving amiodarone . and me tried to take from both thighs after giving midrodrine,still low,no new order,wants to monitor B/P.will continue to monitor.
--- NOTE | 2024-10-10 15:19 | PC.SS ---
HOSPITAL ACCOUNT LIAISON informed by resident that patient's family requesting transfer to [facility]. HOSPITAL ACCOUNT LIAISON met with patient's daughter, Mitzi; who was present at bedside. Daughter confirmed request. HOSPITAL ACCOUNT LIAISON spoke to patient's spouse, Kevin Vela; and explained that transfer request would not be for HLOC. Transfer would be deemed lateral transfer and likelihood that insurance would not authorize transfer. Patient's spouse relayed that patient has been transferred before to address gallstone issue. HOSPITAL ACCOUNT LIAISON acknowledged previous transfer. HOSPITAL ACCOUNT LIAISON updated ICU resident team and informed transfer nurse of family's request. Transfer nurse to contact [facility]. HOSPITAL ACCOUNT LIAISON updated family
--- NOTE | 2024-10-10 15:55 | PC.CM ---
I received a call from Dr. Diana and Kaleb . They stated patients family would like patient transferred to [facility] where she has been transferred in the past for gallbladder issues. Dr. Diana and Kaleb spoke to patient's family and let them know that a family request is a lateral request and it will not be covered by the insurance. I went ahead and reached out to [facility] transfer center and I presented the case. Transfer nurse states they will not be able to accept a lateral transfer because it would be very costly and the insurance would not pay for transport. Transfer nurse stated they are not even able to accept higher level transfer due to capacity. I notified Dr. Diana and I let a message for Kaleb with account services analyst.
[2024-10-10] MEDS: Norepinephrine/D5W 8mg/250ml 8 MG/250 ML BAG 5.634 MG IV (16:26)
[2024-10-10] MEDS: VASOPRESSIN IN NS IVPB 20 UNIT/100 ML BAG 9 UNIT IV (17:13)
--- NOTE | 2024-10-10 17:30 | PC.NURSE ---
15[address] DR [address]ES AND DR LOPES AT BEDSIDE FOR LOW BP STATED BP NEEDED TO BE TAKEN ON LEFT UPPER ARM BUT IV NEEDED TO BE REPLACED SINCE IT WAS IN THE UPPER ARM. PATIENT HAD LIMITED BP ACCESS DUE TO FISTULA ON RIGHT ARM. IV REMOVED AND REPLACED BP TAKEN ON LEFT UPPER ARM AND MAP STILL BELOW 65. BP AGAIN TAKEN ON LOWER LEFT FOREARM AND MAP IN 40S. VERIFIED WITH DR LINARES IF LEVO WAS TO BE STARTED DR LINARES STATED WE WILL NEED TO CALL DR TOLENTINO TO DISCUSS THE CASE FIRST EMPHASIZED PATIENTS MAP CONTINUED TO BE IN 40S AND NEED FOR LEVO. LEVO STARTED AT 1630 ARTERIAL LINE PLACED AT [address] LINARES AND MAPS MATCHING ON ARTERIAL LINE AND BP CUFF. CENTRAL LINE PLACED BY DR HERNANDEZ LEVO TITRATED PER ORDER.
[2024-10-10 17:37] LABS: Lactate (Lactic Acid) 2.4 mMol/L (0.4-2.0)
--- NOTE | 2024-10-10 17:39 | PC.NURSE ---
pt.had dialysis,refused to be turned and refuse pt. care,wanted to be left alone after dialysis.familes were at bedside.
--- NOTE | 2024-10-10 18:00 | ESOP_ITS ---
<Statement entered by Kay Castillo MD - 10/11/24 16:01> I was immediately available to provide assistance. Procedures Procedure Date / Time 10/10/24 1700 Procedural Time Out Time out performed: Yes Arterial Line Indication(s): shock and inability to monitor non-invasive BP Informed consent obtained: obtained from surrogate decision maker Time out done, and the following verified: correct patient, side and site, procedure, patient position and implants and/or equipment Size (Gauge): 20 Technique used: guide wire technique (Ultrasound guided) Post-Procedure: line sutured into place and dry sterile dressing placed Patient tolerated procedure: well EBL(ml): 5 Complications: none Site: left and femoral Procedure comment: Procedure was performed by Dr. Brimingham (PGY-3) with assistance from Dr. Lynne (PGY-4). Consent was obtained prior to procedure from patient's as patient appeared lethargic and unable to answer questions regarding procedure. Right femoral artery was visualized on ultrasound prior to establishing sterile field. Time out was performed, patient, procedure, site, side and equipment were verified. My (Dr. Birmingham) hands were washed prior to the procedure, bouffant cap with mask and sterile gown with sterile gloves were worn during procedure. Right inner groin region (where right femoral artery was visualized) was prepped with chlorhexidine scrub. Sterile field was established, ultrasound probe was placed in sterile probe cover. Anesthesia was achieved using 1% lidocaine, ~5cc used. Arterial catheterization kit was used with 20 Ga size. Using needle from kit and under ultrasound guidance, needle was introduced into right femoral artery, flash of blood in pulsatile fashion was observed from needle opening. Guidewire was then introduced through needle opening, able to smoothly pass into artery. Needle was then removed while the guide wire remained in place. A 20 Ga x 12 cm one-lumen catheter was then inserted into guide wire and able to smoothly pass into femoral artery. A small knick was made on the skin adjacent to the guide wire using sterile scalpel to assist with catheter insertion. Once the catheter was inserted, the guide wire was removed and blood was still oozing from catheter. The catheter was then connected to transducer, which was connected to monitor and calibrated, appropriate waveforms and blood pressure recordings were noted. Catheter was sutured into place. Sterile dressing was applied after femoral central line (separate operative report) was placed. Patient case discussed with attending physician Dr. Anna Birmingham, DO PGY-3
[2024-10-10] MEDS: PANTOPRAZOLE INJ 40 MG VIAL IVP (18:23)
[2024-10-10 18:25] LABS: Alanine Aminotransferase 16 U/L (10-49); Albumin, Serum 3.1 gm/dL (3.5-5.0); Albumin/Globulin Ratio 1.1 (1.2-2.2); Alkaline Phosphatase 138 U/L (46-116); Anion Gap 12 (7-16); Aspartate Amino Transferase 35 U/L (0-34); BUN/Creatinine Ratio 7 Ratio (12-20); Bilirubin,Total 1.3 mg/dL (0.3-1.2); Blood Urea Nitrogen 21 mg/dL (9-23); Calcium 8.4 mg/dL (8.3-10.6); Calcium (Corrected) 9.1 mg/dL (8.5-10.1); Carbon Dioxide 26.3 mMol/L (20.0-31.0); Chloride 97 mMol/L (98-107); Estimated Creatinine Clearance 19.4 mL/min (>60); Globulin 2.8 gm/dL (2.3-3.5); Glucose 88 mg/dL (74-106); Magnesium 1.9 mg/dL (1.6-2.6); Osmolality,Calculated 272 (275-295); Phosphorous 4.2 mg/dL (2.4-5.1); Potassium 3.7 mMol/L (3.4-5.1); Sodium 135 mMol/L (136-145); Total Protein 5.9 gm/dL (5.7-8.2); eGFR 18 See Note
--- NOTE | 2024-10-10 18:36 | ESOP_ITS ---
<Statement entered by Kay Castillo MD - 10/11/24 16:00> I was immediately available to provide assistance. Procedures Procedure Date / Time 10/10/24 107 Central Line Placement Left Femoral: Indication(s): shock Informed consent obtained: obtained from surrogate decision maker Time out done, and the following verified: correct patient, side and site, procedure and implants and/or equipment Patient placed on monitor/pulse ox: Yes Hand Hygiene: alcohol-based hand rub Max Sterile Barrier Techniques used: cap, mask, sterile gown, sterile gloves and sterile full body drape Central line prep: Chlorhexidine scrub Local anesthesia used: lidocaine 1% Amount of anesthesia used (mL): 5 Ultrasound used for placement: Yes Sterile Technique if Ultrasound used, including sterile gel: yes Central line lumen inserted: triple Post procedure: sutured in place, good blood return, all ports aspirated, flushed, capped and sterile dressing applied Patient tolerated procedure: well and no complications Complications: none
[2024-10-10 19:11] LABS: Basophils # (Auto) 0.1 Thou/mm3 (0.0-0.2); Basophils % (Auto) 1 % (0-2.5); Eosinophils # (Auto) 0.1 Thou/mm3 (0.0-0.5); Eosinophils % (Auto) 0 % (0-10); Hematocrit 32.2 % (36.0-46.0); Hemoglobin 9.7 g/dL (12.0-16.0); Immature Granulocytes % (Auto) 1 % (0-0); Immature Granulocytes Auto 0.16 Thou/mm3 (0.00-0.00); Lymphocytes # (Auto) 0.5 Thou/mm3 (1.0-4.8); Lymphocytes % (Auto) 2 % (10-50); Mean Corpuscular HGB Conc 30.1 g/dl (31.0-37.0); Mean Corpuscular Hemoglobin 28.7 pg (25.0-35.0); Mean Corpuscular Volume 95 fL (80-100); Monocytes # (Auto) 0.8 Thou/mm3 (0.0-0.8); Monocytes % (Auto) 3 % (0-12); Neutrophils # (Auto) 22.3 Thou/mm3 (1.8-7.7); Neutrophils % (Auto) 93 % (37-80); Nucleated Red Blood Cell # 0.03 Thou/mm3 (0.00-0.00); Nucleated Red Blood Cell % 0 /100 WBC (0); Platelet Count 226 Thou/mm3 (140-440); RDW Standard Deviation 63.4 fL (36.4-46.3); Red Blood Count 3.38 Miln/mm3 (4.00-5.20)
[2024-10-10 20:34] LABS: Reflex Lactate? Y
[2024-10-10] MEDS: ATORVASTATIN CALCIUM 20 MG TABLET PO (21:38)
[2024-10-10 21:53] LABS: Lactic Acid, 3 HR 3.1 mMol/L (0.4-2.0)
[2024-10-11] VITALS (135 sets, daily range): BP systolic 43–143; BP diastolic 11–84; PULSE 0–91; RESP 12–32; TEMP 36.7–37.3; O2SAT 65–100
[2024-10-11] MEDS: Norepinephrine/D5W 8mg/250ml 8 MG/250 ML BAG 39.441 MG IV (01:13)
[2024-10-11] MEDS: VASOPRESSIN IN NS IVPB 20 UNIT/100 ML BAG 9 UNIT IV ×2 (02:29→18:11)
--- NOTE | 2024-10-11 05:00 | XR_ITS ---
Examination: AP chest single view TECHNIQUE: AP portable semiupright chest single view Exam date and time: October 11, 2024 0419 hours Comparison October 09, 2024 INDICATIONS: Extensive bilateral pneumonia on chest film October 09, 2024, shortness of breath FINDINGS: Worsening bilateral lung opacity Prominent vascular congestion with mild enlargement cardiac contour Moderate osteopenia IMPRESSION: Worsening bilateral pneumonia with at least mild associated heart failure
--- NOTE | 2024-10-11 05:00 | EKG_ITS ---
[facility] Test Date: 2024-10-11 Pat Name: JUSTINE DAIGLE [facility] Client Relations Associate: HELEN : 1965 Requested By: Monse Diana Order Number: [id number] Reading MD: Monse Diana Measurements Intervals [place] Rate: 84 P: NC: QRS: -17 QRSD: 130 T: 59 QT: 345 QTc: 409 Interpretive Statements UNCERTAIN IRREGULAR RHYTHM LEFT BUNDLE BRANCH BLOCK Compared to ECG 10/10/2024 06:09:01 Left bundle-branch block now present Supraventricular rhythm no longer present Myocardial infarct finding no longer present ST (T wave) deviation no longer present /store/S0/[id number]
[2024-10-11] MEDS: PIPER/TAZO 3.375 GM 50 ML IV (05:36)
[2024-10-11] MEDS: MIDODRINE 5 MG TABLET 10 MG PO ×3 (05:37→22:48)
[2024-10-11 06:07] LABS: Basophils # (Auto) 0.1 Thou/mm3 (0.0-0.2); Basophils % (Auto) 1 % (0-2.5); Eosinophils # (Auto) 0.2 Thou/mm3 (0.0-0.5); Eosinophils % (Auto) 1 % (0-10); Hematocrit 31.3 % (36.0-46.0); Hemoglobin 9.4 g/dL (12.0-16.0); Immature Granulocytes % (Auto) 1 % (0-0); Immature Granulocytes Auto 0.15 Thou/mm3 (0.00-0.00); Lymphocytes # (Auto) 0.7 Thou/mm3 (1.0-4.8); Lymphocytes % (Auto) 4 % (10-50); Mean Corpuscular Volume 97 fL (80-100); Monocytes # (Auto) 0.7 Thou/mm3 (0.0-0.8); Monocytes % (Auto) 3 % (0-12); Neutrophils # (Auto) 18.6 Thou/mm3 (1.8-7.7); Neutrophils % (Auto) 91 % (37-80); Nucleated Red Blood Cell # 0.02 Thou/mm3 (0.00-0.00); Nucleated Red Blood Cell % 0 /100 WBC (0); Platelet Count 216 Thou/mm3 (140-440); RDW Standard Deviation 65.2 fL (36.4-46.3); Red Blood Count 3.24 Miln/mm3 (4.00-5.20); White Blood Count 20.4 Thou/mm3 (3.6-11.0)
[2024-10-11 06:11] LABS: INR 2.5 (0.9-1.3); Partial Thromboplastin Time 44.4 Seconds (22.0-36.0); Prothrombin Time 25.8 Seconds (9.0-12.2)
[2024-10-11 06:30] LABS: Alanine Aminotransferase 18 U/L (10-49); Albumin, Serum 3.1 gm/dL (3.5-5.0); Albumin/Globulin Ratio 1.1 (1.2-2.2); Alkaline Phosphatase 157 U/L (46-116); Anion Gap 15 (7-16); Aspartate Amino Transferase 33 U/L (0-34); BUN/Creatinine Ratio 7 Ratio (12-20); Bilirubin,Total 1.5 mg/dL (0.3-1.2); Blood Urea Nitrogen 24 mg/dL (9-23); Calcium 8.6 mg/dL (8.3-10.6); Calcium (Corrected) 9.3 mg/dL (8.5-10.1); Carbon Dioxide 23.6 mMol/L (20.0-31.0); Chloride 95 mMol/L (98-107); Creatinine (Component) 3.3 mg/dL (0.6-1.3); Estimated Creatinine Clearance 17.6 mL/min (>60); Globulin 2.8 gm/dL (2.3-3.5); Glucose 72 mg/dL (74-106); Magnesium 1.9 mg/dL (1.6-2.6); Osmolality,Calculated 271 (275-295); Potassium 3.8 mMol/L (3.4-5.1); Sodium 134 mMol/L (136-145); Total Protein 5.9 gm/dL (5.7-8.2); eGFR 16 See Note
[2024-10-11] MEDS: SODIUM CHLORIDE RT SOL 0.9% 3 ML NEBU INH ×3 (07:36→22:52)
[2024-10-11] MEDS: ALBUTEROL RT 2.5 MG/0.5 ML NEBU INH ×3 (07:37→22:52)
[2024-10-11] MEDS: Norepinephrine/D5W 8mg/250ml 8 MG/250 ML BAG 48.456 MG IV (07:46)
[2024-10-11] MEDS: PREGABALIN 75 MG CAPSULE PO (08:51)
[2024-10-11] MEDS: Magnesium Sulfate 2 GM Ivpb 2 GM/50 ML BAG IV (08:51)
[2024-10-11] MEDS: POTASSIUM CHLORIDE 10% 20 MEQ/15 ML UDC PO (08:51)
[2024-10-11] MEDS: AMIODARONE HCL 200 MG TABLET PO (08:52)
[2024-10-11] MEDS: allopurinoL 100 MG TABLET PO (08:52)
[2024-10-11] MEDS: PANTOPRAZOLE INJ 40 MG VIAL IVP (08:53)
[2024-10-11] MEDS: SEVELAMER CARBONATE 0.8 GM PACKET (NON-FORMULARY) PO (08:53)
[2024-10-11] MEDS: HYDROXYCHLOROQUINE 200 MG TABLET PO (08:53)
[2024-10-11] MEDS: POSACONAZOLE 100 MG PO (08:53)
[2024-10-11] MEDS: predniSONE 5 MG TABLET PO (08:54)
--- NOTE | 2024-10-11 08:59 | PD.RESPRO ---
Documentation for date of: 10/11/24 Subjective Subjective Interval history: Ms. 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 Since partial cholecystectomy in 2023, she has had chronic diarrhea. Thus, she did not meet the entire day to avoid having diarrhea. She took her scheduled insulin and afterwards started to have changes in her vision and felt like she had to faint. called EMS, presented to the ED, and blood glucose was 57. Recheck was 99 after juice and crackers. She follows with PCP Dr. Ozuna, physical therapist clinic director in [place], and pantry attendant Dr. Nelson. Currently on warfarin 2.5 mg p.o. every other day for her antiphospholipid antibody syndrome. Given that patient is ESRD, nephrology was consulted, with last dialysis session being Monday morning, 10/07. In ED, Hgb 8.9, K 2.9, BUN 24, Cr 3.0, glucose 57, PT 31, PTT 38, INR 3.2, troponin 4.6, BNP 3200 CXR: Skin markings, no signs of pulmonary edema or effusion. EKG: A-fib with HR 103. Given 25 cc of D50. 10/08: Patient seen and examined at bedside with family present. No acute overnight events. Patient has been on dialysis since March 2024 despite having transplant in 2019. Patient received dialysis today morning, and she does not seem to be volume overloaded. Potassium noted to be low and has been replenished by primary team. Labs and orders reviewed. 10/09: Patient seen and examined at bedside with family present. No acute overnight events. Cardiology consulted for further management of elevated troponins, with possible angiogram on or Monday, depending on INR. Echo showed mild hypokinesis of inferior lateral and posterior khan. EF 45%. RVSP 73 mmHg with mild RV dilatation. Severe left atrial dilatation seen. Severe degenerative mitral valve annulus calcification with moderate stenosis. Moderate MR, moderate TR. Renal function tolerable and can continue M, F regimen so long as patient remains in house. 10/10: Patient seen and examined at bedside in ICU. Rapid response called on 10/09 at 1:45 PM for acute change in mental status with new onset fevers (102.3 ?F) and MAP less than 65. Sepsis alert called with suspected source being partial cholecystectomy from 04/2024. Given that patient BP did not respond to IVF, upgraded to ICU for further management. Repeat labs significant for WBC increase from 7.6 to 15.9. ABG showed pH 7.45, pCO2 30, pO2 59. Lactate of 4.7. CT A/P: Cholecystostomy catheter in satisfactory position without signs of abscesses or other explicit inflammatory/infectious changes. 10/11: Patient seen and examined at bedside in ICU. Yesterday patient was planned to be downgraded to floors, but she developed hypotension with MAP < 65 on various BP reads, including different cuff sizes and location. IVC was assessed via bedside ultrasound and did not indicate that she would be a good candidate for IVF. Thus, decision was made to begin Levophed and vasopressin after placement of arterial and central lines and downgrade cancelled. Cardiology team would like to pursue cardiac cath after overall improvement. Noted that family requested transfer to [facility], but was denied as patient did not meet criteria at [facility] was at capacity per transfer nurse. Exam Vital Signs Temp Pulse Resp BP Pulse Ox O2 Del Method O2 Flow Rate 98.8 F 83 19 128/29 L 98 Nasal Cannula 1 10/11/24 04:00 10/11/24 07:46 10/11/24 07:37 10/11/24 07:46 10/11/24 07:37 10/10/24 18:00 10/11/24 07:37 Narrative Exam General: frail and weak appearing, AOx3, no acute distress, able to speak full sentences HEENT: NC/AT, mucous membranes moist, bilateral sclera anicteric Cardiovascular: irregular rhythm, S1/S2 present, no murmurs appreciated Pulmonary: clear to auscultation bilaterally, no rales/rhonchi/wheezes Abdominal: soft, non-tender, non-distended, no rebound/guarding, normal bowel sounds present Musculoskeletal: LUE swelling, blue/purple discoloration on bilateral lower extremities Skin: cholecystostomy tube present, left femoral central line and right femoral arterial lines noted Neuro: CN II-XII intact, no focal deficits Objective Labs 10/12/24 03:53 10/12/24 03:53 Labs: Laboratory Results - last 24 hr 10/10/24 10/10/24 10/10/24 17:29 18:28 21:24 WBC 24.0 H D RBC 3.38 L Hgb 9.7 L Hct 32.2 L MCV 95 MCH 28.7 MCHC 30.1 L RDW Std Deviation 63.4 H Plt Count 226 D Neut % (Auto) 93 H Lymph % (Auto) 2 L [place] % (Auto) 3 Eos % (Auto) 0 Baso % (Auto) 1 Neut # (Auto) 22.3 H Lymph # (Auto) 0.5 L [place] # (Auto) 0.8 Eos # (Auto) 0.1 Baso # (Auto) 0.1 Immature Gran # (Auto) 0.16 H Absolute Nucleated RBC 0.03 H Immature Gran % 1 H Nucleated RBC % 0 PT INR APTT Sodium 135 L Potassium 3.7 D Chloride 97 L Carbon Dioxide 26.3 Anion Gap 12 BUN 21 Creatinine 3.0 H D Estim Creat Clear Calc 19.4 L eGFR 18 L BUN/Creatinine Ratio 7 L Glucose 88 Calculated Osmolality 272 L Lactic Acid 2.4 H 3.1 H Calcium 8.4 Corrected Calcium 9.1 Phosphorus 4.2 Magnesium 1.9 Total Bilirubin 1.3 H AST 35 H ALT 16 Alkaline Phosphatase 138 H Total Protein 5.9 Albumin 3.1 L Globulin 2.8 Albumin/Globulin Ratio 1.1 L 10/11/24 04:50 WBC 20.4 H RBC 3.24 L Hgb 9.4 L Hct 31.3 L MCV 97 MCH 29.0 MCHC 30.0 L RDW Std Deviation 65.2 H Plt Count 216 Neut % (Auto) 91 H Lymph % (Auto) 4 L [place] % (Auto) 3 Eos % (Auto) 1 Baso % (Auto) 1 Neut # (Auto) 18.6 H Lymph # (Auto) 0.7 L [place] # (Auto) 0.7 Eos # (Auto) 0.2 Baso # (Auto) 0.1 Immature Gran # (Auto) 0.15 H Absolute Nucleated RBC 0.02 H Immature Gran % 1 H Nucleated RBC % 0 PT 25.8 H INR 2.5 H APTT 44.4 H Sodium 134 L Potassium 3.8 Chloride 95 L Carbon Dioxide 23.6 Anion Gap 15 BUN 24 H Creatinine 3.3 H Estim Creat Clear Calc 17.6 L eGFR 16 L BUN/Creatinine Ratio 7 L Glucose 72 L Calculated Osmolality 271 L Lactic Acid Calcium 8.6 Corrected Calcium 9.3 Phosphorus 6.0 H Magnesium 1.9 Total Bilirubin 1.5 H AST 33 ALT 18 Alkaline Phosphatase 157 H Total Protein 5.9 Albumin 3.1 L Globulin 2.8 Albumin/Globulin Ratio 1.1 L ABG Interpretation ABG results: 10/09/24 10/09/24 14:05 14:30 ABG pH Cancelled 7.45 ABG pCO2 Cancelled 30 L ABG pO2 Cancelled 59 L* ABG HCO3 Cancelled 20 ABG O2 Saturation Cancelled 91 ABG Base Excess Cancelled -3 Quality Measures Quality Measures none Assessment & Plan Assessment Current Active Medications: Generic Name Dose Route Start Last Admin Trade Name Freq PRN Reason Stop Dose Admin Acetaminophen 650 mg 10/07/24 22:21 10/09/24 13:42 Acetaminophen 325 Mg Tablet PO 11/06/24 22:20 650 mg Q6H PRN Administration Fever >101.5 Hydrocodone Bitart/Acetaminophen 1 tab 10/08/24 12:14 10/10/24 19:37 Hydrocodone/Apap 5/325 Tablet PO 10/13/24 12:13 1 tab Q4HR PRN Administration PAIN SCALE 4-10(Mod-Sev Albuterol 2.5 mg 10/08/24 07:45 10/11/24 07:37 Albuterol Rt 2.5 Mg/0.5 Ml Nebu INH 11/07/24 07:44 2.5 mg TID WINSTON Administration Albuterol 2.5 mg 10/08/24 07:38 Albuterol Rt 2.5 Mg/0.5 Ml Nebu INH 11/07/24 10:59 Q4HRRT PRN SOB or Wheeze Allopurinol 100 mg 10/08/24 09:00 10/10/24 12:23 Allopurinol 100 Mg Tablet PO 11/07/24 08:59 100 mg QDAY WINSTON Administration Amiodarone HCl 200 mg 10/10/24 09:00 10/10/24 12:23 Amiodarone Hcl 200 Mg Tablet PO 11/09/24 08:59 Not Given QDAY WINSTON Atorvastatin Calcium 20 mg 10/09/24 21:00 10/10/24 21:38 Atorvastatin Calcium 20 Mg Tablet PO 11/08/24 20:59 20 mg HS WINSTON Administration Posaconazole 100 Mg 0 ea 10/08/24 11:30 10/10/24 12:25 Delayed Release PO 11/07/24 11:29 4 tablet Tablet DAILY WINSTON Administration Dextrose 25 ml 10/07/24 22:47 Dextrose 50%-Water Inj 50 Ml Syringe IV 11/06/24 22:46 Q15MIN PRN BG 50-70 responsive npo pt Dextrose 50 ml 10/07/24 22:47 Dextrose 50%-Water Inj 50 Ml Syringe IV 11/06/24 22:46 Q15MIN PRN BG <50 OR BG <70 & pt unresponsive Furosemide 20 mg 10/08/24 09:00 10/08/24 09:30 Furosemide 20 Mg Tablet PO 11/07/24 08:59 20 mg BID WINSTON Administration Glucagon 1 mg 10/07/24 22:47 Glucagon Inj 1 Mg Vial IM Q15MIN PRN BG <70, and no IV access Hydroxychloroquine Sulfate 200 mg 10/08/24 09:00 10/10/24 21:38 Hydroxychloroquine 200 Mg Tablet PO 10/15/24 08:59 200 mg BID WINSTON Administration Piperacillin/Tazobactam/Dextrose 50 mls @ 12.5 mls/hr 10/10/24 06:00 10/11/24 05:36 Zosyn IV 10/17/24 05:59 12.5 mls/hr Q12H WINSTON Administration Albumin Human 25 gm in 100 mls @ 100 mls/min 10/10/24 08:27 Albuminar-25 Ivpb IV PRN PRN DIALYSIS Norepinephrine/Dextrose 8 mg in 250 mls @ 5.634 mls/hr 10/10/24 16:20 10/11/24 08:11 Levophed In D5w 8mg/250ml IV 11/09/24 16:19 0.49 mcg/kg/min .Q24H PRN 55.217 mls/hr PER PROTOCOL Titration Protocol 0.05 MCG/KG/MIN Vasopressin/Sodium Chloride 20 unit in 100 mls @ 9 mls/hr 10/10/24 17:55 10/11/24 02:29 Vasostrict/Ns Ivpb IV 11/09/24 17:54 0.03 unit/min .Q11H7M PRN 9 mls/hr PER PROTOCOL Administration Protocol 0.03 UNIT/MIN Magnesium Sulfate 2 gm in 50 mls @ 25 mls/hr 10/11/24 07:53 Magnesium Sulfate Ivpb IV 10/11/24 09:52 X1 ONE Midodrine 10 mg 10/07/24 22:45 10/11/24 05:37 Midodrine 5 Mg Tablet PO 11/06/24 22:44 10 mg TID WINSTON Administration Pantoprazole Sodium 40 mg 10/10/24 18:00 10/10/24 18:23 Pantoprazole Inj 40 Mg Vial IVP 11/09/24 17:59 40 mg QDAY WINSTON Administration Pharmacy Consult 1 each 10/09/24 20:57 Pharmacy Renal Dose Adjustment 1 Ea XX 11/08/24 20:56 PRN PRN CONSULT Prednisone 5 mg 10/08/24 09:00 10/10/24 12:23 Prednisone 5 Mg Tablet PO 11/07/24 08:59 5 mg QAM WINSTON Administration Pregabalin 75 mg 10/10/24 09:00 10/10/24 12:24 Pregabalin 75 Mg Capsule PO 11/09/24 08:59 75 mg QDAY WINSTON Administration Sevelamer Carbonate 0.8 gm 10/11/24 08:45 Sevelamer Carbonate 0.8 Gm Packet (Non-Formulary) PO 11/10/24 08:44 TIDWM WINSTON Sodium Chloride 3 ml 10/08/24 07:38 10/11/24 07:36 Sodium Chloride Rt Arlen 0.9% 3 Ml Nebu INH 11/07/24 07:37 3 ml PRN PRN Administration SOLN Tacrolimus 0.5 mg 10/08/24 13:00 10/08/24 13:11 Tacrolimus 0.5 Mg Capsule (Non-Formulary) PO 11/07/24 12:59 0.5 mg TUTHSA WINSTON Administration Plan Elma Vela is a 59-year-old female with medical history of SLE, lupus nephritis status post kidney transplant in 2019, ESRD (HD on M, F), antiphospholipid antibody syndrome (warfarin), A-fib (on amiodarone), 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 She follows with PCP Dr. Ozuna, physical therapist clinic director in [place], and pantry attendant Dr. Nelson. Currently on warfarin 2.5 mg p.o. every other day for her antiphospholipid antibody syndrome. Given that patient is ESRD, nephrology was consulted, with last dialysis session being Monday morning, 10/07. #ESRD on hemodialysis M, F #Lupus nephritis status post kidney transplant in 2019 Rapid response called on 10/09 at 1:45 PM for acute change in mental status with new onset fevers (102.3 ?F) and MAP less than 65. Sepsis alert called with suspected source being partial cholecystectomy from 04/2024. Given that patient BP did not respond to IVF, upgraded to ICU for further management. Repeat labs significant for WBC increase from 7.6 to 15.9. ABG showed pH 7.45, pCO2 30, pO2 59. Lactate of 4.7. CT A/P: Cholecystostomy catheter in satisfactory position without signs of abscesses or other explicit inflammatory/infectious changes. Planned for downgrade on 10/11, but cancelled due to hypotension requiring presser support. ? Received HD yesterday, so will hold off on outpatient regimen of M, F and will plan for HD tomorrow ? Renally dose medications ? Avoid nephrotoxic agents #Presyncope secondary to hypoglycemia- on IVF #Symptomatic hypoglycemia #HFpEF 55 to 60%) #Paroxysmal A-fib on amiodarone #Mitral stenosis #SLE #Antiphospholipid antibody syndrome, on warfarin #Type 2 diabetes mellitus, insulin-dependent #Gout #Valley fever #Hypokalemia ? Continue management per primary team ----- Plan discussed with attending physician Dr. Demetrice Hussein MD PGY-1 Internal Medicine Attending Provider Attestation/Addendum Patient seen and examined with resident physician Dr. Walker. Note reviewed, agree with findings and recommendations. Patient currently seen in ICU. With septic shock. On pressors. Prognosis remains guarded. Family aware she has 2 drains. Did receive dialysis yesterday.
--- NOTE | 2024-10-11 10:36 | PC.CM ---
Addendum entered by Rishi Marino RN 10/11/24 14:53: , 1453- Call to [facility] to request Authorization prior to transfer to [facility], Spoke with Ale , Ref ID# [id number], she informed me that prior auth cannot be given until patient is at receiving facility, she instructed me to call [facility] and provide them with the reference number and give them a verbal authorization to accept patient. Called [facility] transfer center and informed them of this, they noted reference number and phone number for [facility] prior authorization line. Addendum entered by Rishi Marino RN 10/11/24 14:16: 1415- Received call from DEL Workman at [facility], patient declined per ELSA Johnson. Dr. Mullins reviewed patient's chart and imaging studies, he does not feel patient is in need of ERCP. Updated ICU CN Mignon, she will update Dr. Castillo. Addendum entered by Rishi Marino RN 10/11/24 13:06: 1237- Received call from DEL Franco at [facility] transfer center, patient declined due to capacity. Addendum entered by Rishi Marino RN 10/11/24 12:29: Packet sent to [facility] per Dr. Castillo's request. Awaiting responses at this time. [facility] has declined due to capacity, spoke to Masha in transfer center. Addendum entered by Rishi Marino RN 10/11/24 11:53: Received call from DEL Tee at [facility], informed that they are accepting patient by Dr. Mantilla, they do not have a bed available at this time and due to high census they do recommend contacting other facilities. Dr. Mantilla has spoken to Dr. Castillo and updated him with this information. TC RN spoke to Dr. Castillo in ICU regarding recommendation to reach out to other facilities, he would like to expand the search to other hospitals. Will send packets to [facility], [facility], and [facility]. Original Note: Received call from Dr. Diana in ICU requesting transfer to [facility] for work-up and ERCP. Patient had gallbladder surgery at [facility] and was discharged with 2 drains, plan was for ERCP later this month at [facility] with Dr. Carlo Perez. Transfer packet created and clinicals sent to [facility]. CD with images created and placed in packet.
--- NOTE | 2024-10-11 10:48 | EKG_ITS ---
[facility] Test Date: 2024-10-11 Pat Name: JUSTINE DAIGLE [facility] Glass Blower: STUDENT : 1965 Requested By: Monse Diana Order Number: [id number] Reading MD: Monse Diana Measurements Intervals [place] Rate: 85 P: 116 [place]: 190 QRS: 209 QRSD: 180 T: 60 QT: 386 QTc: 459 Interpretive Statements SINUS RHYTHM WITH SINUS ARRHYTHMIA INTRAVENTRICULAR CONDUCTION DELAY LATERAL MYOCARDIAL INFARCTION , PROBABLY RECENT ACUTE WA Compared to ECG 10/11/2024 10:55:03 Intraventricular conduction delay now present Myocardial infarct finding now present Left bundle-branch block no longer present /store/S0/[id number]
[2024-10-11 10:52] LABS: Lactate (Lactic Acid) 6.7 mMol/L (0.4-2.0)
[2024-10-11] MEDS: HYDROCORTISONE SOD SUCC INJ 100 MG VIAL IV (10:55)
[2024-10-11] MEDS: HYDROcodone/APAP 5/325 TABLET 1 TAB PO (10:55)
[2024-10-11 11:19] LABS: Troponin I 5.423 ng/mL (0.0-0.045)
[2024-10-11] MEDS: MEROPENEM INJ 1,000 MG in SODIUM CHLORIDE 0.9% (P) 50 ML 100 MG IV ×2 (11:37→21:57)
[2024-10-11] MEDS: PHENYLEPHRINE HCL 40 MG in SODIUM CHLORIDE 0.9% 96 ML 4.56 MG IV (11:38)
--- NOTE | 2024-10-11 12:00 | ESPR_ITS ---
<Statement entered by Kay Castillo MD - 10/13/24 10:15> TOTAL CC TIME: 115 MIN I saw and evaluated the patient. I reviewed the resident?s note and agree with findings and plan as documented in the resident?s note. Upon my evaluation, this patient had a high probability of imminent or life- threatening deterioration due to cardiogenic and septic shock, which required my direct attention, intervention, and personal management. This time is exclusive of time spent on procedures, which are documented separately if performed. I personally spoke with Dr. Mantilla at [facility] to have the patient transferred due to our suspicion of worsening septic shock possibly from complications related to her partial cholecystectomy. Green bile can be seen leaking around the insertion site of the cholecystostomy tube however family says that that has been a chronic problem. However the patient does have increasing abdominal pain. The CT scan was not particularly helpful given that the prior fluid collection has been declining in size and no obvious fluid can be seen around the cholecystostomy tube to suggest that there is continued leakage. No other intra-abdominal source was identified Antibiotics were broadened leukocytosis is slightly better The patient felt better this morning but later developed increasing vasopressor requirements. She then developed bradycardia with hypotension. Repeat ultrasound identified blood swirling around the IVC and right ventricle with very poor right ventricular wall motion and septal wall motion akinesis. Repeat EKG identifies increasing ST elevation in the setting of an old bundle branch block. Significant concern for concurrent cardiogenic shock due to coronary ischemia. case was discussed with Dr. Waters the hotel services sales representative who is familiar with her case and he agrees. also administered flumazenil given that she previously received 1 mg of Ativan for agitation. Level of consciousness did improve and she was able to follow commands but yet remains severely lethargic requiring persistent Ambu bag assisted oxygenation and ventilation The patient's was in the room and I I updated him with our concerns. At that time he was acceptable to her being intubated given her severe hemodynamic instability and declining mental status. Dobutamine was started and the patient was intubated <Statement entered by Enzo Birmingham DO - 10/12/24 06:13> Senior attestation: Patient was examined and case was reviewed with team including attending physician. Note reviewed, I agree with most of its contents and agree with the patient's care. Patient's condition continues to remain critical. Today has required high-dose levophed with vasopressin with goal of blood pressure MAP > 65. Body fluid cultures from MATIAS and biliary drain reveal GNR, antibiotics adjusted to merem. In late afternoon, patient was noted to become bradycardic in 30s, occasionally in 20s. Patient was treated with atropine, epinephrine, flumazenil, and bicarbonate pushes, repeat ABGs, troponin, and echo ordered, hotel services sales representative Dr. Waters notified. [facility] transfer team was kept updated today on patient's condition, [facility] has accepted patient for transfer however pending bed availability. In the meantime, will continue seeking transfer to other hospitals, so far declined by [facility], [facility] [place], and [facility]. Patient's condition remains critical, have added additional vasopressors including dobutamine, phenylephrine, and epinephrine to maintain MAP goals. Patient's present at bedside has been updated. Enzo Birmingham DO PGY-3 Documentation for date of: 10/11/24 Subjective Subjective Interval history: Ms. 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 Patient reports that she has chronic diarrhea since August 2024 after her partial cholecystectomy, was scheduled for dialysis in a.m., did not eat during the day reported injecting herself with her scheduled insulin 70/30 5 units the night before, reported that she was starting to see black and had the feeling of passing out. Patient presented to ED, glucose on arrival was 57 improved with juice and crackers. Patient was admitted for treatment and management of presyncope secondary to hypoglycemia. With the progression of hospital course patient had elevated troponins, cardiology was consulted due to concern of NSTEMI and was scheduled for cardiac catheterization on 10/10/23. Patient had rapid response called earlier today for acute change in patient's mental status, new onset fever with MAP in 60s, patient's antibiotic regimen widened to vancomycin and levofloxacin, ICU team was consulted. On assessment at bedside today patient has no complaints, has minimal right upper quadrant tenderness, patient reported that she was scheduled for ERCP this month with possible stent placement in bile duct and removal of bile drain and MATIAS drain. Patient was found to be fluid responsive on assessment via NICOM, otherwise patient had no complaints, mean arterial pressure around 60s on assessment, decision was made to upgrade patient further to intensive care unit for source identification and control of possible sepsis in setting of septic shock with elevated lactate. 10/10/24: Patient seen and examined at bedside, did not need any IV pressors overnight, patient alert oriented x 3, was eating breakfast this morning and pelvis showed bilateral pneumonia, patient on Zosyn currently for treatment. Patient received hemodialysis, no fluid was removed. Eventually later in the day, patient's mean arterial pressure with noted rate less than 65, multiple readings showed mean arterial pressure around 50, patient started on IV Levophed and vasopressin, placed arterial line, central line. Bedside assessment, on ultrasound showed dilated IVC, noncompressible patient not good candidate for fluid resuscitation. Patient's family at bedside requested transfer to [facility], consult was placed to transfer nurse, request for transfer was denied by [facility] as the patient does not meet criteria for acute transfer and [facility] is at capacity per transfer nurse. Will continue to monitor and manage patient in ICU, will not be downgraded, cancelled transfer. 10/11/24: Patient seen and examined at bedside, patient complained of significant abdominal tenderness, was requiring high-dose Levophed along with vasopressin, cultures from MATIAS drain and biliary drain showed 4+ WBC and gram- negative rods, patient's antibiotic therapy escalated to IV meropenem and Zyvox, patient examined at bedside, findings discussed with patient's daughter and patient's , decision was made to transfer the patient to [facility]. Transfer center was notified and reached out to patient's primary surgeon Dr. Carlo Perez and request for conducting peer to peer review with Dr. Carlo Pineda was made, ICU protective signal operator Dr. Castillo discussed the case and concerning findings in detail with Dr. Perez who decided to accept the patient at [facility], patient pending bed at [facility]. Attempt was made to reach out to different facilities, patient declined by [facility], [facility] and [facility] due to different reasons. Meanwhile patient's pressor requirement escalated and patient was started on phenylephrine, patient started on stress dose steroids, was given around 1 L bolus of LR. Patient's mean arterial pressure improved, ordered follow-up lactate. Will continue to monitor patient. Exam Vital Signs Temp Pulse Resp BP Pulse Ox O2 Del Method O2 Flow Rate 98.1 F 60 24 H 72/54 L 93 L Nasal Cannula 11 10/11/24 12:01 10/11/24 14:45 10/11/24 14:45 10/11/24 14:45 10/11/24 14:45 10/11/24 08:00 10/11/24 14:22 Narrative Exam Physical Exam General: Awake and in no acute distress. Conversational and ill-appearing . HEENT: Normocephalic, atraumatic, mucous membranes moist. Heart: Irregular rate and rhythm, no murmurs. Lungs: Clear to auscultation with no wheezing or crackles. Abdomen: Soft, nondistended, mild tenderness noted right upper quadrant, Alcal[place] sign negative, positive bowel sounds. ?No guarding or rebound tenderness. Neurologic: Alert and oriented x3, no gross neurological deficit, and patient able to move all 4 extremities. Extremities: No edema. Discoloration noted bilaterally legs, possibly secondary to venous stasis, left upper extremity edema noted. Skin: Stage I sacral ulcer, unstageable wound left buttock, biliary drain, MATIAS drain noted. Left femoral central line, femoral arterial line noted. Objective Labs 10/11/24 15:09 10/11/24 15:09 Labs: Laboratory Results - last 24 hr 10/10/24 10/10/24 10/10/24 17:29 18:28 21:24 WBC 24.0 H D RBC 3.38 L Hgb 9.7 L Hct 32.2 L MCV 95 MCH 28.7 MCHC 30.1 L RDW Std Deviation 63.4 H Plt Count 226 D Neut % (Auto) 93 H Lymph % (Auto) 2 L [place] % (Auto) 3 Eos % (Auto) 0 Baso % (Auto) 1 Neut # (Auto) 22.3 H Lymph # (Auto) 0.5 L [place] # (Auto) 0.8 Eos # (Auto) 0.1 Baso # (Auto) 0.1 Immature Gran # (Auto) 0.16 H Absolute Nucleated RBC 0.03 H Immature Gran % 1 H Nucleated RBC % 0 PT INR APTT Puncture Site ABG pH ABG pCO2 ABG pO2 ABG HCO3 ABG O2 Saturation ABG Base Excess Oxygen Liter Flow Sodium 135 L Potassium 3.7 D Chloride 97 L Carbon Dioxide 26.3 Anion Gap 12 BUN 21 Creatinine 3.0 H D Estim Creat Clear Calc 19.4 L eGFR 18 L BUN/Creatinine Ratio 7 L Glucose 88 Calculated Osmolality 272 L Lactic Acid 2.4 H 3.1 H Calcium 8.4 Corrected Calcium 9.1 Phosphorus 4.2 Magnesium 1.9 Total Bilirubin 1.3 H AST 35 H ALT 16 Alkaline Phosphatase 138 H Troponin I Total Protein 5.9 Albumin 3.1 L Globulin 2.8 Albumin/Globulin Ratio 1.1 L 10/11/24 10/11/24 10/11/24 04:50 10:30 12:11 WBC 20.4 H RBC 3.24 L Hgb 9.4 L Hct 31.3 L MCV 97 MCH 29.0 MCHC 30.0 L RDW Std Deviation 65.2 H Plt Count 216 Neut % (Auto) 91 H Lymph % (Auto) 4 L [place] % (Auto) 3 Eos % (Auto) 1 Baso % (Auto) 1 Neut # (Auto) 18.6 H Lymph # (Auto) 0.7 L [place] # (Auto) 0.7 Eos # (Auto) 0.2 Baso # (Auto) 0.1 Immature Gran # (Auto) 0.15 H Absolute Nucleated RBC 0.02 H Immature Gran % 1 H Nucleated RBC % 0 PT 25.8 H INR 2.5 H APTT 44.4 H Puncture Site Arterial Line ABG pH 7.35 D ABG pCO2 30 L ABG pO2 58 L* ABG HCO3 17 L ABG O2 Saturation 89 L ABG Base Excess -8 L Oxygen Liter Flow 2 Sodium 134 L Potassium 3.8 Chloride 95 L Carbon Dioxide 23.6 Anion Gap 15 BUN 24 H Creatinine 3.3 H Estim Creat Clear Calc 17.6 L eGFR 16 L BUN/Creatinine Ratio 7 L Glucose 72 L Calculated Osmolality 271 L Lactic Acid 6.7 H* Calcium 8.6 Corrected Calcium 9.3 Phosphorus 6.0 H Magnesium 1.9 Total Bilirubin 1.5 H AST 33 ALT 18 Alkaline Phosphatase 157 H Troponin I 5.423 H* D Total Protein 5.9 Albumin 3.1 L Globulin 2.8 Albumin/Globulin Ratio 1.1 L 10/11/24 10/11/2425 14:00 15:07 15:09 WBC 26.9 H D RBC 3.10 L Hgb 8.8 L Hct 30.5 L MCV 98 MCH 28.4 MCHC 28.9 L RDW Std Deviation 66.3 H Plt Count 218 Neut % (Auto) 92 H Lymph % (Auto) 4 L [place] % (Auto) 3 Eos % (Auto) 0 Baso % (Auto) 0 Neut # (Auto) 24.8 H Lymph # (Auto) 0.9 L [place] # (Auto) 0.8 Eos # (Auto) 0.0 Baso # (Auto) 0.1 Immature Gran # (Auto) 0.23 H Absolute Nucleated RBC 0.05 H Immature Gran % 1 H Nucleated RBC % 0 PT INR APTT Puncture Site Site Not Noted ABG pH 7.09 L* D ABG pCO2 44 D ABG pO2 87 D ABG HCO3 13 L ABG O2 Saturation 92 ABG Base Excess -16 L Oxygen Liter Flow 15 Sodium Potassium Chloride Carbon Dioxide Anion Gap BUN Creatinine Estim Creat Clear Calc eGFR BUN/Creatinine Ratio Glucose Calculated Osmolality Lactic Acid 12.8 H* 16.0 H* Calcium Corrected Calcium Phosphorus Magnesium Total Bilirubin AST ALT Alkaline Phosphatase Troponin I Total Protein Albumin Globulin Albumin/Globulin Ratio ABG Interpretation ABG results: 10/09/24 10/09/24 10/11/24 14:05 14:30 12:11 ABG pH Cancelled 7.45 7.35 D ABG pCO2 Cancelled 30 L 30 L ABG pO2 Cancelled 59 L* 58 L* ABG HCO3 Cancelled 20 17 L ABG O2 Saturation Cancelled 91 89 L ABG Base Excess Cancelled -3 -8 L 10/11/24 15:07 ABG pH 7.09 L* D ABG pCO2 44 D ABG pO2 87 D ABG HCO3 13 L ABG O2 Saturation 92 ABG Base Excess -16 L Quality Measures Quality Measures none Assessment & Plan Assessment Current Active Medications: Generic Name Dose Route Start Last Admin Trade Name Freq PRN Reason Stop Dose Admin Acetaminophen 650 mg 10/07/24 22:21 10/09/24 13:42 Acetaminophen 325 Mg Tablet PO 11/06/24 22:20 650 mg Q6H PRN Administration Fever >101.5 Hydrocodone Bitart/Acetaminophen 1 tab 10/08/24 12:14 10/11/24 10:55 Hydrocodone/Apap 5/325 Tablet PO 10/13/24 12:13 1 tab Q4HR PRN Administration PAIN SCALE 4-10(Mod-Sev Albuterol 2.5 mg 10/08/24 07:45 10/11/24 14:21 Albuterol Rt 2.5 Mg/0.5 Ml Nebu INH 11/07/24 07:44 2.5 mg TID WINSTON Administration Albuterol 2.5 mg 10/08/24 07:38 Albuterol Rt 2.5 Mg/0.5 Ml Nebu INH 11/07/24 10:59 Q4HRRT PRN SOB or Wheeze Allopurinol 100 mg 10/08/24 09:00 10/11/24 08:52 Allopurinol 100 Mg Tablet PO 11/07/24 08:59 100 mg QDAY WINSTON Administration Atorvastatin Calcium 20 mg 10/09/24 21:00 10/10/24 21:38 Atorvastatin Calcium 20 Mg Tablet PO 11/08/24 20:59 20 mg HS WINSTON Administration Posaconazole 100 Mg 0 ea 10/08/24 11:30 10/11/24 08:53 Delayed Release PO 11/07/24 11:29 4 tablet Tablet DAILY WINSTON Administration Dextrose 25 ml 10/07/24 22:47 Dextrose 50%-Water Inj 50 Ml Syringe IV 11/06/24 22:46 Q15MIN PRN BG 50-70 responsive npo pt Dextrose 50 ml 10/07/24 22:47 Dextrose 50%-Water Inj 50 Ml Syringe IV 11/06/24 22:46 Q15MIN PRN BG <50 OR BG <70 & pt unresponsive Furosemide 20 mg 10/08/24 09:00 10/08/24 09:30 Furosemide 20 Mg Tablet PO 11/07/24 08:59 20 mg BID WINSTON Administration Glucagon 1 mg 10/07/24 22:47 Glucagon Inj 1 Mg Vial IM Q15MIN PRN BG <70, and no IV access Hydrocortisone Sodium Succinate 50 mg 10/11/24 18:00 Hydrocortisone Sod Succ Inj 100 Mg Vial IV 10/16/24 17:59 Q6HR WINSTON Albumin Human 25 gm in 100 mls @ 100 mls/min 10/10/24 08:27 Albuminar-25 Ivpb IV PRN PRN DIALYSIS Norepinephrine/Dextrose 8 mg in 250 mls @ 5.634 mls/hr 10/10/24 16:20 10/11/24 14:00 Levophed In D5w 8mg/250ml IV 11/09/24 16:19 0.63 mcg/kg/min .Q24H PRN 70.993 mls/hr PER PROTOCOL Titration Protocol 0.05 MCG/KG/MIN Vasopressin/Sodium Chloride 20 unit in 100 mls @ 9 mls/hr 10/10/24 17:55 10/11/24 02:29 Vasostrict/Ns Ivpb IV 11/09/24 17:54 0.03 unit/min .[id number] PRN 9 mls/hr PER PROTOCOL Administration Protocol 0.03 UNIT/MIN Meropenem 1,000 mg/ Sodium 50 mls @ 100 mls/hr 10/11/24 10:45 10/11/24 11:37 Chloride IV 10/18/24 10:44 100 mls/hr Q12HR W[place]ON Administration Protocol Phenylephrine HCl 40 mg/ 100 mls @ 4.56 mls/hr 10/11/24 10:55 10/11/24 14:52 Sodium Chloride IV 11/10/24 10:54 1.05 mcg/kg/min .[id number] PRN 9.576 mls/hr Per Sepsis Protocol Titration Protocol 0.5 MCG/KG/MIN Linezolid 600 mg in 300 mls @ 300 mls/hr 10/11/24 11:43 10/11/24 12:50 Zyvox Ivpb IV 10/18/24 11:42 300 mls/hr Q12HR W[place]ON Administration Dobutamine HCl/Dextrose 500 mg in 250 mls @ 1.824 mls/hr 10/11/24 15:10 Dobutrex/D5w Ivpb IV 11/10/24 15:09 .Q24H PRN PER PROTOCOL Protocol 1 MCG/KG/MIN Fentanyl Citrate 2,500 mcg in 250 mls @ 2.5 mls/hr 10/11/24 15:24 Sublimaze Inj 2,500 Mcg/250 Ml Bag IV 10/16/24 15:23 .Q24H PRN PER PROTOCOL Protocol 25 MCG/HR Epinephrine/Sodium Chloride 4 mg in 250 mls @ 11.4 mls/hr 10/11/24 15:27 Adrenalin/Ns 4 Mg Ivpb IV 11/10/24 15:26 .[id number] PRN per protocol Protocol 0.05 MCG/KG/MIN Midodrine 10 mg 10/07/24 22:45 10/11/24 14:04 Midodrine 5 Mg Tablet PO 11/06/24 22:44 10 mg TID WINSTON Administration Pantoprazole Sodium 40 mg 10/10/24 18:00 10/11/24 08:53 Pantoprazole Inj 40 Mg Vial IVP 11/09/24 17:59 40 mg QDAY W[place] Administration Pharmacy Consult 1 each 10/09/24 20:57 Pharmacy Renal Dose Adjustment 1 Ea XX 11/08/24 20:56 PRN PRN CONSULT Prednisone 5 mg 10/08/24 09:00 10/11/24 08:54 Prednisone 5 Mg Tablet PO 11/07/24 08:59 5 mg QAM W[place] Administration Pregabalin 75 mg 10/10/24 09:00 10/11/24 08:51 Pregabalin 75 Mg Capsule PO 11/09/24 08:59 75 mg QDAY WINSTON Administration Sevelamer Carbonate 0.8 gm 10/11/24 08:45 10/11/24 12:17 Sevelamer Carbonate 0.8 Gm Packet (Non-Formulary) PO 11/10/24 08:44 Not Given TIDWM WINSTON Sodium Chloride 3 ml 10/08/24 07:38 10/11/24 14:21 Sodium Chloride Rt Arlen 0.9% 3 Ml Nebu INH 11/07/24 07:37 3 ml PRN PRN Administration SOLN Tacrolimus 0.5 mg 10/08/24 13:00 10/08/24 13:11 Tacrolimus 0.5 Mg Capsule (Non-Formulary) PO 11/07/24 12:59 0.5 mg TUTHSA WINSTON Administration Plan Assessment and Plan: Summary: Ms. 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 Patient admitted for further workup, upgraded to intensive care unit on 10/09/2024 due to concern of suspicion of septic shock, no source. Neurological Patient is alert oriented x 3, stable. Cardiology #Shock Differential diagnosis: Distributive shock (high suspicion of septic shock, source pneumonia vs biliary tract, patient is immunocompromised status post renal transplant less likely neurogenic/anaphylactic) Cardiogenic shock (elevated troponin, echo shows mild hypokinesis inferior/lateral/posterior wall, no EKG changes, chest pain, bedside echo shows good pumping effect) Ruled out hypovolemic shock (patient does have poor p.o. intake, no blood loss, acute volume loss noted), obstructive shock (no significant respiratory distress noted) Diagnostic workup: Lactate 4.7, patient has fevers, fmax 102.3, relatively hypotensive compared to baseline, elevated WBC count Bedside NICOM assessment shows 31% SVI, patient fluid responsive Patient has chronic indwelling drains, biliary and MATIAS drain as possible source of infection, was scheduled for repeat ERCP with stent placement this month, possible source Patient was given 500 cc bolus of normal saline 10/09, blood pressure improved, did not need pressors overnight CTAP Moderate enlargement cardiac contour, Bibasilar pneumonia, Primary hepatocellular disease, Percutaneous cholecystostomy drainage catheter satisfactory position, Marked decrease in size of cystic mass in the right retroperitoneum with drainage catheter satisfactory position, Mild ascites, End- stage [place] kidneys, Left transplant kidney does not exhibit hydronephrosis 10/11-patient had concern of significant abdominal tenderness, did tolerate breakfast this morning, cultures for biliary drain and MATIAS drain show 4+ WBC and GNR. Treatment: -Started on Levophed, vasopressin and phenylephrine -Started on stress dosed steroids, discontinued home dose of prednisone -Was given 500 cc bolus of LR x 2 -Patient will be started on IV meropenem and linezolid (10/11- -patient was given IV levofloxacin and vancomycin (10/09-10/09), Zosyn (10/09- 10/11) -Continue home dose midodrine 10 three times daily -Hold tacrolimus with concern of septic shock -Placed arterial line, central line Follow-up: -Follow culture of biliary drain and MATIAS drain -Monitor for fevers -Optimize pressor requirement -Follow transfer status # NSTEMI Differential diagnosis: Demand ischemia vs NSTEMI type I Diagnostic workup: On admission patient denied any chest pain shortness of breath or any other atypical symptoms, presented with presyncope due to hypoglycemia On admission EKG shows A-fib with RVR, Patient's troponin peaked at 7.493 and is downtrending. Echo showed mild hypokinesis of inferior lateral and posterior wall, EF 45%, severe LA dilatation, severe degenerative mitral valve annulus calcification with moderate MV stenosis. EF decreased from 55% to 45% since last January 2024. Cardiology was consulted, patient was scheduled for cardiac cath on Treatment: -Will monitor for chest pain -Cardiology is consulted, no new recommendations currently Follow-up: -Monitor vitals closely #HFmEF EF 45% #History of atrial fibrillation #History of mitral stenosis # Concern of QTc prolongation Diagnostic workup: Patient currently does not look fluid overloaded, he is on 2 L nasal cannula saturating well ECHO 10/08: Normal LV size. with Mild systolic dysfunction. Mild hypokinesis inferior lateral and posterior wall. Estimated EF 45% Mild RV dilatation. Mild RV dysfunction. Estimated RVSP 73mmHg. Severe LA dilatation. Severe degegenerative mitral valve annulus calcification with MODERATE mitral valve stenosis, mean gradient 10mmHg. Pressure 1/2 time 105 with mitral valve area 2.1 sq cm by this method Modearte mitral regurgitation Moderate TR, Mild pulmic and mild aortic valve regurgitation. IVC dilated. EKG 10/09 shows QTc 515, patient is on amiodarone 200 daily, posaconazole 400 mg daily and hydroxychloroquine 200 mg twice daily Treatment: -Will hold Lasix for now -Repeat EKG in a.m. -Will keep potassium more than 4, magnesium more than 2 -Will hold oral amiodarone in a.m. due to concern of QTc prolongation Follow-up: -Will order repeat EKG in the morning -Follow telemetry consider amiodarone if patient has A-fib RVR Pulmonary #Community-acquired pneumonia versus healthcare associated pneumonia see cardiology-shock for details Gastrointestinal #Chronic diarrhea #Status post partial cholecystectomy, biliary and MATIAS drain intact Differential diagnosis: Patient reports chronic diarrhea since biliary drain was placed, reports was placed in August Diagnostic workup: Minimal abdominal tenderness at bedside, some in right upper quadrant Currently has no complaints of diarrhea CTAP Moderate enlargement cardiac contour, Bibasilar pneumonia, Primary hepatocellular disease, Percutaneous cholecystostomy drainage catheter satisfactory position, Marked decrease in size of cystic mass in the right retroperitoneum with drainage catheter satisfactory position, Mild ascites, End- stage [place] kidneys, Left transplant kidney does not exhibit hydronephrosis Treatment/Follow-up:: -Ordered CT abdomen pelvis -Will monitor for diarrhea Renal/Genitourinary # End-stage renal disease # Status post renal transplant # History of SLE with lupus nephritis status postrenal transplant on immunosuppression Differential diagnosis: Chronic transplant rejection Diagnostic workup: Patient is on dialysis outpatient Monday Abdominal ultrasound shows Cyst in transplant kidney,Atrophic [place] kidneys, No hydronephrosis of the transplant kidney Treatment: -Will continue with inpatient dialysis -Avoid nephrotoxic agents Follow-up: -Monitor closely urine output Endocrine #Type 2 diabetes mellitus, insulin-dependent #Presyncope likely secondary to #Hypoglycemia in the setting of insulin use and poor oral intake Differential diagnosis: Improved diabetes in setting of end-stage renal disease Diagnostic workup: Hemoglobin A1c 3.9 Patient's fingerstick blood glucose low Treatment/Follow-up: -Hold insulin -Monitor fingerstick blood glucose Hematology #History of antiphospholipid antibody syndrome (on Coumadin) #History of gout Diagnostic workup: Patient is taking allopurinol, hydroxychloroquine, tacrolimus, and prednisone. Goal INR for antiphospholipid syndrome it is 2-3. Treatment: Patient was scheduled for cardiac cath, was holding warfarin for goal INR less than 2 We will continue to hold warfarin for possible intervention Follow-up: -Follow INR in a.m. -Patient has paroxysmal A-fib, will consider heparin drip if needed -Hold home dose prednisone, started on stress dose steroids Infectious Disease # CAP versus HAP # Concern of abdominal infection, high suspicion of infection of biliary tract -See shock for details #Valley fever, by history Patient is on lifelong posaconazole by history Will resume home medication Integumentary/Musculoskeletal #Stage I sacral ulcer #Unstageable ulcer, left hip Wound care as needed Referral to wound care DVT prophylaxis: Therapeutic INR GI prophylaxis: Protonix Diet: Renal/dysphagia 3 Lines: Peripheral IV Code status: Full code Case discussed with Attending Dr. Castillo and Dr. Birmingham PGY3. Monse Diana PGY1 Disclaimer: This note was dictated by speech recognition. Minor errors in assembly machine operator may be present due to voice recognition software.
[2024-10-11] MEDS: RINGERS LACTATED 1000 ML 500 ML 999 ML IV ×2 (12:16→12:46)
[2024-10-11 12:23] LABS: Base Excess -8 (-3-3); HCO3 17 mEq/L (20-26); Inspired O2, VO2 Liters 2 L/min; O2 Saturation 89 % (91-98); PCO2 30 mmHg (32.0-48.0); pH, Arterial 7.35 (7.35-7.45)
[2024-10-11 12:24] LABS: Allen Test Performed/OK; Puncture Site Arterial Line
[2024-10-11 12:25] LABS: PO2 58 mmHg (83-108)
[2024-10-11] MEDS: Norepinephrine/D5W 8mg/250ml 8 MG/250 ML BAG 70.993 MG IV (12:50)
[2024-10-11] MEDS: LINEZOLID 600 MG IVPB 600 MG/300 ML BAG 300 MG IV ×2 (12:50→21:58)
[2024-10-11 13:48] LABS: Reflex Lactate? Y
--- NOTE | 2024-10-11 13:55 | PC.DIETICIAN ---
Patient meets ASPEN criteria for Severe chronic disease or condition related malnutrition due to: 1. Inadequate oral intake. 2. Significant unintentional weight loss (~80 lb in 8 months). 3. Moderate muscle wasting. 4. Moderate subcutaneous fat loss.
[2024-10-11] MEDS: LORazepam 0.5 MG TABLET PO (14:04)
[2024-10-11 14:22] LABS: Lactate (Lactic Acid) 12.8 mMol/L (0.4-2.0)
--- NOTE | 2024-10-11 14:53 | PC.NURSE ---
at [address] Birmingham, phenylephrine titrated up first, to attempt to titrate levo down
[2024-10-11 15:12] LABS: Base Excess -16 (-3-3); HCO3 13 mEq/L (20-26); O2 Saturation 92 % (91-98); PCO2 44 mmHg (32.0-48.0); PO2 87 mmHg (83-108)
[2024-10-11] MEDS: DOBUTamine/D5w 500 MG IVPB 500 MG/250 ML BAG IV (15:14)
[2024-10-11 15:16] LABS: Allen Test Not Performed; Inspired O2, VO2 Liters 15 L/min; Puncture Site Site Not Noted; pH, Arterial 7.09 (7.35-7.45)
--- NOTE | 2024-10-11 15:22 | XR_ITS ---
Examination: AP chest single view Technique: AP portable semiupright chest single view Exam date and time: October 11, 2024 1546 hrs. Comparison October 09, 2024 Findings: Enlarged cardiac contour with prominent vascular congestion and perihilar edema Significant superimposed pneumonia in the right lung Tracheal tube tip 3.7 cm above lolita Orogastric tube in the stomach Impression: [id number] heart failure Diffuse significant right lung pneumonia
[2024-10-11 15:26] LABS: Basophils # (Auto) 0.1 Thou/mm3 (0.0-0.2); Basophils % (Auto) 0 % (0-2.5); Eosinophils % (Auto) 0 % (0-10); Hematocrit 30.5 % (36.0-46.0); Immature Granulocytes % (Auto) 1 % (0-0); Immature Granulocytes Auto 0.23 Thou/mm3 (0.00-0.00); Lymphocytes # (Auto) 0.9 Thou/mm3 (1.0-4.8); Lymphocytes % (Auto) 4 % (10-50); Mean Corpuscular HGB Conc 28.9 g/dl (31.0-37.0); Mean Corpuscular Hemoglobin 28.4 pg (25.0-35.0); Mean Corpuscular Volume 98 fL (80-100); Monocytes # (Auto) 0.8 Thou/mm3 (0.0-0.8); Monocytes % (Auto) 3 % (0-12); Neutrophils # (Auto) 24.8 Thou/mm3 (1.8-7.7); Neutrophils % (Auto) 92 % (37-80); Nucleated Red Blood Cell # 0.05 Thou/mm3 (0.00-0.00); Nucleated Red Blood Cell % 0 /100 WBC (0); Platelet Count 218 Thou/mm3 (140-440); RDW Standard Deviation 66.3 fL (36.4-46.3); White Blood Count 26.9 Thou/mm3 (3.6-11.0)
[2024-10-11 15:32] LABS: Hemoglobin 8.8 g/dL (12.0-16.0)
[2024-10-11 15:49] LABS: Base Excess -9 (-3-3); HCO3 18 mEq/L (20-26); Inspired Oxygen, FIO2 100 %; O2 Saturation 99 % (91-98); PCO2 46 mmHg (32.0-48.0); PO2 131 mmHg (83-108)
--- NOTE | 2024-10-11 15:57 | ESOP_ITS ---
<Statement entered by Kay Castillo MD - 10/13/24 10:03> I was present for the for the entire duration of the procedure and was immediately available to provide assistance. Intubated due to worsening cardiogenic and septic shock with acute bradycardia and hypoxia Discussed the need for intubation with the patient's who requested that we continue to proceed with full measures of support including mechanical ventilation Procedures Procedure Date / Time 10/11/24 1527 Arterial Line Size (Gauge): 20 Intubation Indication(s): inability to protect airway Informed consent obtained: obtained from surrogate decision maker Time out done, and the following verified: correct patient, procedure, patient position and implants and/or equipment Sedative: etomidate Mg given: 20 Paralytic: rocuronium Mg given: 50 Laryngoscope: fiber optic video scope Assist device used: fiber optic device ET tube size: 7.5 ET tube uncuffed: Yes Tube secured depth (cm): 23 Tube secured location: teeth Tube placement confirmation: visualized tube passing through cords, equal breath sounds bilaterally, no breath sounds over epigastrium and confirmation by capnometry Patient tolerated procedure: well and no complications EBL(ml): 0 Intubation complications: none Additional comments: Procedure performed under supervision of disaster recovery consultant Dr. Castillo. Kimani Calixto MD, PGY 2. Disclaimer: This note was dictated by speech recognition. Minor errors in testing tech may be present due to voice recognition software.
--- NOTE | 2024-10-11 16:01 | EVENTNT_ITS ---
<Statement entered by Kay Castillo MD - 10/13/24 10:15> I saw and evaluated the patient. I reviewed the resident?s note and agree with findings and plan as documented in the resident?s note. Documentation for date of: 10/11/24 Event Note Event Note: Around 3 PM, patient's heart rate was noted to be in low 30s, patient got hypoxic, pulse ox he noted to be around 79, at bedside patient alert oriented, reported feeling dizzy pulse was appreciated. Patient was started on manual ventilation by Ambu bag, leads were attached, irregular rhythm noted on telemetry, patient was given epinephrine x 2, atropine x 1, bicarbonate x 3 magnesium x 1, flumazenil x 1, with manual ventilation by Ambu bag patient's oxygenation improved and patient's heart rate improved as well. Bedside echo showed significant strain in the right ventricle, high suspicion of cardiogenic shock, patient started on IV dobutamine, IV epinephrine. Due to patient's hemodynamic instability, decision was made to intubate the patient, patient's gave consent, patient was given rocuronium and etomidate and patient was intubated. Started on mechanical ventilation, patient started on fentanyl to maintain sedation, ordered repeat lactate, ABG, CBC, CMP, troponin. Decision was made to discontinue QT prolonging agents posaconazole, amiodarone and hydroxychloroquine. Patient's clerk typist Dr. Waters was informed, repeat echo ordered. Due to patient's therapeutic INR of 2.5 decision was made not to start patient on any anticoagulation. Patient's family updated on patient's condition. Will continue to manage patient in ICU with close observation. Case discussed with Attending Dr. Castillo and Dr. Birmingham PGY3. Monse Diana PGY1 Disclaimer: This note was dictated by speech recognition. Minor errors in rehabilitation inspector may be present due to voice recognition software.
[2024-10-11 16:04] LABS: Alanine Aminotransferase 17 U/L (10-49); Albumin, Serum 2.9 gm/dL (3.5-5.0); Albumin/Globulin Ratio 1.2 (1.2-2.2); Alkaline Phosphatase 132 U/L (46-116); Anion Gap 25 (7-16); Aspartate Amino Transferase 38 U/L (0-34); BUN/Creatinine Ratio 8 Ratio (12-20); Bilirubin,Total 1.3 mg/dL (0.3-1.2); Blood Urea Nitrogen 27 mg/dL (9-23); Calcium 8.5 mg/dL (8.3-10.6); Calcium (Corrected) 9.4 mg/dL (8.5-10.1); Carbon Dioxide 18.3 mMol/L (20.0-31.0); Chloride 94 mMol/L (98-107); Creatinine (Component) 3.5 mg/dL (0.6-1.3); Estimated Creatinine Clearance 16.6 mL/min (>60); Globulin 2.5 gm/dL (2.3-3.5); Glucose 82 mg/dL (74-106); Magnesium 2.5 mg/dL (1.6-2.6); Osmolality,Calculated 277 (275-295); Potassium 5.5 mMol/L (3.4-5.1); Sodium 137 mMol/L (136-145); Total Protein 5.4 gm/dL (5.7-8.2); eGFR 15 See Note
[2024-10-11 16:05] LABS: Allen Test Not Performed; Puncture Site Arterial Line
[2024-10-11 16:06] LABS: Troponin I 5.586 ng/mL (0.0-0.045)
[2024-10-11] MEDS: Norepinephrine/D5W 8mg/250ml 8 MG/250 ML BAG 75.501 MG IV (16:57)
[2024-10-11 17:04] LABS: Reflex Lactate? Y
[2024-10-11] MEDS: EPINEPHrine in NS 4 MG IVPB 4 MG/250 ML BAG 11.4 MG IV (17:11)
[2024-10-11 17:23] LABS: Lactic Acid, 3 HR 13.5 mMol/L (0.4-2.0)
[2024-10-11] MEDS: fentaNYL 2,500 MCG/250 ML BAG 2,500 MCG/250 ML BAG IV (17:25)
[2024-10-11] MEDS: DEXTROSE 50%-WATER INJ 50 ML SYRINGE IV (17:42)
[2024-10-11] MEDS: INSULIN HUM REGULAR 1 UNIT/0.01 ML (PER UNIT) 5 UNIT IV (17:46)
[2024-10-11] MEDS: HYDROCORTISONE SOD SUCC INJ 100 MG VIAL 50 MG IV (17:47)
[2024-10-11 17:48] LABS: Troponin I 5.634 ng/mL (0.0-0.045)
[2024-10-11 18:17] LABS: Reflex Lactate? Y
[2024-10-11] MEDS: Norepinephrine/D5W 8mg/250ml 8 MG/250 ML BAG 77.754 MG IV (19:35)
--- NOTE | 2024-10-11 19:52 | PC.NURSE ---
Dr. Lynne aware
--- NOTE | 2024-10-11 20:10 | PC.NURSE ---
Addendum entered by Michelle Gamino RN 10/11/24 20:12: at 1458 patient HR at 32, Dr. Castillo made aware, pt continues to have pulse, code blue form complete, orders received and carried out at bedside, patient intubated Original Note: at 1034 pt having frequent PVCs and in bigeminy, Dr. Diana made aware
[2024-10-11 20:48] LABS: Lactic Acid, 3 HR 9.8 mMol/L (0.4-2.0)
[2024-10-11] MEDS: PHENYLEPHRINE HCL 40 MG in SODIUM CHLORIDE 0.9% 96 ML 10.488 MG IV (21:08)
[2024-10-11] MEDS: EPINEPHrine in NS 4 MG IVPB 4 MG/250 ML BAG 70.68 MG IV (22:06)
[2024-10-11 22:59] LABS: Troponin I 7.713 ng/mL (0.0-0.045)
[2024-10-11] MEDS: Norepinephrine/D5W 8mg/250ml 8 MG/250 ML BAG 82.262 MG IV (23:01)
--- NOTE | 2024-10-11 23:58 | ESPR_ITS ---
RE: JUSTINE DAIGLE : 1965 DATE OF SERVICE: 10/11/2024 SUBJECTIVE: The patient is a 59-year-old female with a past medical history of multiple medical problems, comorbidities, longstanding issues including mitral stenosis, mitral regurgitation, pulmonary hypertension and history of recent surgery for gallbladder with drainage placed. She came to the hospital with what appeared to be alternate mental status, weakness, shortness of breath, found to have acute non-ST segment elevation and myocardial infarction with troponin elevation initially, AFIB, RVR, now back in sinus rhythm, but now developed new onset left bundle branch block and troponin level was persistently high. He also developed sepsis with white count elevation with white count persistently elevated at 26.9 despite antibiotic therapy, now has developed hypotension, shock, possibly a combination of septic shock and cardiogenic shock. Bedside echo did show severe LV dysfunction, RV dysfunction as well, quite concerning, but the patient is acutely ill with severe lactic acidosis. The troponin level continues to be persistently elevated at 5.6. The troponin has peaked at 7.1 on 10/08/2024, but has come down to 5, but persistently elevated suggesting of either type II troponin or multivessel disease with acute myocardial infarction. LABORATORY DATA: Her lab data showed significant problems, severe lactic acidosis, metabolic acidosis, creatinine 3.5, BUN 27, and lactate level went to 12.8 and 16 subsequently, has come down since then, but she is in four vasopressors, norepinephrine, epinephrine, vasopressin and dobutamine. She has still left bundle branch block. She is depending on mechanical ventilation, 100% FiO2. Her ABG today, she is severely acidotic at pH 7.09, PCO2 of 44, PO2 of 87, metabolic acidosis, later on 7.20, PCO2 of 46, PO2 131, which is quite concerning. Hematology showed hemoglobin 8.8, stable, white count is 26.9, platelets at 218. OBJECTIVE: General: She is critically ill, acutely ill, on ventilator. Vital Signs: Blood pressure is 90/40 on multiple vasopressors. Heart rate is in 90. Left bundle branch block on EKG. Head: Atraumatic. Neck: Supple. Lungs: Decreased basal. Heart: Sounds distant. Abdomen: Thin and soft. Extremities: Edema of both feet. /RECTAL: Not performed. DIAGNOSTIC DATA: EKG showed a left bundle branch block, appears to be definitely changed, new onset of sinus rhythm. Bedside echo showed worsening of LV dysfunction and RV dysfunction as RV enlarged. ASSESSMENT: 1. Cardiogenic shock and septic shock, possibly due to combination of sepsis and acute myocardial infarction. 2. Severe lactic acidosis and metabolic acidosis. 3. Persistent severe leukocytosis. 4. History of recent gallbladder surgery, persistent drainage. 5. Chronic kidney disease status post renal transplant failure, now on hemodialysis. 6. Hypoxic respiratory failure. RECOMMENDATIONS: The patient's prognosis is extremely poor. I discussed with the family that she is not a candidate for coronary angiogram. She will not survive an angiogram at this time. The troponin level still could be type 2 troponin due to severe sepsis and acute illness, but more likely that she might have had acute myocardial infarction with multivessel CAD, also has a combination of mitral stenosis and regurgitation, making it highly complex for this patient to go through any cardiac catheterization or angiogram at this time and unstable. Prognosis is poor. Condition is critical. Spend more than one hour with the patient and the family counseling and evaluating the patient. DT: 22:50:27 TT: 23:57:00 Ref: [id number] - TID: [id number]
[2024-10-12] VITALS (70 sets, daily range): BP systolic 13–174; BP diastolic 11–66; PULSE 0–106; RESP 0–34; TEMP 37.7–38.8; O2SAT 57–100
[2024-10-12 01:02] LABS: Base Excess -4 (-3-3); HCO3 21 mEq/L (20-26); O2 Saturation 101 % (91-98); PCO2 38 mmHg (32.0-48.0); PO2 300 mmHg (83-108); pH, Arterial 7.36 (7.35-7.45)
[2024-10-12 01:05] LABS: Allen Test Performed/OK; Inspired Oxygen, FIO2 100 %; Puncture Site Arterial Line
[2024-10-12] MEDS: Magnesium Sulfate 2 GM Ivpb 2 GM/50 ML BAG IV (01:32)
[2024-10-12] MEDS: HYDROCORTISONE SOD SUCC INJ 100 MG VIAL 50 MG IV (01:32)
[2024-10-12] MEDS: EPINEPHrine in NS 4 MG IVPB 4 MG/250 ML BAG 84.36 MG IV (01:33)
[2024-10-12] MEDS: Norepinephrine/D5W 8mg/250ml 8 MG/250 ML BAG 112.688 MG IV (02:19)
[2024-10-12] MEDS: VASOPRESSIN IN NS IVPB 20 UNIT/100 ML BAG 9 UNIT IV (02:19)
[2024-10-12] MEDS: DOBUTamine/D5w 500 MG IVPB 500 MG/250 ML BAG 20.429 MG IV (02:35)
[2024-10-12] MEDS: ACETAMINOPHEN 325 MG TABLET 650 MG PO (03:19)
[2024-10-12] MEDS: EPINEPHrine in NS 4 MG IVPB 4 MG/250 ML BAG 364.8 MG IV (03:40)
[2024-10-12] MEDS: Norepinephrine/NS 16mg/250ml 16 MG/250 ML BAG 114 MG IV (03:45)
[2024-10-12] MEDS: Sodium Bicarb Inj 8.4% SYR 50 ML SYRINGE IV ×2 (03:56→04:04)
[2024-10-12] MEDS: EPINEPHrine in NS 4 MG IVPB 4 MG/250 ML BAG 456 MG IV ×3 (04:00→05:18)
[2024-10-12 04:02] LABS: Base Excess -11 (-3-3); HCO3 15 mEq/L (20-26); O2 Saturation 101 % (91-98); PCO2 36 mmHg (32.0-48.0); PO2 376 mmHg (83-108); pH, Arterial 7.24 (7.35-7.45)
[2024-10-12 04:03] LABS: Inspired Oxygen, FIO2 100 %
[2024-10-12 04:05] LABS: Allen Test Not Performed; Puncture Site Arterial Line
[2024-10-12 04:06] LABS: Basophils % (Auto) 0 % (0-2.5); Eosinophils % (Auto) 0 % (0-10); Hematocrit 29.3 % (36.0-46.0); Immature Granulocytes % (Auto) 1 % (0-0); Immature Granulocytes Auto 0.19 Thou/mm3 (0.00-0.00); Lactate (Lactic Acid) 10.9 mMol/L (0.4-2.0); Lymphocytes # (Auto) 0.4 Thou/mm3 (1.0-4.8); Lymphocytes % (Auto) 2 % (10-50); Mean Corpuscular HGB Conc 29.7 g/dl (31.0-37.0); Mean Corpuscular Hemoglobin 28.4 pg (25.0-35.0); Mean Corpuscular Volume 96 fL (80-100); Monocytes # (Auto) 0.6 Thou/mm3 (0.0-0.8); Monocytes % (Auto) 3 % (0-12); Neutrophils # (Auto) 21.5 Thou/mm3 (1.8-7.7); Neutrophils % (Auto) 95 % (37-80); Nucleated Red Blood Cell # 0.06 Thou/mm3 (0.00-0.00); Nucleated Red Blood Cell % 0 /100 WBC (0); Platelet Count 210 Thou/mm3 (140-440); RDW Standard Deviation 63.7 fL (36.4-46.3); Red Blood Count 3.06 Miln/mm3 (4.00-5.20); White Blood Count 22.7 Thou/mm3 (3.6-11.0)
[2024-10-12 04:08] LABS: Hemoglobin 8.7 g/dL (12.0-16.0)
[2024-10-12 04:24] LABS: Alanine Aminotransferase 24 U/L (10-49); Albumin, Serum 2.6 gm/dL (3.5-5.0); Alkaline Phosphatase 123 U/L (46-116); Anion Gap 22 (7-16); Aspartate Amino Transferase 77 U/L (0-34); BUN/Creatinine Ratio 8 Ratio (12-20); Bilirubin,Total 1.3 mg/dL (0.3-1.2); Blood Urea Nitrogen 31 mg/dL (9-23); Calcium 7.7 mg/dL (8.3-10.6); Calcium (Corrected) 8.8 mg/dL (8.5-10.1); Chloride 92 mMol/L (98-107); Creatinine (Component) 3.7 mg/dL (0.6-1.3); Estimated Creatinine Clearance 15.7 mL/min (>60); Globulin 2.5 gm/dL (2.3-3.5); Glucose 360 mg/dL (74-106); Magnesium 3.2 mg/dL (1.6-2.6); Osmolality,Calculated 278 (275-295); Phosphorous 8.1 mg/dL (2.4-5.1); Potassium 5.5 mMol/L (3.4-5.1); Sodium 128 mMol/L (136-145); Total Protein 5.1 gm/dL (5.7-8.2); eGFR 14 See Note
[2024-10-12 04:28] LABS: Carbon Dioxide 13.9 mMol/L (20.0-31.0)
[2024-10-12 04:36] LABS: INR 3.5 (0.9-1.3); Partial Thromboplastin Time 65.8 Seconds (22.0-36.0)
--- NOTE | 2024-10-12 04:48 | EVENTNT_ITS ---
Documentation for date of: 10/12/24 Event Note Event Note: Around 1872 family decided to transition patient to DNR. is aware of poor prognosis and wishes to avoid any ACLS measures. Pressers are at max titration and patient is still having soft blood pressure. Family wishes to t ransition to comfort care. Case discussed with attending Dr. Lashonda Hewitt MD PGY3.
--- NOTE | 2024-10-12 04:49 | PC.RT ---
sats dropping to the low 80s started to ventilate pt around 04:00 for a total time of 15 min without improvement, place pt back in the vent fio2 already 100% no changes per DR. Hewitt.
[2024-10-12] MEDS: PHENYLEPHRINE HCL 40 MG in SODIUM CHLORIDE 0.9% 96 ML 45.6 MG IV (05:23)
[2024-10-12] MEDS: SCOPOLAMINE 1 MG TDSY TOP (05:34)
[2024-10-12] MEDS: MORPHINE SULF INJ 10 MG/ML VIAL 2 MG IVP (05:35)
--- NOTE | 2024-10-12 06:06 | PD.DPN ---
Documentation for date of: 10/12/24 Pronouncement Note Date and Time of Date of : 10/12/24 Time of : 06:05 PCOD Preliminary cause of : Cardiopulmonary arrest Contributing Factors (1) Troponin level elevated: (2) Hypotension: (3) ESRD (end stage renal disease) on dialysis: (4) Acute gangrenous cholecystitis: (5) Coccidioidomycosis: (6) Pneumonia: (7) Sepsis: (8) Chronic diastolic congestive heart failure due to valvular disease: (9) Lupus: Summary Additional details: Called by nurse at 0600 to pronounce Mrs. Elma Vela. On exam no heart sounds or breath sounds were noted after a minute of auscultation. No pulses were felt and pupils were fixed and dilated without pupillary light reflex. Patient was pronounced at 0605 on 10/12/2024. Attending made aware and condolences given to family who were at bedside. Attending Dr. Gallego made aware. Jose Eduardo Hewitt MD PGY3. Additional Data Confirmation of : no pulse, no respirations, no heart sounds and pupils fixed and dilated Family: at bedside Attending/PCP notified?: Yes Attending physician: Dr. Gallego Was code activated?: No Organ bank notified?: Yes
--- NOTE | 2024-10-12 06:55 | DES_ITS ---
<Statement entered by Enzo Birmingham DO - 10/13/24 11:29> Senior attestation: Patient was examined and case was reviewed with team including attending physician. Note reviewed, I agree with its contents and agree with the patient's care. As noted in the summary, patient was pending transfer for higher level of care, was requiring multiple vasopressor support and was deemed too critical to safely undergo catheterization by cardiology team. Per family and decision maker, patient's management was transitioned to comfort care approaches, patient as detailed in pronouncement and summary notes. Condolences were given to patient's family. Enzo Birmingham DO PGY-3 <Statement entered by Kay Castillo MD - 10/13/24 10:58> TOTAL TIME: 45MINUTES ON DIRECT MEDICAL CARE, MANAGEMENT - COORDINATION AND COUNSELING > 50% OF TOTAL TIME I reviewed the resident?s note and agree with findings and plan as documented in the resident?s note. Documentation for date of: 10/12/24 Summary Date and Time Date of admission: 10/07/24 22:21 Date of : 10/12/24 Time of : 06:05 Summary Details: Date of : 10/12/24 Time of : 06:05 On exam no heart sounds or breath sounds were noted after a minute of auscultat ion. No pulses were felt and pupils were fixed and dilated without pupillary light reflex. Patient was pronounced at 0605 on 10/12/2024. Attending made aware and condolences given to family who were at bedside. Hospital Course: Ms. 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 Patient's presyncopal episode was attributed to hypoglycemia, on further workup elevated troponins were noted, peak troponin elevation 7.493, cardiology was consulted, patient was scheduled for cardiac catheterization but had supratherapeutic INR as patient was on warfarin at home, warfarin was being held to achieve therapeutic INR for cardiac catheterization. Patient had rapid response on 10/09/24 due to concern of septic shock, ICU team was consulted at bedside patient was noted to have mean arterial pressure around 65, NICOM assessment showed 31% SVI, patient was fluid responsive and was given 500 cc bolus of NS, CT abdomen pelvis with contrast showed bibasilar pneumonia, percutaneous cholecystectomy drainage catheter satisfactory position decrease in size of cystic mass in the right retroperitoneum with drainage catheter in satisfactory position, patient eventually developed septic shock, underlying source was believed to be patient's pneumonia, was started on pressors. With the progression of hospital course patient developed significant right upper quadrant tenderness that progressed to generalized abdominal tenderness, drain cultures were suspicious for bacteria, patient's antibiotic therapy was escalated to meropenem, patient had increased pressor requirement was started on Levophed, vasopressin and phenylephrine, attempt was made to transfer patient to multiple facilities, patient was accepted at [facility] was pending bed. Later in the day on 10/11 around 3 PM patient's heart rate was noted to be in low 30s patient was eventually intubated and stabilized on IV dobutamine, IV epinephrine, norepinephrine, phenylephrine and Levophed. Cardiology was consulted as bedside echo showed significant strain of right ventricle and was high suspicion of cardiogenic shock cardiology talk to family in detail and explained about patient is a poor candidate for an angiogram and there is high suspicion of acute myocardial infarction considering patient's cardiac history. Around carpet inspector 10/13 decision was made to transition patient to DNR by family was aware of poor prognosis and eventually decided to transition to comfort care, after starting patient on comfort care eventually around 6 AM on exam no heart sounds or breath sounds were noted after a minute of auscultation. No pulses were felt and pupils were fixed and dilated without pupillary light reflex. Patient was pronounced at 0605 on 10/12/2024. Diagnosis: #Cardiopulmonary Arrest #Septic Shock secondary to #Biliary Infection, indwelling biliary drain #Pneumonia, Community-acquired pneumonia versus healthcare associated pneumonia #NSTEMI #Cardiogenic Shock #HFmEF EF 45% #Atrial fibrillation #History of mitral stenosis #Concern of QTc prolongation #Chronic diarrhea #Status post partial cholecystectomy, biliary and MATIAS drain intact #End-stage renal disease #Status post renal transplant #History of SLE with lupus nephritis status postrenal transplant on immunosuppression #Type 2 diabetes mellitus, insulin-dependent #Presyncope likely secondary to #Hypoglycemia in the setting of insulin use and poor oral intake #History of antiphospholipid antibody syndrome (on Coumadin) #History of gout #Valley fever, by history #Stage I sacral ulcer #Unstageable ulcer, left hip Case discussed with Attending Dr. Castillo and Dr. Birmingham PGY3. Monse Diana PGY1 Disclaimer: This note was dictated by speech recognition. Minor errors in stockbroker may be present due to voice recognition software. Additional Data Confirmation of as documented by pronouncing clinician: no pulse, no respirations, no heart sounds, pupils fixed and dilated and other Family: at bedside Attending/PCP notified?: Yes Attending physician: Kay Castillo MD Was code activated?: No Organ bank notified?: Yes Visit Providers Provider Primary care physician: Ralf Ozuna MD Admitting clinician: Randall Nguyễn Attending physician on admission: Randall Nguyễn Consults: 10/07/24 22:06 Consult to Cardiology Stat Comment: Consulting Provider: Sarath Waters 10/08/24 01:12 Referral Infection Control Routine Comment: Reason for Infection Control Referral: Current Dialysis Patient 10/08/24 02:13 Consult to Nephrology Routine Comment: Consulting Provider: Wanda Suresh 10/08/24 06:36 Referral Registered Dietitian Routine Comment: 10/08/24 06:37 Referral Wound Care Routine Comment: 10/08/24 12:15 Referral Physical Therapy Routine Comment: Physician Instructions: 10/09/24 18:04 Referral Pharmacy Routine Comment: Reason for Consult: Renally Dose Medications 10/11/24 10:37 Referral - Customer Sales Advisor Stat Service Needed for Transfer: Gastroenterology Addl Comments:: Patient needs stat transfer for ERCP, Septic Shock suspected source Biliary tract. Pronouncing clinician: Jose Eduardo Hewitt Diagnosis PCOD Cause of : Cardiopulmonary arrest Contributing Factors (1) Troponin level elevated: (2) Hypotension: (3) ESRD (end stage renal disease) on dialysis: (4) Acute gangrenous cholecystitis: (5) Coccidioidomycosis: (6) Pneumonia: (7) Sepsis: (8) Chronic diastolic congestive heart failure due to valvular disease: (9) Lupus: Discharge Plan Plan Patient Disposition: Patient condition on transfer: Stable Prescriptions/Referrals Referrals: Ralf Ozuna MD [Primary Care Provider] - Patient/Caregiver Discharge Instructions Print Language: Urdu
[2024-10-12 07:00] LABS: Reflex Lactate? Y
--- NOTE | 2024-10-12 07:19 | PC.NURSE ---
spoke with Lizzie at 0700 to report [phone] call back from Josie Alston patient not a candidate for DONOR, OPA#[phone]
--- NOTE | 2024-10-12 10:50 | PC.NURSE ---
patient TOD 06, post mortem cares complete, transported with Lisa at 0958, pt spouse Kevin at bedside
== END 2024-10-12 06:05 | disposition expired | DRG 871 ==
LOC: SERX 22:11 → SERHOLD 22:47 → S2NX 10-08 00:13 → S2SX 10-09 18:10
PROVIDERS: Internal Medicine; Registered Nurse General Practice; Student in an Organized Health Care Education/Training Program; Admitting Provider Internal Medicine; Emergency Provider Emergency Medicine; PCP Family Medicine; Visit Provider Student in an Organized Health Care Education/Training Program
DX: A41.9 Sepsis, unspecified organism (principal); I21.4 Non-ST elevation (NSTEMI) myocardial infarction; N18.6 End stage renal disease; J96.91 Respiratory failure, unspecified with hypoxia; R65.21 Severe sepsis with septic shock; D68.61 Antiphospholipid syndrome; I13.2 Hypertensive heart and chronic kidney disease with heart failure and with stage 5 chronic kidney disease, or end stage renal disease; I50.32 Chronic diastolic (congestive) heart failure; Z94.0 Kidney transplant status; K81.0 Acute cholecystitis; E11.649 Type 2 diabetes mellitus with hypoglycemia without coma; Z99.2 Dependence on renal dialysis; I05.0 Rheumatic mitral stenosis; M32.14 Glomerular disease in systemic lupus erythematosus; Z79.4 Long term (current) use of insulin; E11.22 Type 2 diabetes mellitus with diabetic chronic kidney disease; M10.9 Gout, unspecified; I48.0 Paroxysmal atrial fibrillation; E87.6 Hypokalemia; Z99.3 Dependence on wheelchair; M79.7 Fibromyalgia; I46.9 Cardiac arrest, cause unspecified; L98.429 Non-pressure chronic ulcer of back with unspecified severity; E83.39 Other disorders of phosphorus metabolism; E78.5 Hyperlipidemia, unspecified; I05.8 Other rheumatic mitral valve diseases; K82.A1 Gangrene of gallbladder in cholecystitis; R57.0 Cardiogenic shock; Z66 Do not resuscitate; Z51.5 Encounter for palliative care; K52.9 Noninfective gastroenteritis and colitis, unspecified
CPT/HCPCS: 36415; 36600; 71045; 74177; 76700; 80048; 80053; 80202; 80307; 81001; 82607; 82746; 82803; 83036; 83605; 83615; 83690; 83735; 83880; 84100; 84484; 85025; 85610; 85730; 87040; 87070; 87077; 87081; 87186; 87205; 93005; 93306; 94002; 94003; 94640; 94664; 99291; A4649; J0171; J1250; J1720; J1815; J1956; J2021; J2185; J2270; J2371; J2470; J2543; J2598; J3010; J3370; J3475; J3490; J7030; J7040; J7050; J7120; J7507; J7512; Q5105; Q9967; A9270